=== PATIENT | female | born 1955 | race Caucasian/White ===

== ENCOUNTER 2017-11-15 09:16 | Inpatient (IN) ==
--- NOTE | 2017-11-15 10:01 | Emergency Department Note ---
Disposition Clinical Impression: Syncope Qualifiers: Syncope type: unspecified Qualified Code(s): R55 - Syncope and collapse Disposition: Still a Patient Referrals: Karolina Melo [Primary Care Provider] - General Adult HPI - General Chief complaint: ED Recheck/Abnormal Lab/Rx Stated complaint: Low potassium Time Seen by Provider: 11/15/17 09:34 Source: patient, family Limitations: no limitations - History of Present Illness Pain Scale: 6 - Related Data Home Medications Medication Instructions Recorded Confirmed Acetaminophen [Tylenol] 500 mg PO Q6HR PRN 01/20/16 11/15/17 Amitriptyline [Elavil] 150 mg PO HS 01/20/16 11/15/17 Cholecalciferol (Vitamin D3) 5,000 unit PO DAILY 01/20/16 11/15/17 [Vitamin D3] Docusate Sodium [Colace] 200 mg PO DAILY 01/20/16 11/15/17 FLUoxetine HCl [Prozac] 40 mg PO DAILY 01/20/16 11/15/17 Multivitamin [Multi-Day Vitamins] 1 tab PO DAILY 01/20/16 11/15/17 Naproxen [Naprosyn] 250 mg PO Q6H PRN 01/20/16 11/15/17 Vitamin B Complex [B Complex] 1 tab PO DAILY 01/20/16 11/15/17 valACYclovir [Valtrex] 500 mg PO DAILY 01/20/16 11/15/17 Buspirone HCl [Buspar] 15 mg PO BID 09/18/17 11/15/17 Propranolol [Inderal] 10 mg PO TID PRN 09/18/17 11/15/17 Atorvastatin Calcium [Lipitor] 20 mg PO HS 11/15/17 11/15/17 DiphenhydraMINE [Benadryl] 50 mg PO HS 11/15/17 11/15/17 Levothyroxine [Synthroid] 88 mcg PO 0630 11/15/17 11/15/17 Previous Rx's Medication Instructions Recorded Oxycodone HCl/Acetaminophen 1 each PO Q4HR 5 Days #25 tablet 11/09/17 [Percocet 5-325 mg Tablet] Allergies Allergy/AdvReac Type Severity Reaction Status Date / Time codeine Allergy Anaphylaxis Verified 11/15/17 07:30 Iodinated Contrast- Oral and Allergy Anaphylaxis Verified 11/15/17 07:30 IV Dye [Iodinated Contrast Media - IV Dye] morphine Allergy Anaphylaxis Verified 11/15/17 07:30 phenobarbital Allergy Anxiety Verified 11/15/17 07:30 promethazine [From Phenergan] Allergy Shakiness Verified 11/15/17 07:30 titanium Allergy See Verified 11/15/17 07:30 Comments Past Medical History - Past Medical History Medical history: Reports: asthma, GERD, kidney stones, thyroid disease, other Surgical history: Reports: appendectomy, cancer surgery, cataract, cholecystectomy, herniorrhaphy, hysterectomy, orthopedic, other, splenectomy, ZIGGY/BSO, thyroidectomy, other Psychiatric history: Reports: anxiety, depression, other 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 I agree with the documented findings, disposition and treatment plan as described except to the extent set forth below. ED attending: Patient's emergency medicine resident Dr. Ethel CONTRERAS. Please see copy of this note for H&P evaluation and management and ED disposition. We both had independent [id number] time in contact with this patient. Briefly: 8-year-old female sent from [facility]. His postoperative the humeral fixation by orthopedic surgery however they determined that her potassium was low. In addition to low potassium patient has had several incidents of well defined sudden onset syncope where she struck her head several times. No external signs of trauma GCS 15 patient is on blood thinner patient will get a reevaluation of her electrolytes will do this and be workup with admission anticipated. Head CT EKG screening labs are also pending. Provided 30 minutes of critical care service for this patient. Time: 09:59 Vital Signs Temperature 98.5 F 11/15/17 09:25 Pulse Rate 64 11/15/17 09:25 Respiratory Rate 18 11/15/17 09:25 Blood Pressure 112/67 11/15/17 09:25 O2 Sat by Pulse Oximetry 96 11/15/17 09:25 Temperature 98.5 F 11/15/17 09:25 Pulse Rate 64 11/15/17 09:25 Respiratory Rate 18 11/15/17 09:25 Blood Pressure 112/67 11/15/17 09:25 O2 Sat by Pulse Oximetry 96 11/15/17 09:25 Oxygen Delivery Oxygen Delivery Room Air
[2017-11-15 11:14] LABS: Basophils # 0.1 K/mcL (0.0-0.2); Basophils % 0.6 %; Eosinophils # 1.6 K/mcL (0.0-0.6); Eosinophils % 11.6 %; Hematocrit 30.3 % (35.3-44.9); Hemoglobin 9.8 g/dL (11.5-15.4); Immature Granulocytes % 0.6 % (0-4); Lymphocytes % 43.3 %; Mean Corpuscular HGB Conc 32.3 g/dL (31.6-35.5); Mean Corpuscular Hemoglobin 27.5 pg (28.0-33.3); Mean Corpuscular Volume 84.9 fL (83.0-100.0); Monocytes # 1.7 K/mcL (0.0-1.3); Monocytes % 12.5 %; Neutrophils # 4.4 K/mcL (1.6-8.9); Nucleated Red Blood Cells 0.5 /100 WBC (0); Platelet Count 417 K/mcL (140-400); Red Blood Count 3.57 M/mcL (3.82-4.97); Red Cell Distribution Width 19.2 % (11.5-14.5); Segmented Neutrophils % 31.4 %
[2017-11-15 11:27] LABS: Troponin I < 0.03 ng/mL (< 0.04)
[2017-11-15 11:49] LABS: BUN/Creatinine Ratio 18 (6-26); Blood Urea Nitrogen 12 mg/dL (8-23); Calcium 8.1 mg/dL (8.6-10.3); Carbon Dioxide 25 mEq/L (23-29); Chloride 103 mEq/L (98-107); Glucose 92 mg/dL (70-105); Osmolality,Calculated 287 (280-300); Potassium 3.2 mEq/L (3.5-5.1); Sodium 139 mEq/L (136-145); eGFR For African Americans > 60 (> 60); eGFR For Non-African Americans > 60 (> 60)
[2017-11-15] MEDS ORDERED: *HR* FentaNYL (PF) 100 MCG/2 ML VIAL IVP ONE (12:04)
[2017-11-15] MEDS ORDERED: Potassium Effervescent 25 MEQ TABLET.EFF PO ONE (12:05)
--- NOTE | 2017-11-15 12:05 | Emergency Department Note ---
Disposition Clinical Impression: Hypokalemia Syncope Qualifiers: Syncope type: unspecified Qualified Code(s): R55 - Syncope and collapse Disposition: Admitted As Inpatient Condition: Good Time of Disposition: 12:32 General Adult HPI - General Chief complaint: ED Recheck/Abnormal Lab/Rx Stated complaint: Low potassium Time Seen by Provider: 11/15/17 09:34 Source: patient, family Mode of arrival: wheelchair Limitations: no limitations Nursing Notes Reviewed: Yes Vital Signs Reviewed: Yes - History of Present Illness HPI Narrative: 62-year-old female with chronic interstitial cystitis, hypothyroidism presenting to the emergency department with chief complaint of hypokalemia and syncope. Patient states for the past 5-6 days she has been having random episodes of syncope. These have been witnessed by her . She denies any prodrome to these syncopal episodes. She denies chest pain or shortness of breath. Denies dizziness. She states she will just passed out. According to at bedside patient has fallen multiple times in the past 5-6 days. After the first fall she had multiple bruising and abrasions to the left side. Second fall left her with a right humeral fracture. Patient was sent to the emergency department at that time and referred to orthopedics. Patient went in today for a outpatient humeral fixation and it was found that she was hypokalemic. She was then sent here for further evaluation and admission for her hypokalemia. At this time patient denies any chest pain, shortness of breath or dizziness. Denies any fevers or recent illnesses. Pain Scale: 3 - Related Data Home Medications Medication Instructions Recorded Confirmed Acetaminophen [Tylenol] 500 mg PO Q6HR PRN 01/20/16 11/15/17 Amitriptyline [Elavil] 150 mg PO HS 01/20/16 11/15/17 Cholecalciferol (Vitamin D3) 5,000 unit PO DAILY 01/20/16 11/15/17 [Vitamin D3] Docusate Sodium [Colace] 200 mg PO DAILY 01/20/16 11/15/17 FLUoxetine HCl [Prozac] 40 mg PO DAILY 01/20/16 11/15/17 Multivitamin [Multi-Day Vitamins] 1 tab PO DAILY 01/20/16 11/15/17 Naproxen [Naprosyn] 250 mg PO Q6H PRN 01/20/16 11/15/17 Vitamin B Complex [B Complex] 1 tab PO DAILY 01/20/16 11/15/17 valACYclovir [Valtrex] 500 mg PO DAILY 01/20/16 11/15/17 Buspirone HCl [Buspar] 15 mg PO BID 09/18/17 11/15/17 Propranolol [Inderal] 10 mg PO TID PRN 09/18/17 11/15/17 Atorvastatin Calcium [Lipitor] 20 mg PO HS 11/15/17 11/15/17 DiphenhydraMINE [Benadryl] 50 mg PO HS 11/15/17 11/15/17 Levothyroxine [Synthroid] 88 mcg PO 0630 11/15/17 11/15/17 Previous Rx's Medication Instructions Recorded Oxycodone HCl/Acetaminophen 1 each PO Q4HR 5 Days #25 tablet 11/09/17 [Percocet 5-325 mg Tablet] Allergies Allergy/AdvReac Type Severity Reaction Status Date / Time codeine Allergy Anaphylaxis Verified 11/15/17 07:30 Iodinated Contrast- Oral and Allergy Anaphylaxis Verified 11/15/17 07:30 IV Dye [Iodinated Contrast Media - IV Dye] morphine Allergy Anaphylaxis Verified 11/15/17 07:30 phenobarbital Allergy Anxiety Verified 11/15/17 07:30 promethazine [From Phenergan] Allergy Shakiness Verified 11/15/17 07:30 titanium Allergy See Verified 11/15/17 07:30 Comments All systems ED: reviewed and negative except as stated. Neurological: Reports: other (syncope) Past Medical History - Past Medical History Attestation: Yes The following information was validated with the patient. 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 Absent: scleral icterus, conjunctival injection - ENT ENT exam: normal exam, mucous membranes moist - Neck Neck exam: Present: normal inspection, full ROM. Absent: tenderness, meningismus - Chest Chest inspection: Present: normal inspection, symmetric chest wall rise. Absent : tenderness, rash - Respiratory Respiratory exam: Present: normal lung sounds bilaterally. Absent: respiratory distress, wheezes - Cardiovascular Cardiovascular exam: Present: regular rate, normal rhythm, normal heart sounds - Abdominal Exam Abdominal exam: Present: soft, Non-Tender. Absent: distention, guarding, rebound - Extremities Exam Extremities exam: Present: other (Right arm in sling. Ecchymosis noted to the left upper extremity and right upper extremity. Distal pulses 2+. Ecchymosis noted to the left outer thigh. Abrasions that are well-healing noted over the left knee. ) - Neurological Exam Neurological exam: Present: alert, oriented X3, CN II-XII intact. Absent: motor sensory deficit - Psychiatric Psychiatric exam: Present: normal affect, normal mood - Skin Skin exam: Present: warm, intact Course Course Narrative: 62-year-old female sent to the emergency department for hypokalemia and syncope. Concern for random syncopal episodes at this time. We will perform cardiac workup along with CT of the head. This will include troponin and EKG with CT of the head along with CBC and BMP. Patient is alert and oriented 3 in the room with stable vital signs. Disposition most likely admission but pending results. Patient agrees with this plan. - Reevaluation(s) Reevaluation #1: Patient's laboratory analysis shows hypokalemia at 3.2. We will orally replete her. Due to patient's syncopal episodes we will plan to admit her for further evaluation. CT of the head within normal limits. Patient is alert and oriented 3 in the room with stable vital signs. I spoke with the hospitalist on-call Dr. Cruz who agrees to accept the patient at this time. Vital Signs Temperature 98.5 F 11/15/17 09:25 Pulse Rate 64 11/15/17 09:25 Respiratory Rate 18 11/15/17 09:25 Blood Pressure 112/67 11/15/17 09:25 O2 Sat by Pulse Oximetry 96 11/15/17 09:25 Temperature 98.5 F 11/15/17 09:25 Pulse Rate 66 03/23/18 11:03 Respiratory Rate 14 11/15/17 11:03 Blood Pressure 124/71 11/15/17 11:03 O2 Sat by Pulse Oximetry 96 11/15/17 11:03 Oxygen Delivery Oxygen Delivery Room Air Medical Decision Making - Lab Data Result diagrams: 11/15/17 10:52 11/15/17 10:52 Lab Results 11/15/17 11/15/17 Range/Units 10:52 10:52 WBC 13.9 H (4.3-11.1) K/mcL RBC 3.57 L (3.82-4.97) M/mcL Hgb 9.8 L (11.5-15.4) g/dL Hct 30.3 L (35.3-44.9) % MCV 84.9 (83.0-100.0) fL MCH 27.5 L (28.0-33.3) pg MCHC 32.3 (31.6-35.5) g/dL RDW 19.2 H (11.5-14.5) % Plt Count 417 H (140-400) K/mcL MPV 12.0 (9.4-12.4) fL Immature Gran % 0.6 (0-4) % Seg Neutrophils % 31.4 % Lymphocytes % 43.3 % Monocytes % 12.5 % Eosinophils % 11.6 % Basophils % 0.6 % Neutrophils # 4.4 (1.6-8.9) K/mcL Lymphocytes # 6.0 H (0.6-4.6) K/mcL Monocytes # 1.7 H (0.0-1.3) K/mcL Eosinophils # 1.6 H (0.0-0.6) K/mcL Basophils # 0.1 (0.0-0.2) K/mcL Nucleated RBCs/100 WBC 0.5 H (0) /100 WBC Sodium 139 (136-145) mEq/L Potassium 3.2 L (3.5-5.1) mEq/L Chloride 103 (98-107) mEq/L Carbon Dioxide 25 (23-29) mEq/L BUN 12 (8-23) mg/dL Creatinine 0.66 (0.60-1.20) mg/dL Est GFR ( Amer) > 60 (> 60) Est GFR (Non-Af Amer) > 60 (> 60) BUN/Creatinine Ratio 18 (6-26) Glucose 92 (70-105) mg/dL Calculated Osmolality 287 (280-300) Calcium 8.1 L (8.6-10.3) mg/dL Troponin I < 0.03 (< 0.04) ng/mL - EKG Data EKG #1 EKG attestation: Yes I reviewed and interpreted this EKG. EKG results narrative: Sinus bradycardia. 59 bpm. Nonspecific T wave abnormality. GA interval 182, QRS 109, QTC 448. No signs of acute ST segment elevation or ischemia noted. Compared to previous EKG completed on 11/09/2017 no significant changes noted
[2017-11-15] MEDS ORDERED: *HR* OxyCODONE/APAP 7.5/325 TABLET PO PRN (12:51)
--- NOTE | 2017-11-15 13:09 | Internal Med History&Physical ---
<Phoenix Kellogg J - Last Filed: 11/15/17 15:00> Date of Encounter: 11/15/17 Time of Encounter: 13:07 Assessment and Plan (1) Syncope Current visit: Yes Status: Acute fall precaution, assist patient getting up from bed, monitor blood pressure . Echo cardiogram carotid ultrasound, Telemetry, orthostatic blood pressure Qualifiers: Syncope type: unspecified Qualified Code(s): R55 - Syncope and collapse (2) Hypokalemia Current visit: Yes Status: Acute Replete potassium with replacement protocol, recheck every 6hrs and place patient on telemetry (3) Fracture of humerus, proximal, right, closed Current visit: Yes Status: Acute Patient scheduled for Surgery to fix fractured humerus Qualifiers: Encounter type: initial encounter Fracture alignment: nondisplaced Qualified Code(s): S42.294A - Other nondisplaced fracture of upper end of right humerus, initial encounter for closed fracture (4) Anxiety and depression Current visit: Yes Status: Chronic continue home prozac and propranalol Internal Medicine - H&P: HPI Chief complaint: Hypokalemia, syncope and Right proximal humerus fracture Admitted From: Emergency Dept Plans for Post Hospital Care: Home History of present illness: Ms. Izaguirre is a 62 year old female female with medical history that include thyroidectomy, cholecystectomy, hysterectomy, splenectomy and bariatric surgery. Patient stated she has been having syncopal episode for the past seven days which resulted in six falls . The fall was responsible for the right humeral fracture. While being prepared for orthopedic intervention she was found to have hypokalemia. She is being admited to manage the hypokalemia, pain with planned surgicak intervention for Saturday11/18/2017. Past Med Surg Social Fam HX - Past Medical History Medical history: asthma, GERD, kidney stones, thyroid disease, other Psychiatric history: anxiety, depression, other - Past Surgical History Surgical History: appendectomy, cancer surgery, cataract, cholecystectomy, herniorrhaphy, hysterectomy, orthopedic, other, splenectomy, ZIGGY/BSO, thyroidectomy, other - Social History Smoking Status: Never smoker Smokeless Tobacco Status: No Alcohol use: occasionally Drug use: none - Family History Mother Living Status: Hx Family Cardiac Disorders: No Hx Family Respiratory Disorders: Yes (COPD) Hx Family Cancer: No Hx Family GI Disorders: No Hx Family Endocrine Disorder: No Hx Family Neuromuscular Disorders: No Hx Family Neurologic Disorders: No Hx Family HEENT Disorders: No Hx Family Autoimmune Disorders: No Father Living Status: Hx Family Cardiac Disorders: Yes (CHF, 4 MIs) Hx Family Respiratory Disorders: Yes (COPD) Hx Family Cancer: No Hx Family GI Disorders: No Hx Family Endocrine Disorder: No Hx Family Neuromuscular Disorders: No Hx Family Neurologic Disorders: No Hx Family HEENT Disorders: No Hx Family Autoimmune Disorders: No Internal Medicine - H&P: Meds Amitriptyline [Elavil] 150 mg PO HS 01/20/16 [History] Cholecalciferol (Vitamin D3) [Vitamin D3] 5,000 unit PO DAILY 01/20/16 [History] Docusate Sodium [Colace] 200 mg PO DAILY 01/20/16 [History] FLUoxetine HCl [Prozac] 40 mg PO DAILY 01/20/16 [History] Multivitamin [Multi-Day Vitamins] 1 tab PO DAILY 01/20/16 [History] Vitamin B Complex [B Complex] 1 tab PO DAILY 01/20/16 [History] valACYclovir [Valtrex] 500 mg PO DAILY 01/20/16 [History] Buspirone HCl [Buspar] 15 mg PO BID 09/18/17 [History] Propranolol [Inderal] 10 mg PO TID PRN 09/18/17 [History] Atorvastatin Calcium [Lipitor] 20 mg PO HS 11/15/17 [History] DiphenhydraMINE [Benadryl] 50 mg PO HS 11/15/17 [History] Levothyroxine [Synthroid] 88 mcg PO 0630 11/15/17 [History] Metoclopramide HCl 5 mg PO BID PRN 11/15/17 [History] Oxycodone HCl/Acetaminophen [Percocet 7.5-325 mg Tablet] 1 tab PO Q8H PRN [History] 3 Allergy/AdvReac Type Severity Reaction Status Date / Time codeine Allergy Anaphylaxis Verified 11/15/17 07:30 Iodinated Contrast- Oral and Allergy Anaphylaxis Verified 11/15/17 07:30 IV Dye [Iodinated Contrast Media - IV Dye] morphine Allergy Anaphylaxis Verified 11/15/17 07:30 phenobarbital Allergy Anxiety Verified 11/15/17 07:30 promethazine [From Phenergan] Allergy Shakiness Verified 11/15/17 07:30 titanium Allergy See Verified 11/15/17 07:30 Comments All Systems PM: A 10-system review of systems was performed and is negative for pertinent findings except as documented above in the HPI. - Constitutional Constitutional: falls - Cardiovascular Cardiovascular ROS IM: syncope - Respiratory Respiratory: cough - Genitourinary Genitourinary: as per HPI - Musculoskeletal Musculoskeletal ROS IM: arthralgias, limited range of motion - Integumentary Integumentary IM: as per HPI - Neurological Neurological ROS: as per HPI - Psychiatric Psychiatric: as per HPI, anxiety - Hematologic/Lymphatic Hematologic/Lymphatic: as per HPI - Constitutional Vitals: Temp Pulse Resp BP Pulse Ox 98.5 F 66 16 124/71 96 11/15/17 09:25 11/15/17 11:03 11/15/17 12:31 11/15/17 12:31 11/15/17 11:03 General appearance: Present: A&O X 3, pleasant, answers questions appropriately - Eye Eye exam: Present: PERRL Pupils: Present: PERRL - ENT ENT exam: Present: mucous membranes dry, mucous membranes moist - Neck Neck exam general surgery: Present: supple, trachea midline - Respiratory Respiratory exam: Present: CTAB - GI/Abdominal GI/Abdominal exam: Present: normal bowel sounds - Neurological Exam Neurological exam: Present: oriented X3 - Psychiatric Psychiatric exam: Present: normal mood Internal Med - H&P Results - Labs CBC & Chem 7: 11/15/17 10:52 11/15/17 10:52 <Silas Cruz - Last Filed: 11/15/17 15:17> Date of Encounter: 11/15/17 Time of Encounter: 13:45 Internal Medicine - H&P: [facility] History of present illness: Ms. Izaguirre is a 62 year old female All Systems PM: A 10-system review of systems was performed and is negative for pertinent findings except as documented above in the HPI. - Constitutional Vitals: Temp Pulse Resp BP Pulse Ox 98.2 F 76 18 105/59 95 11/15/17 13:19 11/15/17 13:19 11/15/17 13:19 11/15/17 13:19 11/15/17 13:19 Internal Med - H&P Results - Labs CBC & Chem 7: 11/15/17 10:52 11/15/17 10:52 - Attending Attestation I examined this patient and my medical decision-making was reviewed with the Nurse Practitioner, Phoenix Kellogg. I agree with the documented findings, disposition and treatment plan as described with any changes as documented below. 62-year-old female patient with history of asthma, gastroesophageal reflux disease, hypothyroidism, bariatric surgery presented to the ER from same day surgery as she was found to be hypokalemic. She has been having recurrent episodes of syncope over the past week. She had fallen twice on one day and ended up having fracture of her right humerus and radial head. She was scheduled to undergo surgery today when as part of workup her potassium levels were drawn. She was found to have a potassium of 2.9. She denies any dizziness or lightheadedness at this time. Her syncopal episodes have been spontaneous without any prodromal symptoms. No seizure-like activity. No bowel or bladder incontinence. She has episodes of constipation and diarrhea alternatively but has not had any episodes of recurrent diarrhea recently. She has interstitial cystitis and has dysuria occasionally. She has noted decrease in her urine output. She also feels very dry and thirsty. On examination, she has decreased skin turgor, mucous membranes are dry. She has her right elbow in a sling. Abdomen is soft nontender. Heart sounds are normal. Breath sounds are normal. She has bruises on her upper extremities due to fall. EKG shows sinus bradycardia with QRS of 109 and QTC of 448. No acute ST segment changes. CT scan of the head shows no acute stroke or bleed. Chest x- ray shows bibasilar atelectasis. Patient has acute fractures of proximal right humerus and right scapula. Recurrent episodes of syncope: Will monitor with telemetry. Trend troponins. Check orthostatic blood pressure. 2-D echocardiogram and carotid Dopplers. Monitor vital signs closely. Replace electrolytes. Patient does appear to be dehydrated. We will rehydrate. Monitor vital signs closely. High risk for complications due to recurrent episodes of syncope. Hypokalemia: Appears to be chronic. Will check urine electrolytes. Replete orally. Check magnesium levels and replace if needed. Right humerus fracture: Orthopedics consultation. Plan take patient on for surgery on Saturday. DVT prophylaxis with subcutaneous heparin.
--- NOTE | 2017-11-15 14:08 | Internal Med History&Physical ---
Date of Encounter: 11/15/17 Assessment and Plan (1) Syncope Current visit: Yes Status: Acute fall precaution, assist patient getting up from bed, monitor blood pressure . Echo cardiogram carotid ultrasound, Telemetry, orthostatic blood pressure Qualifiers: Syncope type: unspecified Qualified Code(s): R55 - Syncope and collapse (2) Hypokalemia Current visit: Yes Status: Acute (3) Fracture of humerus, proximal, right, closed Current visit: Yes Status: Acute Qualifiers: Encounter type: initial encounter Fracture alignment: nondisplaced (4) Anxiety and depression Current visit: Yes Status: Chronic Internal Medicine - H&P: HPI History of present illness: Ms. Izaguirre is a 62 year old female Past Med Surg Social Fam HX - Past Medical History Medical history: asthma, GERD, kidney stones, thyroid disease, other Psychiatric history: anxiety, depression, other - Past Surgical History Surgical History: appendectomy, cancer surgery, cataract, cholecystectomy, herniorrhaphy, hysterectomy, orthopedic, other, splenectomy, ZIGGY/BSO, thyroidectomy, other - Social History Smoking Status: Never smoker Smokeless Tobacco Status: No Alcohol use: occasionally Drug use: none - Family History Mother Living Status: Hx Family Cardiac Disorders: No Hx Family Respiratory Disorders: Yes (COPD) Hx Family Cancer: No Hx Family GI Disorders: No Hx Family Endocrine Disorder: No Hx Family Neuromuscular Disorders: No Hx Family Neurologic Disorders: No Hx Family HEENT Disorders: No Hx Family Autoimmune Disorders: No Father Living Status: Hx Family Cardiac Disorders: Yes (CHF, 4 MIs) Hx Family Respiratory Disorders: Yes (COPD) Hx Family Cancer: No Hx Family GI Disorders: No Hx Family Endocrine Disorder: No Hx Family Neuromuscular Disorders: No Hx Family Neurologic Disorders: No Hx Family HEENT Disorders: No Hx Family Autoimmune Disorders: No Internal Medicine - H&P: Meds Amitriptyline [Elavil] 150 mg PO HS 01/20/16 [History] Cholecalciferol (Vitamin D3) [Vitamin D3] 5,000 unit PO DAILY 01/20/16 [History] Docusate Sodium [Colace] 200 mg PO DAILY 01/20/16 [History] FLUoxetine HCl [Prozac] 40 mg PO DAILY 01/20/16 [History] Multivitamin [Multi-Day Vitamins] 1 tab PO DAILY 01/20/16 [History] Vitamin B Complex [B Complex] 1 tab PO DAILY 01/20/16 [History] valACYclovir [Valtrex] 500 mg PO DAILY 01/20/16 [History] Buspirone HCl [Buspar] 15 mg PO BID 09/18/17 [History] Propranolol [Inderal] 10 mg PO TID PRN 09/18/17 [History] Atorvastatin Calcium [Lipitor] 20 mg PO HS 11/15/17 [History] DiphenhydraMINE [Benadryl] 50 mg PO HS 11/15/17 [History] Levothyroxine [Synthroid] 88 mcg PO 0630 11/15/17 [History] Metoclopramide HCl 5 mg PO BID PRN 11/15/17 [History] Oxycodone HCl/Acetaminophen [Percocet 7.5-325 mg Tablet] 1 tab PO Q8H PRN [History] 3 Allergy/AdvReac Type Severity Reaction Status Date / Time codeine Allergy Anaphylaxis Verified 11/15/17 07:30 Iodinated Contrast- Oral and Allergy Anaphylaxis Verified 11/15/17 07:30 IV Dye [Iodinated Contrast Media - IV Dye] morphine Allergy Anaphylaxis Verified 11/15/17 07:30 phenobarbital Allergy Anxiety Verified 11/15/17 07:30 promethazine [From Phenergan] Allergy Shakiness Verified 11/15/17 07:30 titanium Allergy See Verified 11/15/17 07:30 Comments All Systems PM: A 10-system review of systems was performed and is negative for pertinent findings except as documented above in the HPI. - Constitutional Vitals: Temp Pulse Resp BP Pulse Ox 98.2 F 76 18 105/59 95 11/15/17 13:19 11/15/17 13:19 11/15/17 13:19 11/15/17 13:19 11/15/17 13:19 General appearance: Present: A&O X 3, pleasant, answers questions appropriately Internal Med - H&P Results - Labs CBC & Chem 7: 11/15/17 10:52 11/15/17 10:52
--- NOTE | 2017-11-15 14:26 | Orthopedic Consult Note ---
Date of Encounter: 11/15/17 Time of Encounter: 12:00 Assessment and Plan (1) Fracture of humerus, proximal, right, closed Current Visit: Yes Status: Acute Right proximal humerus fracture Will plan for surgery for Saturday so long as patient is stabilized medically and cleared for surgery at that time. NO SHOULDER MOTION to RUE Continue in sling. NWB to RUE. Ice and pain medication as indicated and recommended by hospitalist team. Thank you for this consultation. Qualifiers: Encounter type: initial encounter Fracture alignment: nondisplaced Qualified Code(s): S42.294A - Other nondisplaced fracture of upper end of right humerus, initial encounter for closed fracture (2) Hypokalemia Current Visit: Yes Status: Acute History of Present Illness Chief complaint: Right humerus fracture HPI: Ms. Izaguirre is a 62 year old female presented to [facility] today for surgery for right proximal humerus orif with Dr. Carlson. Upon preop work up she admitted to numerous falls over the past week, on one occasion hitting her head. She states this was the fall that lead to her right arm fracture. She was found to be hypokalemic and was transferred to ED bed for evaluation. Patient states she is otherwise doing well with no changes to extremities since seen this morning by anesthesia. Patient resting comfortably in ED bed eating lunch. She is alert and oriented x 3. She has right arm in slingshot as directed. ROM right wrist and hand intact. Neurovascularly intact. Right proximal humerus fracture Will plan for surgery for Saturday so long as patient is stabilized medically and cleared for surgery at that time. NO SHOULDER MOTION to RUE Continue in sling. NWB to RUE. Ice and pain medication as indicated and recommended by hospitalist team. Thank you for this consultation. Past Med Surg Social Fam HX - Past Medical History Medical history: asthma, GERD, kidney stones, thyroid disease, other Psychiatric history: anxiety, depression, other - Past Surgical History Surgical History: appendectomy, cancer surgery, cataract, cholecystectomy, herniorrhaphy, hysterectomy, orthopedic, other, splenectomy, ZIGGY/BSO, thyroidectomy, other - Social History Smoking Status: Never smoker Smokeless Tobacco Status: No Alcohol use: occasionally Drug use: none - Family History Mother Living Status: Hx Family Cardiac Disorders: No Hx Family Respiratory Disorders: Yes (COPD) Hx Family Cancer: No Hx Family GI Disorders: No Hx Family Endocrine Disorder: No Hx Family Neuromuscular Disorders: No Hx Family Neurologic Disorders: No Hx Family HEENT Disorders: No Hx Family Autoimmune Disorders: No Father Living Status: Hx Family Cardiac Disorders: Yes (CHF, 4 MIs) Hx Family Respiratory Disorders: Yes (COPD) Hx Family Cancer: No Hx Family GI Disorders: No Hx Family Endocrine Disorder: No Hx Family Neuromuscular Disorders: No Hx Family Neurologic Disorders: No Hx Family HEENT Disorders: No Hx Family Autoimmune Disorders: No Medications and Allergies Amitriptyline [Elavil] 150 mg PO HS 01/20/16 [History] Cholecalciferol (Vitamin D3) [Vitamin D3] 5,000 unit PO DAILY 01/20/16 [History] Docusate Sodium [Colace] 200 mg PO DAILY 01/20/16 [History] FLUoxetine HCl [Prozac] 40 mg PO DAILY 01/20/16 [History] Multivitamin [Multi-Day Vitamins] 1 tab PO DAILY 01/20/16 [History] Vitamin B Complex [B Complex] 1 tab PO DAILY 01/20/16 [History] valACYclovir [Valtrex] 500 mg PO DAILY 01/20/16 [History] Buspirone HCl [Buspar] 15 mg PO BID 09/18/17 [History] Propranolol [Inderal] 10 mg PO TID PRN 09/18/17 [History] Atorvastatin Calcium [Lipitor] 20 mg PO HS 11/15/17 [History] DiphenhydraMINE [Benadryl] 50 mg PO HS 11/15/17 [History] Levothyroxine [Synthroid] 88 mcg PO 0630 11/15/17 [History] Metoclopramide HCl 5 mg PO BID PRN 11/15/17 [History] Oxycodone HCl/Acetaminophen [Percocet 7.5-325 mg Tablet] 1 tab PO Q8H PRN [History] 3 Allergy/AdvReac Type Severity Reaction Status Date / Time codeine Allergy Anaphylaxis Verified 11/15/17 07:30 Iodinated Contrast- Oral and Allergy Anaphylaxis Verified 11/15/17 07:30 IV Dye [Iodinated Contrast Media - IV Dye] morphine Allergy Anaphylaxis Verified 11/15/17 07:30 phenobarbital Allergy Anxiety Verified 11/15/17 07:30 promethazine [From Phenergan] Allergy Shakiness Verified 11/15/17 07:30 titanium Allergy See Verified 11/15/17 07:30 Comments All Systems Reviewed: The remainder of the systems were reviewed and are negative Physical Exam - Constitutional Vitals: Temp Pulse Resp BP Pulse Ox 98.2 F 76 18 105/59 95 11/15/17 13:19 11/15/17 13:19 11/15/17 13:19 11/15/17 13:19 11/15/17 13:19 Results - Labs Result Diagrams: 11/15/17 10:52 11/15/17 10:52 Labs: Abnormal lab results WBC 13.9 K/mcL (4.3-11.1) H 11/15/17 10:52 RBC 3.57 M/mcL (3.82-4.97) L 11/15/17 10:52 Hgb 9.8 g/dL (11.5-15.4) L 11/15/17 10:52 Hct 30.3 % (35.3-44.9) L 11/15/17 10:52 MCH 27.5 pg (28.0-33.3) L 11/15/17 10:52 RDW 19.2 % (11.5-14.5) H 11/15/17 10:52 Plt Count 417 K/mcL (140-400) H 11/15/17 10:52 Lymphocytes # 6.0 K/mcL (0.6-4.6) H 11/15/17 10:52 Monocytes # 1.7 K/mcL (0.0-1.3) H 11/15/17 10:52 Eosinophils # 1.6 K/mcL (0.0-0.6) H 11/15/17 10:52 Nucleated RBCs/100 WBC 0.5 /100 WBC (0) H 11/15/17 10:52 Potassium 3.2 mEq/L (3.5-5.1) L 11/15/17 10:52 Calcium 8.1 mg/dL (8.6-10.3) L 11/15/17 10:52 All other labs normal. Consult Discharge Plan - Plan Referrals: Karolina Melo [Primary Care Provider] -
[2017-11-15] MEDS ORDERED: Ringers Solution, Lactated 1,000 ML IVC SCH (14:30)
--- NOTE | 2017-11-15 15:37 | Electrocardiograph Report ---
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
[2017-11-15] MEDS ORDERED: Naloxone 0.4 MG/ML INJ IVP PRN (16:29)
[2017-11-15] MEDS: *HR* Heparin 5,000 UNIT/ML VIAL SQ SCH (17:03)
[2017-11-15] MEDS: Ringers Solution, Lactated 1,000 ML IVC SCH ×2 (17:04→23:16)
[2017-11-15 17:32] LABS: Bilirubin,Urine Negative (Negative); Blood,Urine Negative (Negative); Clarity,Urine Clear (Clear); Color,Urine Yellow (Yellow); Glucose,Urine (UA) Normal (Normal); Ketones,Urine Negative (Negative); Leukocyte Esterase,Urine Negative (Negative); Nitrite,Urine Negative (Negative); PH,Urine 6.5 pH Units (5.0-8.0); Protein,Urine Negative (Neg-Trace); Specific Gravity,Urine 1.015 (1.010-1.025); Urobilinogen,Urine Normal (Normal)
[2017-11-15 17:53] LABS: Potassium,Urine 6.5 mEq/L; Sodium, Urine 25.1 mEq/L
[2017-11-15 18:02] LABS: Magnesium 1.9 mg/dL (1.6-2.6)
--- NOTE | 2017-11-15 19:38 | Anesthesia Evaluation PreOp ---
Date of Encounter: 11/15/17 Time of Encounter: 21:04 - Past History Planned Operation: Right proximal humerus ORIF Cardiac History: HTN, Hyperlipidemia Pulmonary History: Asthma (Chronic bronchitis) [employer] History: Syncope (Syncopal episodes for 1 week resulting in fall on 11/09. Comminuted fx R humeral neck, fx scapula.) Other Medical History: Thyroid, GERD (Post bariatric surgery, significant gastroparesis and nausea.), Other (Hypokalemia, anxiety, depression. Post- splenectomy syndrome: anemia, thrombocytosis, leukocytosis.) Anesthesia History: No Prior Anesthetic Complications, Past Anesthesia ( Thyroidectomy, cholecystectomy, hysterectomy, splenectomy, appendectomy, bariatric surgery, multiple other.) Alcohol Use: occasionally Drug use: none Medications and Allergies Amitriptyline [Elavil] 150 mg PO HS 01/20/16 [History] Cholecalciferol (Vitamin D3) [Vitamin D3] 5,000 unit PO DAILY 01/20/16 [History] Docusate Sodium [Colace] 200 mg PO DAILY 01/20/16 [History] FLUoxetine HCl [Prozac] 40 mg PO DAILY 01/20/16 [History] Multivitamin [Multi-Day Vitamins] 1 tab PO DAILY 01/20/16 [History] Vitamin B Complex [B Complex] 1 tab PO DAILY 01/20/16 [History] valACYclovir [Valtrex] 500 mg PO DAILY 01/20/16 [History] Buspirone HCl [Buspar] 15 mg PO BID 09/18/17 [History] Propranolol [Inderal] 10 mg PO TID PRN 09/18/17 [History] Atorvastatin Calcium [Lipitor] 20 mg PO HS 11/15/17 [History] DiphenhydraMINE [Benadryl] 50 mg PO HS 11/15/17 [History] Levothyroxine [Synthroid] 88 mcg PO 0630 11/15/17 [History] Metoclopramide HCl 5 mg PO BID PRN 11/15/17 [History] Oxycodone HCl/Acetaminophen [Percocet 7.5-325 mg Tablet] 1 tab PO Q8H PRN [History] 3 Allergy/AdvReac Type Severity Reaction Status Date / Time codeine Allergy Anaphylaxis Verified 11/15/17 07:30 Iodinated Contrast- Oral and Allergy Anaphylaxis Verified 03/23/18 07:30 IV Dye [Iodinated Contrast Media - IV Dye] morphine Allergy Anaphylaxis Verified 11/15/17 07:30 phenobarbital Allergy Anxiety Verified 11/15/17 07:30 promethazine [From Phenergan] Allergy Shakiness Verified 11/15/17 07:30 titanium Allergy See Verified 11/15/17 07:30 Comments - Meds/Allergy Pre-op Review Medications Reviewed: Yes Allergies Reviewed: Yes Beta Blockers on Current Med List: Yes Anesthesia Results - Labs 11/15/17 10:52 11/15/17 10:52 - Imaging Additional studies: TTE 11/15/2017: LVEF 50-55%. No pulmonary hypertension. No significant valvular dysfunction. Carotis duplex 11/15/2017: The bilateral carotid arteries have minimal plaque throughout. EKG 11/15/2017: SINUS BRADYCARDIA NONSPECIFIC T-WAVE ABNORMALITY Anesthesia Exam Vital Signs/O2 Sat/Glucose, Most Recent Temp Pulse Resp BP Pulse Ox 98.0 F 86 16 121/66 92 11/15/17 18:26 11/15/17 18:26 11/15/17 18:26 11/15/17 18:26 11/15/17 18:26 Height: 67 in Weight: 93 kg BMI 32 - HEENT Teeth: Edentulous Denture Type: Upper: Complete Oral Opening: Greater than 3 - [employer] LOC: Oriented - Cardiac Rhythm: Regular - Pulmonary Breath Sounds: bilateral Rhonchi Anesthesia Assess/Plan ASA Score: 4 Modified Jonah Scale for Level of Consciousness: Cooperative, oriented, and tranquil Anesthetic Plan: General, Regional (For post operative pain) Autologous Blood: Yes (Possible) Monitoring Plan: Standard Monitors, A-Line (Possible) Recovery Plan: PACU Anes Supervising Prov Stmt: I have participated in the evaluation of this patient. Patient was scheduled for outpatient surgery at the [facility] today 11/15. Potassium was found to be low. Patient is admitted for correction of hypokalemia. Patient informed and consented. Risks, benefits, and alternatives discussed. Patient wishes to proceed.
[2017-11-15] MEDS: Ondansetron 4 MG/2 ML VIAL IVP PRN (20:56)
[2017-11-15] MEDS: *HR* FentaNYL (PF) 100 MCG/2 ML VIAL IVP PRN (20:56)
[2017-11-15] MEDS: Potassium Effervescent 25 MEQ TABLET.EFF PO SCH (22:05)
[2017-11-15] MEDS: *HR* OxyCODONE/APAP 7.5/325 TABLET PO PRN (23:15)
[2017-11-15] MEDS: FLUoxetine 20 MG CAPSULE PO SCH (23:15)
[2017-11-15] MEDS: valACYclovir 500 MG TABLET PO SCH (23:15)
[2017-11-16 04:38] LABS: Basophils # 0.1 K/mcL (0.0-0.2); Basophils % 0.5 %; Eosinophils # 1.5 K/mcL (0.0-0.6); Eosinophils % 13.7 %; Hematocrit 28.6 % (35.3-44.9); Immature Granulocytes % 0.5 % (0-4); Lymphocytes # 4.9 K/mcL (0.6-4.6); Lymphocytes % 43.7 %; Mean Corpuscular HGB Conc 31.5 g/dL (31.6-35.5); Mean Corpuscular Hemoglobin 27.5 pg (28.0-33.3); Mean Corpuscular Volume 87.5 fL (83.0-100.0); Mean Platelet Volume 11.3 fL (9.4-12.4); Monocytes # 1.4 K/mcL (0.0-1.3); Neutrophils # 3.3 K/mcL (1.6-8.9); Nucleated Red Blood Cells 0.4 /100 WBC (0); Platelet Count 453 K/mcL (140-400); Red Blood Count 3.27 M/mcL (3.82-4.97); Red Cell Distribution Width 19.5 % (11.5-14.5); Segmented Neutrophils % 29.6 %
[2017-11-16 05:02] LABS: BUN/Creatinine Ratio 19 (6-26); Blood Urea Nitrogen 11 mg/dL (8-23); Calcium 7.9 mg/dL (8.6-10.3); Carbon Dioxide 31 mEq/L (23-29); Chloride 103 mEq/L (98-107); Glucose 95 mg/dL (70-105); Osmolality,Calculated 291 (280-300); Potassium 3.2 mEq/L (3.5-5.1); Sodium 141 mEq/L (136-145); eGFR For African Americans > 60 (> 60); eGFR For Non-African Americans > 60 (> 60)
[2017-11-16] MEDS: *HR* Heparin 5,000 UNIT/ML VIAL SQ SCH ×2 (06:00→18:07)
[2017-11-16] MEDS: *HR* OxyCODONE/APAP 7.5/325 TABLET PO PRN ×3 (06:01→18:06)
[2017-11-16] MEDS: Ondansetron 4 MG/2 ML VIAL IVP PRN ×3 (06:01→18:07)
[2017-11-16] MEDS: *HR* FentaNYL (PF) 100 MCG/2 ML VIAL IVP PRN ×3 (08:25→23:13)
[2017-11-16] MEDS: Potassium Effervescent 25 MEQ TABLET.EFF PO SCH (08:25)
[2017-11-16] MEDS: Multivit/Ca/Min/Fe/FA 1 TAB TABLET PO SCH (08:25)
[2017-11-16] MEDS: Cholecalciferol (D-3) 1,000 UNIT TABLET PO SCH (08:25)
[2017-11-16] MEDS ORDERED: valACYclovir 500 MG TABLET PO SCH (09:00)
[2017-11-16] MEDS ORDERED: FLUoxetine 20 MG CAPSULE PO SCH (09:00)
[2017-11-16] MEDS ORDERED: Benzonatate 100 MG CAPSULE PO PRN (11:54)
--- NOTE | 2017-11-16 14:20 | Internal Med Progress Note ---
Date of Encounter: 11/16/17 Time of Encounter: 14:14 - Assessment and plan (1) Fracture of humerus, proximal, right, closed Current Visit: Yes Status: Acute Assessment and plan: Ms. Izaguirre is a 62 year old female presented to [facility] for surgery for right proximal humerus ORIF with Dr. Carlson. Upon preop work up she admitted to numerous falls over the past week, on one occasion hitting her head. She states this was the fall that lead to her right arm fracture. She was found to be hypokalemic and was transferred to ED bed for evaluation. Patient stated she was otherwise doing well with no changes to extremities. Patient resting comfortably in ED bed eating lunch. She is alert and oriented x 3. She has right arm in slingshot as directed. ROM right wrist and hand intact. Neurovascularly intact. Right proximal humerus fracture plan for surgery for Saturday so long as patient is stabilized medically and cleared for surgery at that time. NO SHOULDER MOTION to RUE Continue in sling. NWB to RUE. Ice and pain medication Qualifiers: Encounter type: initial encounter Fracture alignment: nondisplaced Qualified Code(s): S42.294A - Other nondisplaced fracture of upper end of right humerus, initial encounter for closed fracture (2) Hypokalemia Current Visit: Yes Status: Acute Assessment and plan: Monitored and replaced Patient on monitor (3) Hypocalcemia Current Visit: Yes Status: Acute Assessment and plan: Check an ionized calcium (4) Anxiety and depression Current Visit: Yes Status: Chronic Assessment and plan: Continue home Prozac and propranolol (5) Risk for falls Current Visit: Yes Status: Acute Assessment and plan: Fall precautions (6) Syncope Current Visit: Yes Status: Acute Assessment and plan: Bilateral carotid arteries have minimal plaque throughout No acute intercranial abnormality on CT of the head Check orthostatic blood pressures Qualifiers: Syncope type: unspecified Qualified Code(s): R55 - Syncope and collapse - Subjective Interval history: Patient is lying in bed. She states her pain is controlled. She states that she has a poor appetite and sleeps poorly. She states she is pretty sore but denies chest pain, shortness of breath, fever, chills, abdominal pain or changes in bowel or bladder. She states she is to have surgery on Saturday - Constitutional Vitals: Temp Pulse Resp BP Pulse Ox 98.6 F 80 17 132/72 94 11/16/17 11:06 11/16/17 11:06 11/16/17 11:06 11/16/17 11:06 11/16/17 11:06 General appearance: Present: cooperative, A&O X 3, pleasant, no acute distress, answers questions appropriately - Head Head exam: Present: atraumatic, normocephalic - Eye Eye exam: Present: PERRL, conjuntiva pink, sclera anicteric Pupils: Present: PERRL - Neck Neck exam general surgery: Present: supple, trachea midline. Absent: lymphadenopathy - Respiratory Respiratory exam: Present: CTAB. Absent: accessory muscle use, rales, rhonchi, wheezes - Cardiovascular Cardiovascular exam: Present: RRR, +S1, +S2. Absent: diastolic murmur, gallop, rubs, systolic murmur - GI/Abdominal GI/Abdominal exam: Present: normal bowel sounds, soft, no peritoneal signs. Absent: distended, tenderness - Extremities Exam Extremities exam: Present: warm, radial pulses palpable and symmetrical. Absent : calf tenderness, cyanotic, pedal edema - Expanded Upper Extremities Exam Upper Arm exam: Present: deformity, ecchymosis, swelling, tenderness. Absent: full ROM Vascular exam: Present: normal capillary refill, radial pulse right. Absent: vascular compromise - Neurological Exam Neurological exam: Present: alert, CN II-XII intact, oriented X3, no focal deficits. Absent: strengths equal and symetr throughout, pronater drift, facial droop, speech deficit - Skin Skin exam: Present: dry, normal color, warm Internal Medicine: Result - Labs CBC & Chem 7: 11/16/17 03:33 11/16/17 03:33 Labs: Short CBC 11/16/17 Range/Units 03:33 WBC 11.3 H (4.3-11.1) K/mcL Hgb 9.0 L (11.5-15.4) g/dL Hct 28.6 L (35.3-44.9) % Plt Count 453 H (140-400) K/mcL Neutrophils # 3.3 (1.6-8.9) K/mcL BMP 11/16/17 03:33 Sodium 141 Potassium 3.2 L Chloride 103 Carbon Dioxide 31 H BUN 11 Creatinine 0.57 L Glucose 95 Calcium 7.9 L Urine 11/15/17 Range/Units 17:15 Urine Color Yellow (Yellow) Urine Clarity Clear (Clear) Urine pH 6.5 (5.0-8.0) pH Units Ur Specific [place] 1.015 (1.010-1.025) Urine Protein Negative (Neg-Trace) mg/dL Urine Glucose (UA) Normal (Normal) mg/dL - Impressions Impressions Echocardiogram 11/15/17 13:40 Impressions: LVEF 50-55%. No pulmonary hypertension. No significant valvular dysfunction. Left Ventricular Wall Motion: Rest Echo Findings All wall segments showed normal motion. Findings: Study Quality * Technically adequate exam. Right Ventricle * Normal right ventricular structure and function. Left Atrium * Normal left atrial size. Right Atrium * Normal right atrial size. Mitral Valve * Normal mitral valve structure and function. Interatrial Septum * Interatrial septum not well evaluated. Aorta * Normally sized aortic root. Pericardium * There is a trivial pericardial effusion present. Tricuspid Valve * Trace tricuspid regurgitation. * No tricuspid stenosis. * Estimated RVSP is 22 mmHg. * No pulmonary hypertension. IVC * The IVC is not well evaluated. Pulmonic Valve * No pulmonic stenosis. * No pulmonic regurgitation. * Pulmonic valve is not well visualized. Aortic Valve * No aortic regurgitation. * No aortic stenosis. * Aortic valve not well visualized. Left Ventricle * Normal LV chamber size, wall thickness and function. * Normal left ventricular diastolic function. * No segmental dysfunction. * LVEF 50-55%. ECG Findings * Normal sinus rhythm. Consult Discharge Plan - Plan Referrals: Karolina Melo [Primary Care Provider] -
[2017-11-16 15:07] LABS: VBG Ionized Calcium 1.03 mmol/L (1.15-1.35)
[2017-11-16] MEDS: valACYclovir 500 MG TABLET PO SCH (21:08)
[2017-11-16] MEDS: FLUoxetine 20 MG CAPSULE PO SCH (21:08)
[2017-11-17] MEDS: *HR* OxyCODONE/APAP 7.5/325 TABLET PO PRN ×4 (00:38→20:48)
[2017-11-17 04:29] LABS: Hematocrit 28.7 % (35.3-44.9); Mean Corpuscular HGB Conc 31.4 g/dL (31.6-35.5); Mean Corpuscular Hemoglobin 27.3 pg (28.0-33.3); Platelet Count 471 K/mcL (140-400); Red Cell Distribution Width 19.9 % (11.5-14.5)
[2017-11-17] MEDS: *HR* Heparin 5,000 UNIT/ML VIAL SQ SCH ×2 (05:55→17:25)
[2017-11-17 06:02] LABS: BUN/Creatinine Ratio 11 (6-26); Blood Urea Nitrogen 7 mg/dL (8-23); Calcium 8.2 mg/dL (8.6-10.3); Carbon Dioxide 28 mEq/L (23-29); Chloride 106 mEq/L (98-107); Glucose 101 mg/dL (70-105); Osmolality,Calculated 288 (280-300); Sodium 140 mEq/L (136-145); eGFR For African Americans > 60 (> 60); eGFR For Non-African Americans > 60 (> 60)
[2017-11-17] MEDS: *HR* FentaNYL (PF) 100 MCG/2 ML VIAL IVP PRN ×4 (06:36→22:39)
[2017-11-17] MEDS: Cholecalciferol (D-3) 1,000 UNIT TABLET PO SCH (08:23)
[2017-11-17] MEDS: Multivit/Ca/Min/Fe/FA 1 TAB TABLET PO SCH (08:23)
[2017-11-17] MEDS ORDERED: Lactulose Oral Soln 20 GM/30 ML UDC PO ONE (08:54)
--- NOTE | 2017-11-17 09:10 | Internal Med Progress Note ---
Date of Encounter: 11/17/17 Time of Encounter: 09:08 - Assessment and plan (1) Hypokalemia Current Visit: Yes Status: Acute Assessment and plan: Monitored and replaced Patient on monitor (2) Hypocalcemia Current Visit: Yes Status: Acute Assessment and plan: ionized calcium reviewed, replace and recheck (3) Anxiety and depression Current Visit: Yes Status: Chronic Assessment and plan: Controlled with home Prozac and propranolol (4) Risk for falls Current Visit: Yes Status: Acute Assessment and plan: Continue Fall precautions (5) Syncope Current Visit: Yes Status: Acute Assessment and plan: Bilateral carotid arteries have minimal plaque throughout No acute intercranial abnormality on CT of the head orthostatic blood pressures reviewed and not orthostatic Qualifiers: Syncope type: unspecified Qualified Code(s): R55 - Syncope and collapse (6) Preoperative clearance Current Visit: Yes Status: Acute Assessment and plan: Potassium normalized calcium being replaced and will recheck Patient will be ready for surgery in am - Subjective Interval history: Patient is lying in bed. She states her pain is controlled. She states that she has a poor appetite and sleeps poorly. She states she is sore but denies chest pain, shortness of breath, fever, chills, abdominal pain. She states she is to have surgery on Saturday. She has no personal cardiac history. She is slight constipated and will accept treatment - Constitutional Vitals: Temp Pulse Resp BP Pulse Ox 97.7 F 90 16 155/81 93 11/17/17 07:18 11/17/17 07:18 11/17/17 07:18 11/17/17 07:18 11/17/17 07:18 General appearance: Present: cooperative, A&O X 3, pleasant, no acute distress, answers questions appropriately - Head Head exam: Present: atraumatic, normocephalic - Eye Eye exam: Present: PERRL, conjuntiva pink, sclera anicteric Pupils: Present: PERRL - Neck Neck exam general surgery: Present: supple, trachea midline. Absent: lymphadenopathy - Respiratory Respiratory exam: Present: CTAB. Absent: accessory muscle use, rales, rhonchi, wheezes - Cardiovascular Cardiovascular exam: Present: RRR, +S1, +S2. Absent: diastolic murmur, gallop, rubs, systolic murmur - GI/Abdominal GI/Abdominal exam: Present: normal bowel sounds, soft, no peritoneal signs. Absent: distended, tenderness - Extremities Exam Extremities exam: Present: warm, radial pulses palpable and symmetrical. Absent : calf tenderness, cyanotic, pedal edema Additional comments: CMS checks to right extremity intact. Immobilizer in place to right extremity. - Neurological Exam Neurological exam: Present: alert, CN II-XII intact, oriented X3, no focal deficits. Absent: pronater drift, facial droop, speech deficit - Skin Skin exam: Present: dry, intact, normal color, warm Internal Medicine: Result - Labs CBC & Chem 7: 11/17/17 03:35 11/17/17 03:35 Labs: Short CBC 11/17/17 Range/Units 03:35 WBC 12.2 H (4.3-11.1) K/mcL Hgb 9.0 L (11.5-15.4) g/dL Hct 28.7 L (35.3-44.9) % Plt Count 471 H (140-400) K/mcL [facility] 11/16/17 11/17/17 14:55 03:35 Sodium 140 Potassium 3.8 4.0 Chloride 106 Carbon Dioxide 28 BUN 7 L Creatinine 0.66 Glucose 101 Calcium 8.2 L Consult Discharge Plan - Plan Referrals: Karolina Melo [Primary Care Provider] -
[2017-11-17] MEDS: Ondansetron 4 MG/2 ML VIAL IVP PRN (12:55)
[2017-11-17] MEDS: FLUoxetine 20 MG CAPSULE PO SCH (20:20)
[2017-11-17] MEDS: valACYclovir 500 MG TABLET PO SCH (20:20)
[2017-11-18] MEDS: *HR* FentaNYL (PF) 100 MCG/2 ML VIAL IVP PRN ×3 (02:52→13:03)
[2017-11-18 05:01] LABS: Hematocrit 38.3 % (35.3-44.9); Hemoglobin 11.5 g/dL (11.5-15.4); Mean Corpuscular Hemoglobin 27.7 pg (28.0-33.3); Mean Corpuscular Volume 92.3 fL (83.0-100.0); Mean Platelet Volume 11.9 fL (9.4-12.4); Platelet Count 383 K/mcL (140-400); Red Blood Count 4.15 M/mcL (3.82-4.97); Red Cell Distribution Width 21.3 % (11.5-14.5)
[2017-11-18 05:26] LABS: BUN/Creatinine Ratio 7 (6-26); Blood Urea Nitrogen 5 mg/dL (8-23); Calcium 8.9 mg/dL (8.6-10.3); Carbon Dioxide 25 mEq/L (23-29); Chloride 104 mEq/L (98-107); Glucose 100 mg/dL (70-105); Osmolality,Calculated 285 (280-300); Potassium 4.8 mEq/L (3.5-5.1); Sodium 139 mEq/L (136-145); eGFR For African Americans > 60 (> 60); eGFR For Non-African Americans > 60 (> 60)
[2017-11-18] MEDS: *HR* Heparin 5,000 UNIT/ML VIAL SQ SCH (05:43)
[2017-11-18] MEDS ORDERED: 0.9 % Sodium Chloride w KCl 20 MEQ/1,000 ML MLS IVC SCH (08:00)
--- NOTE | 2017-11-18 08:26 | Orthopedics Progress Note ---
Date of Encounter: 11/18/17 Time of Encounter: 08:24 - Assessment and Plan (1) Humerus fracture Current Visit: No Status: Acute Patient evaluated on Saturday for Right Proximal humerus fracture. Ultimately admitted on Saturday for medical optimization due to hypokalemia. Hypokalemia improved, cleared for OR today. scheduled for surgery today - Right Proximal humerus ORIF, new xrays unchanged. Right Upper extremity: Minimal swelling, no erythema, no ecchymosis. Skin warm to touch, no obvious lesions noted. Brace intact. ROM limited, hand and wrist ROM intact. NV intact distally. Pain controlled, plan to taper to oral medications. ICE and elevate as tolerated. No Shoulder motion, elbow ROM ok. Hematology Technician strengthening. Consent discussed and reviewed with patient, risks versus benefits reviewed. Patient signed consent for surgery today. Will plan to go home tonight or tomorrow AM. Pain medication discussed in depth , printed. f/up in office next week, appt will be faxed to the floor - [id number]. Qualifiers: Encounter type: subsequent encounter Humerus Location: proximal Fracture type: closed Fracture morphology: unspecified fracture morphology Laterality : right Fracture healing: with routine healing Qualified Code(s): S42.201D - Unspecified fracture of upper end of right humerus, subsequent encounter for fracture with routine healing (2) Risk for falls Current Visit: Yes Status: Acute Subjective Principal diagnosis: Right Proximal Humerus Fracture Interval history: Patient evaluated on Saturday for Right Proximal humerus fracture, scheduled for surgery today. Ultimately admitted on Saturday for medical optimization due to hypokalemia. Hypokalemia improved, cleared for OR today. Right Upper extremity: Minimal swelling, no erythema, no ecchymosis. Skin warm to touch, no obvious lesions noted. Brace intact. ROM limited, hand and wrist ROM intact. NV intact distally. Pain controlled, plan to taper to oral medications. Objective Vital signs: Vital Signs Temp Pulse Resp BP Pulse Ox 11/18/17 07:14 99.5 F 95 20 135/84 95 11/18/17 02:56 99.3 F 100 20 135/81 93 11/17/17 23:18 99.3 F 106 16 131/80 94 11/17/17 20:41 98 11/17/17 19:32 99.7 F H 102 16 121/79 97 11/17/17 15:41 98.6 F 97 16 140/88 96 11/17/17 11:28 99.1 F 92 16 158/83 92 Intake and Output 11/17/17 11/18/17 11/18/17 23:59 07:59 15:59 Output Total 1500 / 1500 1200 / 1200 600 / 600 Balance -1500 / -1500 -1200 / -1200 -600 / -600 Output: Urine 1500 / 1500 1200 / 1200 600 / 600 Other: Stool Size Large Stool Consistency soft Stool Characteristics Normal for Patient Stool Color Brown Weight 98.293 kg Patient Weight 11/18/17 23:59 Weight 98.293 kg - Labs CBC & BMP: 11/18/17 03:35 11/18/17 03:35 Labs: Abnormal lab results WBC 13.8 K/mcL (4.3-11.1) H 11/18/17 03:35 MCH 27.7 pg (28.0-33.3) L 11/18/17 03:35 MCHC 30.0 g/dL (31.6-35.5) L 11/18/17 03:35 RDW 21.3 % (11.5-14.5) H 11/18/17 03:35 Lymphocytes # 4.9 K/mcL (0.6-4.6) H 11/16/17 03:33 Monocytes # 1.4 K/mcL (0.0-1.3) H 11/16/17 03:33 Eosinophils # 1.5 K/mcL (0.0-0.6) H 11/16/17 03:33 Nucleated RBCs/100 WBC 0.4 /100 WBC (0) H 11/16/17 03:33 BUN 5 mg/dL (8-23) L 11/18/17 03:35 Venous Ioniz Calcium 1.03 mmol/L (1.15-1.35) L 11/16/17 15:05 Consult Discharge Plan - Plan Referrals: Karolina Melo [Primary Care Provider] - Prescriptions: OxyCODONE Immed Rel [Roxicodone 5 MG] 5 mg PO Q6HR PRN 7 Days #28 tablet PRN Reason: Severe Pain
[2017-11-18] MEDS: Cholecalciferol (D-3) 1,000 UNIT TABLET PO SCH (08:29)
[2017-11-18] MEDS: Multivit/Ca/Min/Fe/FA 1 TAB TABLET PO SCH (08:29)
[2017-11-18 14:28] LABS: Hematocrit 33.4 % (35.3-44.9); Hemoglobin 10.6 g/dL (11.5-15.4)
--- NOTE | 2017-11-18 15:27 | Internal Med Progress Note ---
Date of Encounter: 11/18/17 Time of Encounter: 15:25 - Assessment and plan (1) Hypokalemia Current Visit: Yes Status: Acute Assessment and plan: Monitored and replaced (2) Hypocalcemia Current Visit: Yes Status: Acute Assessment and plan: ionized calcium reviewed, replaced and rechecked (3) Anxiety and depression Current Visit: Yes Status: Chronic Assessment and plan: Controlled with Prozac and propranolol (4) Risk for falls Current Visit: Yes Status: Acute Assessment and plan: Continue Fall precautions Patient has a history of chronic narcotic use (5) Syncope Current Visit: Yes Status: Acute Assessment and plan: Bilateral carotid arteries have minimal plaque throughout with no acute intercranial abnormality on CT of the head orthostatic blood pressures reviewed and she is not orthostatic Qualifiers: Syncope type: unspecified Qualified Code(s): R55 - Syncope and collapse (6) Preoperative clearance Current Visit: Yes Status: Acute Assessment and plan: Potassium normalized calcium being replaced and normalized Patient ready for surgery urine positive for aeroccus, would not treat as patient asymptomatic (7) Leukocytosis Current Visit: Yes Status: Acute Assessment and plan: Add incentive spirometer and patient out of bed Likely related to stress response of fracture Monitor Qualifiers: Qualified Code(s): D72.829 - Elevated white blood cell count, unspecified (8) Humerus fracture Current Visit: No Status: Acute Assessment and plan: Patient evaluated on Saturday for right proximal humeral fracture by orthopedic service. Was admitted Saturday for medical optimization due to hypo-kalemia. She has been cleared for the OR today with hypokalemia and hypercalcemia resolved. Management as per orthostatic She is to be transferred to the orthopedic floor postoperatively. PT OT and social service consults postoperatively. Pain is controlled and plan by orthopedic to taper to oral medications. Ice and elevation as tolerated No shoulder motion elbow range of motion okay. Plan is to go home either tonight or tomorrow depending on when her surgery is completed. Not to be started until 4 PM so doubt if patient will go home until tomorrow Qualifiers: Encounter type: subsequent encounter Humerus Location: proximal Fracture type: closed Fracture morphology: unspecified fracture morphology Laterality : right Fracture healing: with routine healing Qualified Code(s): S42.201D - Unspecified fracture of upper end of right humerus, subsequent encounter for fracture with routine healing - Subjective Interval history: Patient is lying in bed. She states her pain is controlled. She states that she has a poor appetite and sleeps poorly. She states she is sore but denies chest pain, shortness of breath, fever, chills, abdominal pain. - Constitutional Vitals: Temp Pulse Resp BP Pulse Ox 100.1 F H 106 20 153/89 92 11/18/17 11:34 11/18/17 11:34 11/18/17 11:34 11/18/17 11:34 11/18/17 11:34 General appearance: Present: cooperative, A&O X 3, pleasant, no acute distress, answers questions appropriately - Head Head exam: Present: atraumatic, normocephalic - Eye Eye exam: Present: PERRL, conjuntiva pink, sclera anicteric Pupils: Present: PERRL - Neck Neck exam general surgery: Present: supple, trachea midline. Absent: lymphadenopathy - Respiratory Respiratory exam: Present: CTAB. Absent: accessory muscle use, rales, rhonchi, wheezes - Cardiovascular Cardiovascular exam: Present: RRR, +S1, +S2. Absent: diastolic murmur, gallop, rubs, systolic murmur - GI/Abdominal GI/Abdominal exam: Present: normal bowel sounds, soft, no peritoneal signs. Absent: distended, tenderness - Extremities Exam Extremities exam: Present: warm, radial pulses palpable and symmetrical. Absent : calf tenderness, cyanotic, pedal edema Additional comments: [facility] checks intact to right upper extremity status post right humeral fracture. She is for the OR today. There is minimal swelling no ischemia no ecchymosis. Immobilizer brace is intact - Neurological Exam Neurological exam: Present: alert, CN II-XII intact, oriented X3, no focal deficits. Absent: pronater drift, facial droop, speech deficit - Skin Skin exam: Present: dry, normal color, warm Internal Medicine: Result - Labs CBC & Chem 7: 11/18/17 13:50 11/18/17 03:35 Labs: Short CBC 11/18/17 11/18/17 Range/Units 03:35 13:50 WBC 13.8 H (4.3-11.1) K/mcL Hgb 11.5 D 10.6 L (11.5-15.4) g/dL Hct 38.3 33.4 L (35.3-44.9) % Plt Count 383 (140-400) K/mcL BMP 11/18/17 03:35 Sodium 139 Potassium 4.8 Chloride 104 Carbon Dioxide 25 BUN 5 L Creatinine 0.70 Glucose 100 Calcium 8.9 - Impressions Impressions Shoulder X-Ray 11/18/17 06:52 IMPRESSION: Comminuted right proximal humerus fracture with posterior displacement of the humeral head. Findings are similar to the prior exam. D/ / 11/18/2017 08:10:22 [facility] Rouse MD [facility] Interpreting Provider: Jake Rouse MD Consult Discharge Plan - Plan Referrals: Karolina Melo [Primary Care Provider] - Prescriptions: OxyCODONE Immed Rel [Roxicodone 5 MG] 5 mg PO Q6HR PRN 7 Days #28 tablet PRN Reason: Severe Pain
[2017-11-18] MEDS ORDERED: *HR* FentaNYL (PF) 100 MCG/2 ML VIAL IVP ONE (15:47)
[2017-11-18] MEDS ORDERED: *HR* Midazolam HCl 2 MG/2 ML VIAL ONE (16:20)
[2017-11-18] MEDS ORDERED: *HR* Propofol 200 MG/20 ML VIAL IVP ONE (16:20)
[2017-11-18] MEDS ORDERED: *HR* FentaNYL (PF) 100 MCG/2 ML VIAL ONE ×2 (16:20→16:49)
[2017-11-18] MEDS ORDERED: ROPIVACAINE HCL/PF 0.5% 30 ML VIAL ONE (16:21)
[2017-11-18] MEDS ORDERED: Ethanol\\Acetic Acid\\Na Ace\\Ben 1,000 ML IRRIG.SOLN IR ONE (16:22)
--- NOTE | 2017-11-18 16:45 | Anesthesia Procedures ---
Date of Encounter: 11/18/17 Time of Encounter: 16:30 Procedures: Anesthesia - Nerve Block Procedure Date: 11/18/17 Time: 16:30 Pre-op Diagnosis: Fracture Rt Humerus Surgical Procedure: ORIF Rt Humerus Checklist: Correct Patient Identifier Correct side: Right Blood Thinner: No Monitor Applied: EKG, BP, Pulse Oximetry Supplemental Oxygen via Nasal Cannula (L/min): 2 Sedation: Versed (mg): 2 Sedation: Fentanyl (mcg): 100 Indication: Post Op Analgesia Pre-op Neuro Deficits: No Block Type: Supraclavicular Catheter placed: No Depth at skin (cm): 2 Sterile Technique: Yes Ultrasound used: Yes Anatomy identified: Yes Visual spread of Local: Yes Neuro Stimulation: No Blood on Needle Aspiration: No Smooth Injection of Local: Yes Pain with Injection of Local: No Prep: Chlorhexadine Needle: 22 x 50 mm Stimuplex Local: Ropivacaine (0.5%), Other (Dexamethasone 12.5 mg) Volume (cc): 30 Number of Attempts: 1 Complications: None/effective block Vitals: Vital Signs/O2 Sat/Glucose, Most Current Temp Pulse Resp BP Pulse Ox 11/18/17 16:42 100 15 125/75 97 11/18/17 16:09 107 15 133/71 95 11/18/17 15:51 99.6 F 102 16 130/81 93
[2017-11-18] MEDS ORDERED: Lidocaine -MPF 2% 2 ML VIAL ONE (16:49)
[2017-11-18] MEDS ORDERED: Ondansetron 4 MG/2 ML VIAL ONE (16:49)
[2017-11-18] MEDS ORDERED: *HR* Succinylcholine 200 MG/10 ML VIAL IVP ONE (16:49)
[2017-11-18] MEDS ORDERED: Lidocaine -MPF 4% 5 ML AMPUL ONE (16:50)
[2017-11-18] MEDS ORDERED: *HR* PHENYLEPHRINE 1,000 MCG/10 ML SYRINGE IVP ONE (17:24)
[2017-11-18] MEDS ORDERED: Acetaminophen IV 1,000 MG/100 ML INFUS..BTL IVPB ONE (17:35)
--- NOTE | 2017-11-18 17:35 | Orthopedic Operative Note ---
Date of procedure: 11/18/17 Pre-op diagnosis: right proximal humerus fracture displaced Post-op diagnosis: same Procedure: Procedure: Right open reduction internal fixation proximal humerus Estimated blood loss: 25 cc Hardware: 3 hole Synthes proximal humeral locking plate, 1 3.5 cortical screws , 6 3.5 Locking screws Procedural Notes: Displaced right proximal humerus fracture Operative procedure: The patient was brought to the operating room and placed on the operating room table. After general anesthesia was administered the operative arm was prepped and draped in the sterile surgical fashion The patient received IV antibiotics prior to skin incision. A standard extended deltopectoral approach was made to the humerus, the incision is made to the skin and subcutaneous tissue. Hemostasis was obtained with Bovie cautery. Using careful blunt dissection the deltopectoral interval was developed, exposing the fracture site. Using fluoroscopic assistance a 3- hole Synthes proximal humeral locking plate was approximated to the anterior lateral surface was fixed distally in compression with one 3.5 cortical screw. It was fixed proximally with 4 3.5 locking screws. Fixation was completed with distal fixation with 2 3.5 locking screws. Position of the hardware as well as fracture reduction found to be acceptable on fluoroscopic exam evaluation. The wound was irrigated the deltopectoral closed with a running #1 PDS suture case tissues irrigated and closed deep with 0 PDS suture superficially with 0 PDS suture was closed with Dermabond patient was sterile dressing and brace. The patient was extubated, and then transferred to the recovery room in stable condition. Anesthesia: GETA Surgeon: Curtis Carlson Was there an head start assistant teacher present: Yes Flask Fitter: Estrella Hopson Estimated blood loss (cc): 25 Condition: stable Disposition: PACU
[2017-11-18] MEDS ORDERED: Sennosides 8.6 MG TABLET PO PRN (19:21)
[2017-11-18] MEDS ORDERED: *HR* FentaNYL (PF) 100 MCG/2 ML VIAL IVP PRN (19:21)
[2017-11-18] MEDS ORDERED: Naloxone 0.4 MG/ML INJ IVP PRN ×2 (19:21)
[2017-11-18] MEDS ORDERED: Temazepam 15 MG CAPSULE PO PRN (19:21)
[2017-11-18] MEDS ORDERED: Ringers Solution, Lactated 1,000 ML IVC SCH (19:21)
[2017-11-18] MEDS ORDERED: Ondansetron 4 MG/2 ML VIAL IVP PRN ×2 (19:21)
[2017-11-18] MEDS ORDERED: MOM Conc 10 ML UD.LIQ PO PRN (19:21)
[2017-11-18] MEDS ORDERED: Benzonatate 100 MG CAPSULE PO PRN (19:21)
[2017-11-18] MEDS: valACYclovir 500 MG TABLET PO SCH (22:07)
[2017-11-18] MEDS: FLUoxetine 20 MG CAPSULE PO SCH (22:07)
[2017-11-18] MEDS: 0.9 % Sodium Chloride w KCl 20 MEQ/1,000 ML MLS IVC SCH (22:46)
[2017-11-19] MEDS: CeFAZolin Premix DUPLEX 2,000 MG/50 ML BAG IVPB SCH ×2 (00:56→08:20)
[2017-11-19] MEDS: *HR* Heparin 5,000 UNIT/ML VIAL SQ SCH ×2 (05:47→18:07)
[2017-11-19 07:36] LABS: Hematocrit 36.7 % (35.3-44.9); Hemoglobin 11.5 g/dL (11.5-15.4)
[2017-11-19] MEDS: Multivit/Ca/Min/Fe/FA 1 TAB TABLET PO SCH (08:21)
[2017-11-19] MEDS: Cholecalciferol (D-3) 1,000 UNIT TABLET PO SCH (08:21)
[2017-11-19] MEDS: *HR* OxyCODONE/APAP 7.5/325 TABLET PO PRN ×3 (10:28→22:29)
[2017-11-19] MEDS: cephALEXin 500 MG CAPSULE PO SCH ×2 (12:48→16:00)
--- NOTE | 2017-11-19 15:12 | Internal Med Progress Note ---
Date of Encounter: 11/19/17 Time of Encounter: 18:53 - Assessment and plan (1) Syncope Current Visit: Yes Status: Acute Assessment and plan: Bilateral carotid arteries have minimal plaque throughout with no acute intercranial abnormality on CT of the head orthostatic blood pressures reviewed and she is not orthostatic Patient states this has happened multiple times Last two occurrances she has no preceding or post syncopal symptoms Neurology consulted, EEG ordered. If Neurology workup negative tomorrow, likely patient can be discharged. Qualifiers: Syncope type: unspecified Qualified Code(s): R55 - Syncope and collapse (2) Humerus fracture Current Visit: No Status: Acute Assessment and plan: Patient evaluated on Saturday for right proximal humeral fracture by orthopedic service. Was admitted Saturday for medical optimization due to hypo-kalemia. Status post right open reduction internal fixation of proximal humerus 11/18. Doing well Stable Qualifiers: Encounter type: subsequent encounter Humerus Location: proximal Fracture type: closed Fracture morphology: unspecified fracture morphology Laterality : right Fracture healing: with routine healing Qualified Code(s): S42.201D - Unspecified fracture of upper end of right humerus, subsequent encounter for fracture with routine healing (3) Hypokalemia Current Visit: Yes Status: Acute Assessment and plan: Monitored and replaced (4) Hypocalcemia Current Visit: Yes Status: Acute Assessment and plan: ionized calcium reviewed, replaced and rechecked (5) Leukocytosis Current Visit: Yes Status: Acute Assessment and plan: Add incentive spirometer and patient out of bed Likely related to stress response of fracture - Since urine + culture will treat for UTI and monitor WBC tomorrow. Qualifiers: Qualified Code(s): D72.829 - Elevated white blood cell count, unspecified (6) Risk for falls Current Visit: Yes Status: Acute Assessment and plan: Continue Fall precautions Patient has a history of chronic narcotic use (7) Anxiety and depression Current Visit: Yes Status: Chronic (8) UTI (urinary tract infection) Current Visit: Yes Status: Acute Assessment and plan: UTI vs asymptomatic bacteruria - Has leukocytosis, thought to be from stress response but certainly could be from UTI - Urine culture showed Aerococcus urinae, will treat with beta lactam Keflex. Qualifiers: Urinary tract infection type: site unspecified Hematuria presence: without hematuria Qualified Code(s): N39.0 - Urinary tract infection, site not specified - Constitutional Vitals: Temp Pulse Resp BP Pulse Ox 98.7 F 92 16 107/62 96 11/19/17 11:33 11/19/17 11:33 11/19/17 11:33 11/19/17 11:33 11/19/17 11:33 General appearance: Present: cooperative, A&O X 3, pleasant, no acute distress, answers questions appropriately Exam: - Head Head exam: Present: atraumatic, normocephalic - Eye Eye exam: Present: PERRL, conjuntiva pink, sclera anicteric Pupils: Present: PERRL - Neck Neck exam general surgery: Present: supple, trachea midline. Absent: lymphadenopathy - Respiratory Respiratory exam: Present: CTAB. Absent: accessory muscle use, rales, rhonchi, wheezes - Cardiovascular Cardiovascular exam: Present: RRR, +S1, +S2. Absent: diastolic murmur, gallop, rubs, systolic murmur - GI/Abdominal GI/Abdominal exam: Present: normal bowel sounds, soft, no peritoneal signs. Absent: distended, tenderness - Extremities Exam Extremities exam: Present: warm, radial pulses palpable and symmetrical. Absent : calf tenderness, cyanotic, pedal edema Additional comments: [facility] checks intact to right upper extremity status post right humeral fracture. She is for the OR today. There is minimal swelling no ischemia no ecchymosis. Immobilizer brace is intact - Neurological Exam Neurological exam: Present: alert, CN II-XII intact, oriented X3, no focal deficits. Absent: pronater drift, facial droop, speech deficit - Skin Skin exam: Present: dry, normal color, warm Internal Medicine: Result - Labs CBC & Chem 7: 11/19/17 07:17 11/18/17 03:35 Labs: Short CBC 11/19/17 Range/Units 07:17 Hgb 11.5 (11.5-15.4) g/dL Hct 36.7 (35.3-44.9) % - Impressions Impressions Shoulder X-Ray 11/18/17 13:54 IMPRESSION: Expected postoperative changes following ORIF of the proximal right humeral fracture. Near anatomic alignment. D/ / Juan J Fletcher / Juan J Fletcher Interpreting Provider: Juan J Fletcher Fluoroscopy 11/18/17 16:32 IMPRESSION: Intraprocedural fluoroscopic spot images as above. See separate procedure report for more information. D/ / Kurt Rock MD / Kurt Rock MD Interpreting Provider: Kurt Rock MD - VTE Documentation of Mechanical Device: Venous foot pump, device Consult Discharge Plan - Plan Referrals: Karolina Melo [Primary Care Provider] - Prescriptions: OxyCODONE Immed Rel [Roxicodone 5 MG] 5 mg PO Q6HR PRN 7 Days #28 tablet PRN Reason: Severe Pain
[2017-11-19] MEDS: Ketorolac 30 MG/ML VIAL IVP SCH ×2 (16:15→22:18)
--- NOTE | 2017-11-19 17:13 | Orthopedics Progress Note ---
Date of Encounter: 11/19/17 Time of Encounter: 17:11 - Assessment and Plan (1) Humerus fracture Status: Inactive Patient evaluated on Saturday for Right Proximal humerus fracture. Ultimately admitted on Saturday for medical optimization due to hypokalemia. Hypokalemia improved, cleared for OR 11/18 POD#1 - Right Proximal humerus ORIF, new xrays unchanged. Right Upper extremity: Minimal swelling, no erythema, no ecchymosis. Skin warm to touch, no obvious lesions noted. Brace intact. ROM limited, hand and wrist ROM intact. NV intact distally. Pain controlled, plan to taper to oral medications - history of narcotic abuse - will plan to keep narcotics to minimal and utilize other means of pain control through NSAIDS, Tylenol, etc. ICE and elevate as tolerated. No Shoulder motion, elbow ROM ok. In Home Baby Sitter strengthening. D/C 11/20/17 after EEG. Pain medication discussed in depth, printed. f/up in office next week, appt will be faxed to the floor - [id number]. Qualifiers: Encounter type: subsequent encounter Humerus Location: proximal Fracture type: closed Fracture morphology: unspecified fracture morphology Laterality : right Fracture healing: with routine healing Qualified Code(s): S42.201D - Unspecified fracture of upper end of right humerus, subsequent encounter for fracture with routine healing (2) Risk for falls Status: Acute Subjective Principal diagnosis: Right Proximal Humerus Fracture Interval history: Patient evaluated on Saturday for Right Proximal humerus fracture, scheduled for surgery today. Ultimately admitted on Saturday for medical optimization due to hypokalemia. Hypokalemia improved. POD#1 Patient A& O x 3. Pain control difficult - continue Oxycodone PO. Afebrile, vitals stable Hospitalist team had ordered neurology consult and EEG recommended. Will get done on 11/20. RUE: Dressing c/d/i - walter in place. Minimal swelling, soft and non tender RUE. No erythema with minimal ecchymosis. ROM limited. Hand automation qa analyst intact. NV intact distally. Objective Vital signs: Vital Signs Temp Pulse Resp BP Pulse Ox 11/19/17 11:33 98.7 F 92 16 107/62 96 11/19/17 06:46 97.7 F 89 16 108/61 96 11/19/17 05:38 98.4 F 71 16 112/76 96 11/18/17 22:54 99.2 F 102 18 128/82 93 11/18/17 21:45 98.6 F 94 16 124/76 94 11/18/17 20:45 98.4 F 95 16 125/78 96 11/18/17 19:45 98.6 F 107 16 142/69 97 11/18/17 19:15 98.9 F 105 16 126/81 2 11/18/17 18:45 99.3 F 103 16 134/82 97 11/18/17 18:33 98.2 F 103 16 135/90 96 11/18/17 18:23 98.2 F 99 20 141/71 99 11/18/17 18:13 102 20 138/70 97 11/18/17 18:03 101 16 106/83 96 11/18/17 17:53 98.4 F 94 16 105/54 100 Intake and Output 11/19/17 11/19/17 11/19/17 07:59 15:59 23:59 Intake Total 50 / 50 240 / 240 Output Total 400 / 400 Balance -350 / -350 240 / 240 Intake: IV Fluids 50 / 50 Ancef Premix DUPLEX 2,000 mg In 50 / 50 50 ml @ 100 mls/hr IVPB Q8HR [facility] Rx#:[id number] Oral 0 / 0 240 / 240 Output: Urine 400 / 400 Other: Meal Breakfast Percent of Meal Consumed 95% # Voids 1 Incision: clean and dry - Labs CBC & BMP: 11/20/17 14:53 11/18/17 03:35 Labs: Abnormal lab results WBC 13.8 K/mcL (4.3-11.1) H 11/18/17 03:35 MCH 27.7 pg (28.0-33.3) L 11/18/17 03:35 MCHC 30.0 g/dL (31.6-35.5) L 11/18/17 03:35 RDW 21.3 % (11.5-14.5) H 11/18/17 03:35 Lymphocytes # 4.9 K/mcL (0.6-4.6) H 11/16/17 03:33 Monocytes # 1.4 K/mcL (0.0-1.3) H 11/16/17 03:33 Eosinophils # 1.5 K/mcL (0.0-0.6) H 11/16/17 03:33 Nucleated RBCs/100 WBC 0.4 /100 WBC (0) H 11/16/17 03:33 BUN 5 mg/dL (8-23) L 11/18/17 03:35 Venous Ioniz Calcium 1.03 mmol/L (1.15-1.35) L 11/16/17 15:05 - VTE Documentation of Mechanical Device: Venous foot pump, device Consult Discharge Plan - Plan Instructions: Oxycodone, Rapid Release (By mouth) Additional Instructions: Discharge Instructions: Total Shoulder Please call [facility] ([phone]), your Primary Care Physician, or report to the Emergency Room if you have any of the following symptoms: Nausea, vomiting, fever greater that 101.5, swelling, chest pain, shortness of breath, increased pain/redness/drainage/odor for your incision site, numbness/ tingling, or any other concerning symptoms. ACTIVITY: Always keep your arm in the sling. Do not raise your arm away from your body. Do not use your arm to help with getting in or out of bed. No weight bearing permitted. Only perform those exercises given to you by your therapist. MEDICATIONS: Upon discharge resume your home medications. Take all the medications as prescribed. Take a stool softener if taking narcotic pain medications. Stool softeners are only effective if you drink enough fluids. Drink 6-8 glass of water or fluids a day, unless this is not allowed for another health problem. Despite using stool softeners, if you haven't had a bowel movement in 3 days, please switch to a gentle laxative. Gentle laxatives are sold over the counter. You should have a bowel movement within 24 hours, if not call the office. You will be discharged from the hospital with a prescription for pain medication. You are encouraged to decrease the use of narcotic pain medication as tolerated. Should you require a refill, please call the office. [facility] prescribes narcotic pain medication for only 4-6 weeks after surgery. If you require pain medication beyond this time period, you may be referred to your Primary Care Physician or to the Pain Clinic for further evaluation. Plan ahead for refills on pain medication as many narcotics either need to be picked up at the office or mailed. It is best to call 48-72 hours in advance of needing a prescription refill so you don't run out of medication. To help control the post-operative pain, you may take NSAIDs (Aleve,Advil, Motrin, Ibuprofen, Naprosyn) or Tylenol as prescribed on the bottle in addition to the pain medication. WOUND CARE: Leave the dressing on for 7-10 days. You may change the dressing if it becomes saturated greater than 50%. Do not get the dressing wet at anytime. Wash your hands with antibacterial soap, rinse and dry prior to any wound care. If you have walter the visiting nurse or rehab facility can remove the stapes 10-14 days after surgery and place steri-strips across the wound. Leave the steri-strips in place until they fall off on their own. You may let water from the shower run on top of the steri-strips. If you do not have a visiting nurse or rehab facility, you will need to return to the office at 10-14 days for the walter to be removed. If you have itching or redness around the dressing call the office. FOLLOW-UP: Please follow up with your surgeon in the orthopedic clinic, as scheduled Referrals: Arben Romero CNP [Advanced Practice Nurse] - Karolina Melo [Primary Care Provider] - Estrella Hopson, PAC [Physician News Analyst] - 11/28/17 10:00 am Salvatore Orr MD [Partnered Physician] - Prescriptions: Diclofenac Sodium [Voltaren] 50 mg PO Q8HR PRN #9 tablet.dr DUGGAN Reason: [facility] Pain cephALEXin [Keflex] 500 mg PO BID #8 capsule Fluconazole [Diflucan] 150 mg PO Q72H #2 tab
[2017-11-19] MEDS ORDERED: Ketorolac 30 MG/ML VIAL IVP SCH (18:00)
[2017-11-19] MEDS: FLUoxetine 20 MG CAPSULE PO SCH (22:13)
[2017-11-19] MEDS: valACYclovir 500 MG TABLET PO SCH (22:14)
[2017-11-19] MEDS: 0.9 % Sodium Chloride w KCl 20 MEQ/1,000 ML MLS IVC SCH (22:16)
[2017-11-20 05:36] LABS: Basophils # 0.1 K/mcL (0.0-0.2); Basophils % 0.5 %; Eosinophils # 0.3 K/mcL (0.0-0.6); Eosinophils % 1.8 %; Hematocrit 30.7 % (35.3-44.9); Hemoglobin 9.9 g/dL (11.5-15.4); Immature Granulocytes % 1.7 % (0-4); Lymphocytes # 7.9 K/mcL (0.6-4.6); Lymphocytes % 44.8 %; Mean Corpuscular HGB Conc 32.2 g/dL (31.6-35.5); Mean Corpuscular Hemoglobin 28.3 pg (28.0-33.3); Mean Corpuscular Volume 87.7 fL (83.0-100.0); Mean Platelet Volume 12.2 fL (9.4-12.4); Monocytes # 1.9 K/mcL (0.0-1.3); Monocytes % 10.9 %; Neutrophils # 7.1 K/mcL (1.6-8.9); Nucleated Red Blood Cells 0.6 /100 WBC (0); Platelet Count 445 K/mcL (140-400); Red Cell Distribution Width 20.8 % (11.5-14.5); Segmented Neutrophils % 40.3 %
--- NOTE | 2017-11-20 05:55 | Orthopedics Progress Note ---
Date of Encounter: 11/20/17 Time of Encounter: 05:54 Subjective Principal diagnosis: Right Proximal Humerus Fracture Interval history: Patient was seen this morning doing well without complaints. Afebrile vital signs stable. Operative extremity: Neurovascularly intact Dressing clean dry and intact Calves nontender Assessment and plan: Continue with postoperative care Orthopedic stable for discharge Objective Vital signs: Vital Signs Temp Pulse Resp BP Pulse Ox 11/20/17 05:04 98 F 91 14 121/74 95 11/20/17 00:55 98.3 F 106 18 107/61 95 Intake and Output 11/19/17 11/19/17 11/20/17 15:59 23:59 07:59 Intake Total 1000 / 1000 120 / 120 Output Total 0 / 0 Balance 1000 / 1000 120 / 120 Intake: IV Fluids 1000 / 1000 KCl 20 mEq in 0.9% Sodium 1000 / 1000 Chloride 20 meq In 1,000 ml @ 50 mls/hr IVC .Q20H ZOE Rx#: [id number] Oral 120 / 120 Output: Urine 0 / 0 Other: # Voids 2 - Labs CBC & BMP: 11/20/17 04:28 11/18/17 03:35 Labs: Abnormal lab results WBC 17.7 K/mcL (4.3-11.1) H 11/20/17 04:28 RBC 3.50 M/mcL (3.82-4.97) L 11/20/17 04:28 Hgb 9.9 g/dL (11.5-15.4) L D 11/20/17 04:28 Hct 30.7 % (35.3-44.9) L 11/20/17 04:28 RDW 20.8 % (11.5-14.5) H 11/20/17 04:28 Plt Count 445 K/mcL (140-400) H 11/20/17 04:28 Lymphocytes # 7.9 K/mcL (0.6-4.6) H 11/20/17 04:28 Monocytes # 1.9 K/mcL (0.0-1.3) H 11/20/17 04:28 Nucleated RBCs/100 WBC 0.6 /100 WBC (0) H 11/20/17 04:28 BUN 5 mg/dL (8-23) L 11/18/17 03:35 Venous Ioniz Calcium 1.03 mmol/L (1.15-1.35) L 11/16/17 15:05 - VTE Reasons for not Prescribing Prophylaxis: Medical contraindication Documentation of Mechanical Device: Venous foot pump, device Consult Discharge Plan - Plan Referrals: Karolina Melo [Primary Care Provider] -
[2017-11-20] MEDS: *HR* Heparin 5,000 UNIT/ML VIAL SQ SCH (06:03)
[2017-11-20] MEDS: Ketorolac 30 MG/ML VIAL IVP SCH (06:04)
[2017-11-20] MEDS: cephALEXin 500 MG CAPSULE PO SCH (09:43)
[2017-11-20] MEDS: Multivit/Ca/Min/Fe/FA 1 TAB TABLET PO SCH (09:44)
[2017-11-20] MEDS: Cholecalciferol (D-3) 1,000 UNIT TABLET PO SCH (09:44)
[2017-11-20] MEDS: *HR* OxyCODONE/APAP 7.5/325 TABLET PO PRN (09:45)
--- NOTE | 2017-11-20 12:30 | Neurology - Consult Note ---
Date of Encounter: 11/20/17 Time of Encounter: 07:25 Assessment and Plan (1) Syncope Current Visit: Yes Status: Acute This patient was been having multiple syncopal episodes though she did not lose consciousness with most of them but with the recent one she did not lose consciousness. She did have difficulty with a gait and balance and her multiple falls seems to be more mechanical than anything else but with the most recent one was without any warning signs and then she did have a brief period of loss of consciousness but no seizure type of activity reported at the same time no evidence of any postictal state. So far the workup has been negative especially for any vascular or any structural abnormalities. . Bilateral carotid arteries have minimal plaque throughout with no acute intercranial abnormality on CT of the head orthostatic blood pressures reviewed and she is not orthostatic Patient states this has happened multiple times Last two occurrances she has no preceding or post syncopal symptoms will review EEG though I really doubt it was a seizure most likely is a cardiogenic syncope or have some multifactorial Suggest to increase the fluid intake and keep her well hydrated she may get a cardiac workup especially for any cardiac dysrhythmias that could be done as an outpatient. We will follow the EEG and could evaluated the patient later on as an outpatient when she is more stable especially after the recovery from her recent surgery Qualifiers: Qualified Code(s): R55 - Syncope and collapse History of Present Illness HPI: Ms. Izaguirre is a 62 year old female with medical history that include thyroidectomy , cholecystectomy, hysterectomy, splenectomy and bariatric surgery. Patient stated she has been having syncopal episode for the past seven days which resulted in six falls . The fall was responsible for the right humeral fracture. While being prepared for orthopedic intervention she was found to have hypokalemia. She is being admitted to manage the hypokalemia, pain with planned surgical intervention Because of her history of multiple falls neurology service is been consulted. Past Med Surg Social Fam HX - Past Medical History Medical history: asthma, GERD, kidney stones, thyroid disease, other Psychiatric history: anxiety, depression, other - Past Surgical History Surgical History: appendectomy, cancer surgery, cataract, cholecystectomy, herniorrhaphy, hysterectomy, orthopedic, other, splenectomy, ZIGGY/BSO, thyroidectomy, other - Social History Smoking Status: Never smoker Smokeless Tobacco Status: No Alcohol use: occasionally Drug use: none - Family History Mother Living Status: Hx Family Cardiac Disorders: No Hx Family Respiratory Disorders: Yes (COPD) Hx Family Cancer: No Hx Family GI Disorders: No Hx Family Endocrine Disorder: No Hx Family Neuromuscular Disorders: No Hx Family Neurologic Disorders: No Hx Family HEENT Disorders: No Hx Family Autoimmune Disorders: No Father Living Status: Hx Family Cardiac Disorders: Yes (CHF, 4 MIs) Hx Family Respiratory Disorders: Yes (COPD) Hx Family Cancer: No Hx Family GI Disorders: No Hx Family Endocrine Disorder: No Hx Family Neuromuscular Disorders: No Hx Family Neurologic Disorders: No Hx Family HEENT Disorders: No Hx Family Autoimmune Disorders: No Medications and Allergies Amitriptyline [Elavil] 150 mg PO HS 01/20/16 [History] Cholecalciferol (Vitamin D3) [Vitamin D3] 5,000 unit PO DAILY 01/20/16 [History] Docusate Sodium [Colace] 200 mg PO DAILY 01/20/16 [History] FLUoxetine HCl [Prozac] 40 mg PO DAILY 01/20/16 [History] Multivitamin [Multi-Day Vitamins] 1 tab PO DAILY 01/20/16 [History] Vitamin B Complex [B Complex] 1 tab PO DAILY 01/20/16 [History] valACYclovir [Valtrex] 500 mg PO DAILY 01/20/16 [History] Buspirone HCl [Buspar] 15 mg PO BID 09/18/17 [History] Propranolol [Inderal] 10 mg PO TID PRN 09/18/17 [History] Atorvastatin Calcium [Lipitor] 20 mg PO HS 11/15/17 [History] DiphenhydraMINE [Benadryl] 50 mg PO HS 11/15/17 [History] Levothyroxine [Synthroid] 88 mcg PO 0630 11/15/17 [History] Metoclopramide HCl 5 mg PO BID PRN 11/15/17 [History] Oxycodone HCl/Acetaminophen [Percocet 7.5-325 mg Tablet] 1 tab PO Q8H PRN [History] OxyCODONE Immed Rel [Roxicodone 5 MG] 5 mg PO Q6HR PRN 7 Days #28 tablet [Rx] Diclofenac Sodium [Voltaren] 50 mg PO Q8HR PRN #9 tablet. 11/20/17 [Rx] cephALEXin [Keflex] 500 mg PO BID #8 capsule 11/20/17 [Rx] 3 Allergy/AdvReac Type Severity Reaction Status Date / Time codeine Allergy Anaphylaxis Verified 11/15/17 07:30 Iodinated Contrast- Oral and Allergy Anaphylaxis Verified 11/15/17 07:30 IV Dye [Iodinated Contrast Media - IV Dye] morphine Allergy Anaphylaxis Verified 11/15/17 07:30 phenobarbital Allergy Anxiety Verified 11/15/17 07:30 promethazine [From Phenergan] Allergy Shakiness Verified 11/15/17 07:30 titanium Allergy See Verified 11/15/17 07:30 Comments All Systems: The remainder of the systems were reviewed and are negative Physical Examination - Vital Signs Vital Signs: Initial Vital Signs Temp Pulse Resp BP Pulse Ox 98.5 F 64 18 112/67 96 11/15/17 09:25 11/15/17 09:25 11/15/17 09:25 11/15/17 09:25 11/15/17 09:25 - Exam Exam: GENERAL: Comfortable in no acute distress HEENT: Normal LUNGS: CTA HEART: RRR, S1 S2 Audible, no murmur EXTREMITIES: No Pedal edema. DETAILED NEUROLOGICAL EXAMINATION: MENTAL STATUS: Oriented to person, place, date and situation. Memory: knows the President, Aware of recent events Recent Memory Intact Cranial Nerve Examination: CN - II: Visual Acuity, Field of Vision Normal, Fundus examination: No disk edema, Pupils- size shape reaction to light and accommodation: All normal. CN III, IV, : External ocular movements were intact, Pupils were reactive, Nodrooping of the eyelids CN V: Sensation over the face to light touch and pinprick all normal. Corneal reflexes not tested, jaw jerk normal. CN VII: No facial asymmetry, no flattening of nasolabial folds, no difficulty in closing the eyes, no loss of forehead wrinkles, no difficulty in eye-closure, frowning raising eyebrows. CNVIII: No significant hearing loss CN IX, X: Uvula centralized not deviated, Gag reflex: Not tested CN X1: Sternocleidomastoid, trapezius, normal or evidence of any weakness. CN X11: No Dysarthria, no wasting or fibrilation f tongue muscles, no deviation, tongue muscle strength normal. Motor examination: No hypertrophy, tone was normal, power grade 0-5 Upper limbs right upper limb in brace due to surgery Lower limbs Proximal- No difficulty in getting up from the sitting position Distal- No difficulty in walking On formal testing 5/5 all over Coordination: [id number] normal. Target pursuit normal finger tapping normal, Rapid alternating moment of wrist normal Sensory system: Superficial sensations- Touch normal. Pain- Pinprick, Temperature all normal, Deep sensation normal, Joint position sense normal. Cortical sensation, Tactile discrimination, localization and extinction all normal. Deep tendon reflexes. Symmetrical bilateral, No evidence of Babinski. No sign of meningeal irritation Gait Examination: Deferred - Constitutional General appearance: comfortable, other Results - Laboratory Findings CBC and BMP: 11/20/17 14:53 11/18/17 03:35 Abnormal lab findings: Abnormal lab results WBC 17.7 K/mcL (4.3-11.1) H 11/20/17 04:28 RBC 3.50 M/mcL (3.82-4.97) L 11/20/17 04:28 Hgb 9.9 g/dL (11.5-15.4) L D 11/20/17 04:28 Hct 30.7 % (35.3-44.9) L 11/20/17 04:28 RDW 20.8 % (11.5-14.5) H 11/20/17 04:28 Plt Count 445 K/mcL (140-400) H 11/20/17 04:28 Lymphocytes # 7.9 K/mcL (0.6-4.6) H 11/20/17 04:28 Monocytes # 1.9 K/mcL (0.0-1.3) H 11/20/17 04:28 Nucleated RBCs/100 WBC 0.6 /100 WBC (0) H 11/20/17 04:28 BUN 5 mg/dL (8-23) L 11/18/17 03:35 Venous Ioniz Calcium 1.03 mmol/L (1.15-1.35) L 11/16/17 15:05 - Diagnostic Findings Additional findings: The skin of the head has been negative. Carotid duplex and echocardiogram are also negative Consult Discharge Plan - Plan Instructions: Oxycodone, Rapid Release (By mouth) Additional Instructions: Discharge Instructions: Total Shoulder Please call [facility] ([phone]), your Primary Care Physician, or report to the Emergency Room if you have any of the following symptoms: Nausea, vomiting, fever greater that 101.5, swelling, chest pain, shortness of breath, increased pain/redness/drainage/odor for your incision site, numbness/ tingling, or any other concerning symptoms. ACTIVITY: Always keep your arm in the sling. Do not raise your arm away from your body. Do not use your arm to help with getting in or out of bed. No weight bearing permitted. Only perform those exercises given to you by your therapist. MEDICATIONS: Upon discharge resume your home medications. Take all the medications as prescribed. Take a stool softener if taking narcotic pain medications. Stool softeners are only effective if you drink enough fluids. Drink 6-8 glass of water or fluids a day, unless this is not allowed for another health problem. Despite using stool softeners, if you haven't had a bowel movement in 3 days, please switch to a gentle laxative. Gentle laxatives are sold over the counter. You should have a bowel movement within 24 hours, if not call the office. You will be discharged from the hospital with a prescription for pain medication. You are encouraged to decrease the use of narcotic pain medication as tolerated. Should you require a refill, please call the office. [facility] prescribes narcotic pain medication for only 4-6 weeks after surgery. If you require pain medication beyond this time period, you may be referred to your Primary Care Physician or to the Pain Clinic for further evaluation. Plan ahead for refills on pain medication as many narcotics either need to be picked up at the office or mailed. It is best to call 48-72 hours in advance of needing a prescription refill so you don't run out of medication. To help control the post-operative pain, you may take NSAIDs (Aleve,Advil, Motrin, Ibuprofen, Naprosyn) or Tylenol as prescribed on the bottle in addition to the pain medication. WOUND CARE: Leave the dressing on for 7-10 days. You may change the dressing if it becomes saturated greater than 50%. Do not get the dressing wet at anytime. Wash your hands with antibacterial soap, rinse and dry prior to any wound care. If you have walter the visiting nurse or rehab facility can remove the stapes 10-14 days after surgery and place steri-strips across the wound. Leave the steri-strips in place until they fall off on their own. You may let water from the shower run on top of the steri-strips. If you do not have a visiting nurse or rehab facility, you will need to return to the office at 10-14 days for the walter to be removed. If you have itching or redness around the dressing call the office. FOLLOW-UP: Please follow up with your surgeon in the orthopedic clinic, as scheduled Referrals: Karolina Melo [Primary Care Provider] - Estrella Hopson PAC [Physician Inflated Pad Buffer] - 11/28/17 10:00 am Prescriptions: Diclofenac Sodium [Voltaren] 50 mg PO Q8HR PRN #9 tablet.dr DUGGAN Reason: Breakthrough Pain cephALEXin [Keflex] 500 mg PO BID #8 capsule
--- NOTE | 2017-11-20 13:06 | EEG/EMG/Oth Biometrics Report ---
EEG Procedure Report Date of procedure: 11/20/17 EEG Procedure: Routine EEG Procedure Note: Routine 21-channel digital EEG performed and recorded utilizing the standard international 10-20 electrode placement system. FINDINGS: This patient has predominant waking background rhythm which is well- organized, well-developed, average voltage 8 to 10 hertz alpha activity in the posterior regions, symmetrical over the both hemispheres reactive to eye opening and closing, and it is bilaterally synchronous. No [id number] discharges or any lateralizing abnormalities are seen. Photic stimulation and hyperventilation did not produce any convulsive response. No abnormalities were found during the procedure. Intermittent EMG artifacts were seen. Stage II sleep was not achieved. IMPRESSION: Normal awake/ drowsy electroencephalogram. No epileptiform discharges or any other paroxysmal activities or focal abnormalities seen. (Please note that normal EEG does not exclude the diagnosis of seizure or epilepsy, Clinical correlation is recommended.
[2017-11-20 15:12] LABS: Basophils # 0.1 K/mcL (0.0-0.2); Basophils % 0.7 %; Eosinophils # 0.8 K/mcL (0.0-0.6); Eosinophils % 4.8 %; Hematocrit 30.4 % (35.3-44.9); Hemoglobin 9.7 g/dL (11.5-15.4); Immature Granulocytes % 1.1 % (0-4); Lymphocytes # 6.4 K/mcL (0.6-4.6); Lymphocytes % 39.3 %; Mean Corpuscular HGB Conc 31.9 g/dL (31.6-35.5); Mean Corpuscular Volume 87.6 fL (83.0-100.0); Mean Platelet Volume 10.9 fL (9.4-12.4); Monocytes # 1.8 K/mcL (0.0-1.3); Monocytes % 10.9 %; Nucleated Red Blood Cells 0.2 /100 WBC (0); Platelet Count 529 K/mcL (140-400); Red Blood Count 3.47 M/mcL (3.82-4.97); Red Cell Distribution Width 20.5 % (11.5-14.5); Segmented Neutrophils % 43.2 %
[2017-11-20 16:20] VITALS: BP 115/72
--- NOTE | 2017-11-20 17:17 | Discharge Summary ---
- NOTES TO OUTPATIENT PROVIDER Notes to Outpatient Provider: - Cardiology follow-up as outpatient for recurrent syncopal episodes. - Neurology follow-up in 3-4 weeks. - Follow-up for UTI as needed. Date of Encounter: 11/20/17 Time of Encounter: 17:13 - Discharge Diagnosis (1) Syncope Priority: Primary Status: Acute Qualifiers: Syncope type: unspecified Qualified Code(s): R55 - Syncope and collapse (2) Humerus fracture Priority: Secondary Status: Inactive Qualifiers: Encounter type: subsequent encounter Humerus Location: proximal Fracture type: closed Fracture morphology: unspecified fracture morphology Laterality : right Fracture healing: with routine healing Qualified Code(s): S42.201D - Unspecified fracture of upper end of right humerus, subsequent encounter for fracture with routine healing (3) Hypokalemia Priority: Secondary Status: Acute (4) Hypocalcemia Priority: Secondary Status: Acute (5) Leukocytosis Priority: Secondary Status: Acute Qualifiers: Leukocytosis type: eosinophilia Qualified Code(s): D72.1 - Eosinophilia (6) Risk for falls Priority: Secondary Status: Acute (7) Anxiety and depression Priority: Secondary Status: Chronic (8) UTI (urinary tract infection) Priority: Secondary Status: Acute Qualifiers: Urinary tract infection type: site unspecified Hematuria presence: without hematuria Qualified Code(s): N39.0 - Urinary tract infection, site not specified Hospital course: Ms. Izaguirre is a 62 year old female with medical history that include thyroidectomy , cholecystectomy, hysterectomy, splenectomy and bariatric surgery. Patient stated she has been having syncopal episode for the past seven days which resulted in six falls . The fall was responsible for the right humeral fracture. While being prepared for orthopedic intervention she was found to have hypokalemia. She was being admited to manage the hypokalemia, pain with planned surgical intervention. Patient had leukocytosis and urinalysis showed UTI that grew Aerococcus urinae, and she was started on Keflex. She had open reduction and internal fixation of proximal humerus on 11/18 and tolerated procedure well. Syncopal workup included bilateral carotid arteries with minimal plaque and negative CT of head. Orthostatic blood pressure was negative. An echocardiogram showed no significant dysfunction. Neurology was consulted and EEG done which was negative. Patient is to follow-up with Neurology in 3-4 weeks and we are arranging for outpatient Cardiology appointment for syncope workup as well. She was discharged home in stable condition. Neurology and Cardiology outpatient referrals are being coordinated. - Time Spent with Patient Total time spent providing and/or coordinating discharge services: - Discharge Medications Prescriptions: Diclofenac Sodium [Voltaren] 50 mg PO Q8HR PRN #9 tablet.dr DUGGAN Reason: Breakthrough Pain cephALEXin [Keflex] 500 mg PO BID #8 capsule Fluconazole [Diflucan] 150 mg PO Q72H #2 tab Home Medications: Amitriptyline [Elavil] 150 mg PO HS 01/20/16 [History] Cholecalciferol (Vitamin D3) [Vitamin D3] 5,000 unit PO DAILY 01/20/16 [History] Docusate Sodium [Colace] 200 mg PO DAILY 01/20/16 [History] FLUoxetine HCl [Prozac] 40 mg PO DAILY 01/20/16 [History] Multivitamin [Multi-Day Vitamins] 1 tab PO DAILY 01/20/16 [History] Vitamin B Complex [B Complex] 1 tab PO DAILY 01/20/16 [History] valACYclovir [Valtrex] 500 mg PO DAILY 01/20/16 [History] Buspirone HCl [Buspar] 15 mg PO BID 09/18/17 [History] Propranolol [Inderal] 10 mg PO TID PRN 09/18/17 [History] Atorvastatin Calcium [Lipitor] 20 mg PO HS 11/15/17 [History] DiphenhydraMINE [Benadryl] 50 mg PO HS 11/15/17 [History] Levothyroxine [Synthroid] 88 mcg PO 0630 11/15/17 [History] Metoclopramide HCl 5 mg PO BID PRN 11/15/17 [History] Oxycodone HCl/Acetaminophen [Percocet 7.5-325 mg Tablet] 1 tab PO Q8H PRN [History] OxyCODONE Immed Rel [Roxicodone 5 MG] 5 mg PO Q6HR PRN 7 Days #28 tablet [Rx] Diclofenac Sodium [Voltaren] 50 mg PO Q8HR PRN #9 tablet. 11/20/17 [Rx] Fluconazole [Diflucan] 150 mg PO Q72H #2 tab 11/20/17 [Rx] cephALEXin [Keflex] 500 mg PO BID #8 capsule 11/20/17 [Rx] Allergies/Adverse Reactions: 3 Allergy/AdvReac Type Severity Reaction Status Date / Time codeine Allergy Anaphylaxis Verified 11/15/17 07:30 Iodinated Contrast- Oral and Allergy Anaphylaxis Verified 11/15/17 07:30 IV Dye [Iodinated Contrast Media - IV Dye] morphine Allergy Anaphylaxis Verified 11/15/17 07:30 phenobarbital Allergy Anxiety Verified 11/15/17 07:30 promethazine [From Phenergan] Allergy Shakiness Verified 11/15/17 07:30 titanium Allergy See Verified 11/15/17 07:30 Comments Date of admission: 11/19/17 20:15 Primary care physician: Karolina Melo Consults: 11/20/17 11:37 Consult to Interpret Exam [CONS] Routine Consulting Provider: Salvatore Orr I Consult to Interpret Exam: Interpret EEG Discharging clinician: Augusta Kelly - Constitutional Vitals: Temp Pulse Resp BP Pulse Ox 98.8 F 110 14 115/72 98 11/20/17 16:19 11/20/17 16:19 11/20/17 16:19 11/20/17 16:19 11/20/17 10:00 General appearance: Present: cooperative, A&O X 3, pleasant, no acute distress, answers questions appropriately - Head Head exam: Present: atraumatic, normocephalic - Eye Eye exam: Present: PERRL, conjuntiva pink, sclera anicteric Pupils: Present: PERRL - Neck Neck exam general surgery: Present: supple, trachea midline. Absent: lymphadenopathy - Respiratory Respiratory exam: Present: CTAB. Absent: accessory muscle use, rales, rhonchi, wheezes - Cardiovascular Cardiovascular exam: Present: RRR, +S1, +S2. Absent: diastolic murmur, gallop, rubs, systolic murmur - GI/Abdominal GI/Abdominal exam: Present: normal bowel sounds, soft, no peritoneal signs. Absent: distended, tenderness - Extremities Exam Extremities exam: Present: warm, radial pulses palpable and symmetrical. Absent : calf tenderness, cyanotic, pedal edema Additional comments: Right arm in cast. Sensation and pulses equal in both arms bilaterallly. - Neurological Exam Neurological exam: Present: CN II-XII intact, oriented X3, no focal deficits. Absent: pronater drift, facial droop, speech deficit - Skin Skin exam: Present: dry, intact - Patient Status Disposition: Home Health Service Condition: Good Functional capacity at discharge: independent ambulation Overall status at discharge: patient is progressing back to baseline - Discharge Instructions Instructions: Oxycodone, Rapid Release (By mouth) Follow Up With: Karolina Melo [Primary Care Provider] - Estrella Hopson PAC [Physician Senior Group Manager] - 11/28/17 10:00 am Additional Instructions: Discharge Instructions: Total Shoulder Please call [facility] ([phone]), your Primary Care Physician, or report to the Emergency Room if you have any of the following symptoms: Nausea, vomiting, fever greater that 101.5, swelling, chest pain, shortness of breath, increased pain/redness/drainage/odor for your incision site, numbness/ tingling, or any other concerning symptoms. ACTIVITY: Always keep your arm in the sling. Do not raise your arm away from your body. Do not use your arm to help with getting in or out of bed. No weight bearing permitted. Only perform those exercises given to you by your therapist. MEDICATIONS: Upon discharge resume your home medications. Take all the medications as prescribed. Take a stool softener if taking narcotic pain medications. Stool softeners are only effective if you drink enough fluids. Drink 6-8 glass of water or fluids a day, unless this is not allowed for another health problem. Despite using stool softeners, if you haven't had a bowel movement in 3 days, please switch to a gentle laxative. Gentle laxatives are sold over the counter. You should have a bowel movement within 24 hours, if not call the office. You will be discharged from the hospital with a prescription for pain medication. You are encouraged to decrease the use of narcotic pain medication as tolerated. Should you require a refill, please call the office. [facility] prescribes narcotic pain medication for only 4-6 weeks after surgery. If you require pain medication beyond this time period, you may be referred to your Primary Care Physician or to the Pain Clinic for further evaluation. Plan ahead for refills on pain medication as many narcotics either need to be picked up at the office or mailed. It is best to call 48-72 hours in advance of needing a prescription refill so you don't run out of medication. To help control the post-operative pain, you may take NSAIDs (Aleve,Advil, Motrin, Ibuprofen, Naprosyn) or Tylenol as prescribed on the bottle in addition to the pain medication. WOUND CARE: Leave the dressing on for 7-10 days. You may change the dressing if it becomes saturated greater than 50%. Do not get the dressing wet at anytime. Wash your hands with antibacterial soap, rinse and dry prior to any wound care. If you have walter the visiting nurse or rehab facility can remove the stapes 10-14 days after surgery and place steri-strips across the wound. Leave the steri-strips in place until they fall off on their own. You may let water from the shower run on top of the steri-strips. If you do not have a visiting nurse or rehab facility, you will need to return to the office at 10-14 days for the walter to be removed. If you have itching or redness around the dressing call the office. FOLLOW-UP: Please follow up with your surgeon in the orthopedic clinic, as scheduled - Diet and Activity Activity: as per physical therapy Diet: advance to your usual diet - VTE Reasons for not Prescribing Prophylaxis: Medical contraindication Documentation of Mechanical Device: Venous foot pump, device
--- NOTE | 2017-11-20 17:28 | Physician Discharge Referral ---
Home Health/Hosp Referral Info Transfer to: Home Health Provider in Charge Post Discharge: PCP - Diagnosis (1) Syncope Priority: Primary Status: Acute (2) Humerus fracture Priority: Secondary Status: Inactive (3) Hypokalemia Priority: Secondary Status: Acute (4) Hypocalcemia Priority: Secondary Status: Acute (5) Leukocytosis Priority: Secondary Status: Acute (6) Risk for falls Priority: Secondary Status: Acute (7) Anxiety and depression Priority: Secondary Status: Chronic (8) UTI (urinary tract infection) Priority: Secondary Status: Acute - Respiratory Orders Smoking Cessation: Smoking cessation has been advised. For more information, call the [place] Tobacco Quit Line at 1-956-GZXA-NOW. - Diet/Nutrition Diet/Nutrition Orders: Regular - Activity Activity: List: as per physical therapy - Services Needed Following services are medically necessary services: Nursing, Home Health Aide, Physical Therapy, Occupational Therapy - Transfer Medications Prescriptions: Diclofenac Sodium [Voltaren] 50 mg PO Q8HR PRN #9 tablet. PRN Reason: Breakthrough Pain cephALEXin [Keflex] 500 mg PO BID #8 capsule Fluconazole [Diflucan] 150 mg PO Q72H #2 tab Home Medications: Amitriptyline [Elavil] 150 mg PO HS 01/20/16 [History] Cholecalciferol (Vitamin D3) [Vitamin D3] 5,000 unit PO DAILY 01/20/16 [History] Docusate Sodium [Colace] 200 mg PO DAILY 01/20/16 [History] FLUoxetine HCl [Prozac] 40 mg PO DAILY 01/20/16 [History] Multivitamin [Multi-Day Vitamins] 1 tab PO DAILY 01/20/16 [History] Vitamin B Complex [B Complex] 1 tab PO DAILY 01/20/16 [History] valACYclovir [Valtrex] 500 mg PO DAILY 01/20/16 [History] Buspirone HCl [Buspar] 15 mg PO BID 09/18/17 [History] Propranolol [Inderal] 10 mg PO TID PRN 09/18/17 [History] Atorvastatin Calcium [Lipitor] 20 mg PO HS 11/15/17 [History] DiphenhydraMINE [Benadryl] 50 mg PO HS 11/15/17 [History] Levothyroxine [Synthroid] 88 mcg PO 0630 11/15/17 [History] Metoclopramide HCl 5 mg PO BID PRN 11/15/17 [History] Oxycodone HCl/Acetaminophen [Percocet 7.5-325 mg Tablet] 1 tab PO Q8H PRN [History] OxyCODONE Immed Rel [Roxicodone 5 MG] 5 mg PO Q6HR PRN 7 Days #28 tablet [Rx] Diclofenac Sodium [Voltaren] 50 mg PO Q8HR PRN #9 tablet. 11/20/17 [Rx] Fluconazole [Diflucan] 150 mg PO Q72H #2 tab 11/20/17 [Rx] cephALEXin [Keflex] 500 mg PO BID #8 capsule 11/20/17 [Rx] Allergies/Adverse Reactions: 3 Allergy/AdvReac Type Severity Reaction Status Date / Time codeine Allergy Anaphylaxis Verified 11/15/17 07:30 Iodinated Contrast- Oral and Allergy Anaphylaxis Verified 11/15/17 07:30 IV Dye [Iodinated Contrast Media - IV Dye] morphine Allergy Anaphylaxis Verified 11/15/17 07:30 phenobarbital Allergy Anxiety Verified 11/15/17 07:30 promethazine [From Phenergan] Allergy Shakiness Verified 11/15/17 07:30 titanium Allergy See Verified 11/15/17 07:30 Comments Certification: Further, I certify that my clinical findings support that this patient is homebound (i.e. absences from home require considerable and taxing effort and are for medical reasons or sikhism services or infrequently or short duration when for other reasons) because: Homebound Reason: Post-surgery restriction and or conditions limit ability to leave home Attestation: My signature below is to certify that this patient is under my care and that I, or nurse practitioner, or a physician's dental hygiene administrative assistant working with me, has a face-to -face encounter with this patient.
== END 2017-11-20 18:03 | disposition home health service (06) | DRG 494 ==
LOC: EMEROO 09:16 → 3BNU 09:16 → SUATTDRO 12:12 → 3BNU 12:45 → 3NENU 11-18 16:21
PROVIDERS: ADMIT Internal Medicine; ATTEND Internal Medicine

== ENCOUNTER 2018-02-07 11:36 | Inpatient (IN) ==
--- NOTE | 2018-02-07 11:47 | History & Physical Report ---
Date of Encounter: 02/07/18 Time of Encounter: 11:46 24 Hour HP Update - Instructions Instructions: If the History and Physical is less than 30 days old and was completed prior to A.M. admission and or procedure and has NOT been updated on calendar day of procedure please complete this update prior to performing procedure. - Update Patient reports changes in Medical Condition: No Changes in examination, assessment, or condition: No Changes in Medication: No Preop tests/diagnostics Reviewed: Yes Surgery Remains Indicated: Yes Consent for Planned Operative Procedure(s) Verified: Yes - Pre-Operative Checklist Preoperative Checklist Indicated: No Prophylactic Antibiotic Ordered: Yes Is VTE Prophylaxis Indicated?: Yes
[2018-02-07] MEDS ORDERED: Dexamethasone 4 MG/ML VIAL ONE (11:52)
[2018-02-07] MEDS ORDERED: Lidocaine -MPF 4% 5 ML AMPUL ONE (11:52)
[2018-02-07] MEDS ORDERED: *HR* Propofol 200 MG/20 ML VIAL IVP ONE (11:52)
[2018-02-07] MEDS ORDERED: *HR* FentaNYL (PF) 100 MCG/2 ML VIAL ONE (11:52)
[2018-02-07] MEDS ORDERED: *HR* Succinylcholine 200 MG/10 ML VIAL IVP ONE (11:52)
[2018-02-07] MEDS ORDERED: *HR* Midazolam HCl 2 MG/2 ML VIAL ONE (11:52)
[2018-02-07] MEDS ORDERED: Lidocaine -MPF 2% 2 ML VIAL ONE ×2 (11:52)
[2018-02-07] MEDS ORDERED: *HR* Phenylephrine 10 MG/ML VIAL ONE (11:52)
[2018-02-07] MEDS ORDERED: Ondansetron 4 MG/2 ML VIAL ONE (11:52)
--- NOTE | 2018-02-07 11:53 | Anesthesia Evaluation PreOp ---
Date of Encounter: 02/07/18 Time of Encounter: 11:51 - Past History Planned Operation: ORIF Right Proximal Humerus Cardiac History: HTN, Hyperlipidemia Pulmonary History: Asthma ((Chronic Bronchitis)) TIPPLE TENDER History: Syncope (Syncopal episodes for 1 week resulting in fall on 11/09), Other (Hypokalemia, anxiety, depression. Post-splenectomy syndrome: anemia, thrombocytosis, leukocytosis. Severe Osteoporosis) Other Medical History: Renal (CKD), Thyroid (Thyroidectomy, cholecystectomy, hysterectomy, splenectomy, appendectomy, bariatric surgery, multiple other), Other (Glaucoma) Anesthesia History: No Prior Anesthetic Complications, Past Anesthesia (Gastric bypass, tonsils, CTR, ZIGGY-BSO, r.wrist, Rr.ankle x 4, lithotripsy, thyroidectomy , GB) : No Alcohol Use: occasionally Drug use: none Medications and Allergies 3 Allergy/AdvReac Type Severity Reaction Status Date / Time codeine Allergy Anaphylaxis Verified 11/15/17 07:30 Iodinated Contrast- Oral and Allergy Anaphylaxis Verified 11/15/17 07:30 IV Dye [Iodinated Contrast Media - IV Dye] morphine Allergy Anaphylaxis Verified 11/15/17 07:30 phenobarbital Allergy Anxiety Verified 11/15/17 07:30 promethazine [From Phenergan] Allergy Shakiness Verified 11/15/17 07:30 titanium Allergy See Verified 11/15/17 07:30 Comments - Meds/Allergy Pre-op Review Medications Reviewed: Yes Allergies Reviewed: Yes Beta Blockers on Current Med List: Yes If Beta Blockers taken, Date/Time (Last Dose taken): 10:30 Today Anesthesia Results - Labs Laboratory Tests 11/20/17 01/07/18 14:53 13:21 WBC 16.2 H Hgb 9.7 L Hct 30.4 L Plt Count 529 H Sodium 141 Potassium 3.2 L Chloride 104 Carbon Dioxide 28 BUN 13 Echocardiogram Name: Jaida Izaguirre Date of Study: 11/15/2017 EV/EV echocardiogram Impressions: LVEF 50-55%. No pulmonary hypertension. No significant valvular dysfunction. - Imaging EKG: report reviewed (SB) Anesthesia Exam O2 Sat Height 1.7 m Height 1.7 m Weight 88.451 kg Weight 88.451 kg O2 Sat by Pulse Oximetry 95 Vital Signs Temp Pulse Resp BP Pulse Ox 99.3 F 68 18 109/63 95 02/07/18 11:54 06/15/18 11:54 02/07/18 11:54 02/07/18 11:54 02/07/18 11:54 - HEENT Pupil (Motor): Pupils equal, EOMI Mallampati: II Teeth: Edentulous Oral Opening: Greater than 3 - TIPPLE TENDER LOC: Oriented TIPPLE TENDER Motor: Normal RUE, Normal LUE, Normal RLE, Normal LLE, Normal Face TIPPLE TENDER Sensory: Normal: RUE, LUE, RLE, LLE, Face - Cardiac Rhythm: Regular Murmur: None JVD: No Carotid Bruit: No - Pulmonary Breath Sounds: bilateral Clear Respiratory Effort: Symmetrical Anesthesia Assess/Plan ASA Score: 4 Modified [place] Scale for Level of Consciousness: Cooperative, oriented, and tranquil Anesthetic Plan: General Autologous Blood: Yes Monitoring Plan: Standard Monitors Recovery Plan: PACU
[2018-02-07] MEDS ORDERED: Ethanol\\Acetic Acid\\Na Ace\\Ben 1,000 ML IRRIG.SOLN IR ONE (12:03)
--- NOTE | 2018-02-07 12:07 | Discharge Summary ---
Orders not resulted at time of discharge: Pending orders 02/07/18 10:38 XR shoulder complete RT [XR] Routine Hemoglobin and Hematocrit [HEME] Routine 02/07/18 11:50 US anesthesia pain block [US] Routine Date of Encounter: 02/08/18 Time of Encounter: 06:54 - Discharge Diagnosis (1) Hypertension Priority: Secondary Status: Chronic Qualifiers: Hypertension type: unspecified Qualified Code(s): I10 - Essential (primary ) hypertension (2) Hyperlipidemia Priority: Secondary Status: Chronic Qualifiers: Hyperlipidemia type: unspecified Qualified Code(s): E78.5 - Hyperlipidemia , unspecified (3) Asthma Priority: Secondary Status: Chronic Qualifiers: Asthma severity: unspecified severity Asthma persistence: unspecified Asthma complication type: unspecified Qualified Code(s): J45.909 - Unspecified asthma, uncomplicated (4) History of hypokalemia Priority: Secondary Status: Acute (5) History of syncope Priority: Secondary Status: Acute (6) Closed fracture of right proximal humerus Priority: Primary Status: Acute Qualifiers: Encounter type: subsequent encounter Fracture morphology: unspecified fracture morphology Fracture healing: with malunion Qualified Code(s): S42.201P - Unspecified fracture of upper end of right humerus, subsequent encounter for fracture with malunion (7) Loosening of bone fixation device Priority: Primary Status: Acute Qualifiers: Encounter type: subsequent encounter Qualified Code(s): T84.498D - Other mechanical complication of other internal orthopedic devices, implants and grafts, subsequent encounter (8) Status post reverse total replacement of right shoulder Priority: Primary Status: Acute (9) Osteoporosis Priority: Secondary Status: Chronic Qualifiers: Osteoporosis type: unspecified Presence of current pathological fracture: unspecified Qualified Code(s): M81.0 - Age-related osteoporosis without current pathological fracture (10) Hypothyroidism Priority: Secondary Status: Chronic Qualifiers: Hypothyroidism type: unspecified Qualified Code(s): E03.9 - Hypothyroidism , unspecified (11) Acute blood loss anemia Priority: Primary Status: Acute - Hospital Course Hospital course: Ms. Izaguirre is a 62 year old female Status post right total shoulder replacement reverse The patient had an uneventful postoperative course. They received antibiotics and physical therapy and were discharged in stable condition. There will follow -up in the office in 2 weeks. - Time Spent with Patient Total time spent providing and/or coordinating discharge services: - Discharge Medications Prescriptions: Cyclobenzaprine [Flexeril] 10 mg PO TID #30 tablet Home Medications: Atorvastatin Calcium [Lipitor] 1 tab PO DAILY 02/07/18 [History] Buspirone HCl [Buspar] 1 tab PO BID 02/07/18 [History] Calcium Carbonate [Calcium] 1 tab PO TID 02/07/18 [History] Cholecalciferol (D-3) [Vitamin D] 5,000 unit PO DAILY 02/07/18 [History] DiphenhydraMINE [Benadryl] 2 cap PO DAILY 02/07/18 [History] Docusate Sodium [Dok] 100 mg PO DAILY #0 02/07/18 [History] FLUoxetine HCl [Prozac] 1 cap PO DAILY 02/07/18 [History] Levothyroxine Sodium [Levoxyl] 1 tab .ROUTE DAILY 02/07/18 [History] Multivit-Min/FA/Lycopen/Lutein [A Thru Z Select Multivit Tab] 1 tab PO DAILY #0 02/07/18 [History] Ondansetron ODT [Zofran ODT] 1 tab PO Q8HR 02/07/18 [History] Pantoprazole Sodium [Protonix] 1 tab PO DAILY 02/07/18 [History] Potassium Chloride [Klor-Con Sprinkle] 2 cap PO BID 02/07/18 [History] Propranolol [Inderal] 1 tab PO TID 02/07/18 [History] Vitamin B Complex [B Complex] 1 each PO DAILY #0 02/07/18 [History] valACYclovir [Valtrex] 500 mg PO DAILY #0 02/07/18 [History] Cyclobenzaprine [Flexeril] 10 mg PO TID #30 tablet 02/08/18 [Rx] Allergies/Adverse Reactions: 3 Allergy/AdvReac Type Severity Reaction Status Date / Time codeine Allergy Anaphylaxis Verified 11/15/17 07:30 Iodinated Contrast- Oral and Allergy Anaphylaxis Verified 11/15/17 07:30 IV Dye [Iodinated Contrast Media - IV Dye] morphine Allergy Anaphylaxis Verified 11/15/17 07:30 phenobarbital Allergy Anxiety Verified 11/15/17 07:30 promethazine [From Phenergan] Allergy Shakiness Verified 11/15/17 07:30 titanium Allergy See Verified 11/15/17 07:30 Comments Primary care physician: Cristina Woodruff MD - Patient Status Disposition: Home, Self-Care Condition: Good Functional capacity at discharge: independent ambulation Overall status at discharge: patient is progressing back to baseline - Discharge Instructions Follow Up With: Cristina Woodruff MD [Primary Care Provider] -
[2018-02-07] MEDS ORDERED: Bupivacaine/Clonidine Syringe 1 EACH SYRINGE ONE (12:27)
[2018-02-07] MEDS ORDERED: ROPIVACAINE HCL/PF 0.5% 30 ML VIAL ONE (12:27)
--- NOTE | 2018-02-07 12:34 | Physician Discharge Referral ---
Home Health/Hosp Referral Info Transfer to: Home Health Attending Provider: Provider in Charge Post Discharge: PCP - Diagnosis (1) Status post reverse total replacement of right shoulder Priority: Primary Status: Acute (2) Closed fracture of right proximal humerus Priority: Primary Status: Acute (3) Loosening of bone fixation device Priority: Primary Status: Acute (4) Hypertension Status: Chronic (5) Hyperlipidemia Status: Chronic (6) Asthma Status: Chronic (7) History of hypokalemia Status: Acute (8) History of syncope Status: Acute - Respiratory Orders None Smoking Cessation: Smoking cessation has been advised. For more information, call the [place] Tobacco Quit Line at 2-177-PJVT-NOW. - Diet/Nutrition Diet/Nutrition Orders: Regular - Activity Activity Orders: Up ad manuel, Ambulate, Chair - Services Needed Following services are medically necessary services: Nursing, Home Health Aide, Physical Therapy, Occupational Therapy Home Care Orders: Opsite dressing, leave intact until first post-operative visit. Zipline/Yuni in place, plan to remove at post-operative day #14-16. If dressing becomes >50% saturated, contact office, remove dressing and place appropriate dressing in its place. Do not allow for dressing to get wet. Shoulder Precautions x 6 weeks. Apply cold therapy wrap 3-6x/day for 20 minutes at a time. Encourage ambulation throughout the day. Use Incentive spirometer 10x/hour. Elevate affected extremity above heart as tolerated. NWB to affected upper extremity x 6 weeks. Will remove brace at first post-operative appointment. OK to remove during PT/ OT and Home exercises. - Transfer Medications Allergies/Adverse Reactions: 3 Allergy/AdvReac Type Severity Reaction Status Date / Time codeine Allergy Anaphylaxis Verified 11/15/17 07:30 Iodinated Contrast- Oral and Allergy Anaphylaxis Verified 11/15/17 07:30 IV Dye [Iodinated Contrast Media - IV Dye] morphine Allergy Anaphylaxis Verified 11/15/17 07:30 phenobarbital Allergy Anxiety Verified 11/15/17 07:30 promethazine [From Phenergan] Allergy Shakiness Verified 11/15/17 07:30 titanium Allergy See Verified 11/15/17 07:30 Comments Certification: Further, I certify that my clinical findings support that this patient is homebound (i.e. absences from home require considerable and taxing effort and are for medical reasons or voodoo services or infrequently or short duration when for other reasons) because: Homebound Reason: Post-surgery restriction and or conditions limit ability to leave home Attestation: My signature below is to certify that this patient is under my care and that I, or nurse practitioner, or a physician's clerical administrative assistant working with me, has a face-to -face encounter with this patient.
--- NOTE | 2018-02-07 12:35 | Physician Discharge Referral ---
ExtendedCare Referral Info Transfer To: [facility] Provider in Charge: Provider in Charge after Transfer: PCP Institutional Level of Care: Skilled - Diagnosis (1) Status post reverse total replacement of right shoulder Priority: Primary Status: Acute (2) Closed fracture of right proximal humerus Priority: Primary Status: Acute (3) Loosening of bone fixation device Priority: Primary Status: Acute (4) Hypertension Status: Chronic (5) Hyperlipidemia Status: Chronic (6) Asthma Status: Chronic (7) History of hypokalemia Status: Acute (8) History of syncope Status: Acute - Transfer Medications Allergies/Adverse Reactions: 3 Allergy/AdvReac Type Severity Reaction Status Date / Time codeine Allergy Anaphylaxis Verified 11/15/17 07:30 Iodinated Contrast- Oral and Allergy Anaphylaxis Verified 11/15/17 07:30 IV Dye [Iodinated Contrast Media - IV Dye] morphine Allergy Anaphylaxis Verified 11/15/17 07:30 phenobarbital Allergy Anxiety Verified 11/15/17 07:30 promethazine [From Phenergan] Allergy Shakiness Verified 11/15/17 07:30 titanium Allergy See Verified 11/15/17 07:30 Comments - Respiratory Orders None Smoking Cessation: Smoking cessation has been advised. For more information, call the [place] Tobacco Quit Line at 9-725-EPLZ-NOW. - Ancillary Orders May use pressure relief devices daily prn, May go on [place] w/family/respon alliance party w /meds at nurse discretion PRN - Mobility Orders Chair, Ambulate - Rehabiliation Orders Rehab Potential: Good Rehab Orders: Evaluation for Physical Therapy, Evaluation for Occupational Therapy - Treatments List/Other: Opsite dressing, leave intact until first post-operative visit. Zipline/Pickerel in place, plan to remove at post-operative day #14-16. If dressing becomes >50% saturated, contact office, remove dressing and place appropriate dressing in its place. Do not allow for dressing to get wet. Shoulder Precautions x 6 weeks. Apply cold therapy wrap 3-6x/day for 20 minutes at a time. Encourage ambulation throughout the day. Use Incentive spirometer 10x/hour. Elevate affected extremity above heart as tolerated. NWB to affected upper extremity x 6 weeks. Will remove brace at first post-operative appointment. OK to remove during PT/ OT and Home exercises. - Diet Orders Regular CERTIFICATION: I certify that the transfer of the above named patient to an Extended Care Facility is necessary for the continuing treatment of the diagnosis listed. The above information is true and accurate reflection of patient's current condition. Confidential - Redisclosure prohibited without a patient's written consent.
[2018-02-07] MEDS ORDERED: CeFAZolin Syr 2,000MG/20 ML 2,000 MG/20 ML SYRINGE IVPB ONE (12:46)
[2018-02-07] MEDS ORDERED: Ringers Solution, Lactated 1,000 ML IVC SCH ×2 (13:00→16:13)
[2018-02-07] MEDS ORDERED: Ondansetron 4 MG/2 ML VIAL IVP ONE (13:32)
[2018-02-07] MEDS ORDERED: *HR* Labetalol 20 MG/4 ML SYRINGE IVP PRN (13:32)
[2018-02-07] MEDS ORDERED: Albuterol 2.5 MG/3 ML NEBULIZER IH ONE (13:32)
[2018-02-07] MEDS ORDERED: *HR* HYDROmorphone (PF) 1 MG/ML SYRINGE IVP PRN (13:32)
--- NOTE | 2018-02-07 13:32 | Anesthesia Procedures ---
Date of Encounter: 02/07/18 Time of Encounter: 13:20 Procedures: Anesthesia - Nerve Block Procedure Date: 02/07/18 Time: 13:20 Allergies/Adv Reactions: mutiple see chart Pre-op Diagnosis: right soulder replacement /arthritis Surgical Procedure: right shoulder replacement Checklist: Correct Patient Identifier, Correct procedure, History checked Correct side: Right Blood Thinner: No Monitor Applied: EKG, BP, Pulse Oximetry Supplemental Oxygen via Nasal Cannula (L/min): 2 Sedation: Versed (mg): 2 Sedation: Fentanyl (mcg): 100 Indication: Post Op Analgesia Pre-op Neuro Deficits: No Block Type: Supraclavicular (icb/scp) Catheter placed: No Sterile Technique: Yes Ultrasound used: Yes Anatomy identified: Yes Visual spread of Local: Yes Neuro Stimulation: Yes Nerve Stimulator Range: 0.2 - 0.4 mA Blood on Needle Aspiration: No Smooth Injection of Local: Yes Pain with Injection of Local: No Prep: Chlorhexadine Needle: 22 x 50 mm Stimuplex Local: 0.25% Bupivicaine w/Clonidine 20 mcg/cc (icb/scp), Ropivacaine (0.5% + decadron 8mg ) Volume (cc): 30 Number of Attempts: 1 Complications: None/effective block Vitals: Vital Signs - Last 8 Hours Temp Pulse Resp BP Pulse Ox 02/07/18 13:24 72 112/61 98 02/07/18 13:12 68 129/67 96 02/07/18 11:54 99.3 F 68 18 109/63 95 Intake and Output 02/06/18 02/07/18 02/07/18 23:59 07:59 15:59 Other: Weight 88.451 kg Patient Weight 02/07/18 23:59 Weight 88.451 kg Comments: per dr. mcguire request
[2018-02-07] MEDS ORDERED: EPHEDrine 50 MG/ML VIAL ONE (14:40)
--- NOTE | 2018-02-07 15:51 | Orthopedic Operative Note ---
Date of procedure: 02/07/18 Pre-op diagnosis: Right shoulder proximal humerus fracture loss of fixation Post-op diagnosis: same Procedure: Procedure: Total Shoulder Replacment Reverse, right, removal of hardware Estimated blood loss: 200 cc Hardware: Metal and polyethylene replacement: Arthrex medium glenoid baseplate , 2 4.5 screws. 1 6.5 screw, 39+4 glenosphere, 6 humeral stem, poly insert 3 constrained Exam Under anesthesia: Well-healed incision no erythema Procedural Notes: Loss of fixation proximal fragment displacement Operative procedure: The patient was brought to the operating room and placed on the operating room table. After general anesthesia was administered the operative shoulder was examined. Findings were noted. The patient was placed in the modified beachchair position. All pressure points were padded appropriately. And the head was stabilized in the neutral position. The operative extremity was prepped and draped in the sterile surgical fashion. The patient received IV antibiotics prior to skin incision. A standard deltopectoral approach was made to the operative shoulder. Incision was made through the old incision, through the skin and subcutaneous tissue, hemo stasis was obtained with Bovie cautery. Using careful blunt dissection the cephalic vein was identified and mobilized medially. The deltopectoral interval was developed and the clavipectoral fascia was incised. The plate was exposed all screws were removed with the plate. The subscap was released and the humeral head fragment was removed. Anterior and posterior Bankart retractors were placed to expose the glenoid. The glenoid guide was seated and the centering hole was made. It was reamed with the appropriate reamer. The medium baseplate was seated and secured with (2) 4.5 screws and one 6.5 screw. The baseplate was irrigated and dried and the 39+4 Glenosphere was seated and secured with the Mckeon taper. The Mckeon taper was tested and found to be secure the humerus was redislocated and prepared with the diaphyseal reamers, followed by a broaching process up to the appropriate size 6 in the patient's anatomic version. The metaphyseal reamer was then utilized. Trial reduction found the shoulder to be relocatable. Trial components were removed and the 6 stem was impacted in place in the patient's anatomic version. Trial reduction found the shoulder to be relocatable and stable with the appropriate 3 constrained Trial component was removed and the real implant was seated and secured the shoulder was reduced. The shoulder had excellent motion and excellent stability and no evidence of dislocation. The deep tissue was irrigated with pulse irrigation. The deltopectoral interval was closed with a running #1 PDS suture, subcutaneous tissue was irrigated and closed with 0 PDS suture, the skin was closed with skin walter. The patient was placed in a sterile dressing, abduction brace and extubated. The patient was then transferred to the recovery room in stable condition. Anesthesia: GETA Surgeon: Curtis Carslon Was there an library assistant present: No Estimated blood loss (cc): 200 Condition: stable Disposition: PACU
[2018-02-07 16:01] LABS: Hematocrit 32.3 % (35.3-44.9); Hemoglobin 10.6 g/dL (11.5-15.4)
[2018-02-07] MEDS ORDERED: traMADol 50 MG TABLET PO PRN (16:13)
[2018-02-07] MEDS ORDERED: MOM Conc 10 ML UD.LIQ PO PRN (16:13)
[2018-02-07] MEDS ORDERED: Temazepam 15 MG CAPSULE PO PRN (16:13)
[2018-02-07] MEDS ORDERED: Sennosides 8.6 MG TABLET PO PRN (16:13)
[2018-02-07] MEDS ORDERED: *HR* OxyCODONE/APAP 5/325 TABLET PO PRN (16:13)
[2018-02-07] MEDS ORDERED: Naloxone 0.4 MG/ML INJ IVP PRN (16:13)
--- NOTE | 2018-02-07 16:16 | Anesthesia Evaluation Post Op ---
Date of Encounter: 02/07/18 Time of Encounter: 16:15 - Vital Signs Vital Signs: Last Vital Signs Temp 97.8 F 02/07/18 16:04 Pulse 82 02/07/18 16:04 Resp 16 02/07/18 16:04 BP 140/85 02/07/18 16:04 Pulse Ox 95 02/07/18 16:04 - Lungs Lungs: Clear Ascult./Percussion - Airway Airway: Non-obstructed - Cardiovascular Regular Rate - Mental Status Mental Status: Alert & Oriented, Answers Appropriately - Pain Pain Scale: 1 - Nausea Vomiting Nausea Vomiting: Not Present - Hydration Hydration: NPO - Discharge PostOp Status: Transfer Patient to floor
[2018-02-07] MEDS ORDERED: *HR* Enoxaparin 30 MG/0.3 ML SYRINGE SQ SCH (18:00)
[2018-02-07] MEDS: *HR* Enoxaparin 30 MG/0.3 ML SYRINGE SQ SCH (18:57)
[2018-02-08] MEDS: *HR* OxyCODONE Immed Rel 5 MG TABLET PO PRN ×3 (02:37→12:19)
[2018-02-08 05:25] VITALS: BP 122/72
[2018-02-08] MEDS: *HR* Enoxaparin 30 MG/0.3 ML SYRINGE SQ SCH (05:49)
--- NOTE | 2018-02-08 06:57 | Orthopedics Progress Note ---
Date of Encounter: 02/08/18 Time of Encounter: 06:57 - Assessment and Plan (1) Hypertension Current Visit: Yes Status: Chronic Qualifiers: Hypertension type: unspecified Qualified Code(s): I10 - Essential (primary ) hypertension (2) Hyperlipidemia Current Visit: Yes Status: Chronic Qualifiers: Hyperlipidemia type: unspecified Qualified Code(s): E78.5 - Hyperlipidemia , unspecified (3) Asthma Current Visit: Yes Status: Chronic Qualifiers: Asthma severity: unspecified severity Asthma persistence: unspecified Asthma complication type: unspecified Qualified Code(s): J45.909 - Unspecified asthma, uncomplicated (4) History of hypokalemia Current Visit: Yes Status: Acute (5) History of syncope Current Visit: Yes Status: Acute (6) Closed fracture of right proximal humerus Current Visit: Yes Status: Acute Qualifiers: Encounter type: subsequent encounter Fracture morphology: unspecified fracture morphology Fracture healing: with malunion Qualified Code(s): S42.201P - Unspecified fracture of upper end of right humerus, subsequent encounter for fracture with malunion (7) Loosening of bone fixation device Current Visit: Yes Status: Acute Qualifiers: Encounter type: subsequent encounter Qualified Code(s): T84.498D - Other mechanical complication of other internal orthopedic devices, implants and grafts, subsequent encounter (8) Status post reverse total replacement of right shoulder Current Visit: Yes Status: Acute (9) Osteoporosis Current Visit: No Status: Chronic Qualifiers: Osteoporosis type: unspecified Presence of current pathological fracture: unspecified Qualified Code(s): M81.0 - Age-related osteoporosis without current pathological fracture (10) Hypothyroidism Current Visit: No Status: Chronic Qualifiers: Hypothyroidism type: unspecified Qualified Code(s): E03.9 - Hypothyroidism , unspecified (11) Acute blood loss anemia Current Visit: Yes Status: Acute Subjective Interval history: Patient was seen this morning doing well without complaints. Afebrile vital signs stable. Operative extremity: Neurovascularly intact Dressing clean dry and intact Calves nontender Assessment and plan: Continue with postoperative care Hematocrit 28 discharged today Objective Vital signs: Vital Signs Temp Pulse Resp BP Pulse Ox 02/08/18 05:10 98.5 F 91 16 122/72 94 02/08/18 00:02 98.6 F 87 20 131/82 94 02/07/18 18:41 97.9 F 89 15 99/66 95 02/07/18 17:35 98.2 F 82 15 109/64 93 02/07/18 17:00 98.2 F 79 16 125/73 93 02/07/18 16:47 97.8 F 82 16 126/84 93 02/07/18 16:39 97.8 F 82 16 126/84 93 02/07/18 16:04 97.8 F 82 16 140/85 95 02/07/18 15:54 97.8 F 89 16 131/80 95 02/07/18 15:44 97.6 F 84 16 154/70 97 02/07/18 15:34 97.6 F 77 16 115/82 100 02/07/18 13:51 67 110/59 99 02/07/18 13:24 72 112/61 98 02/07/18 13:12 68 129/67 96 02/07/18 11:54 99.3 F 68 18 109/63 95 Intake and Output 02/07/18 02/07/18 02/08/18 15:59 23:59 07:59 Intake Total 580 / 580 240 / 240 Output Total 200 / 200 1200 / 1200 900 / 900 Balance -200 / -200 -620 / -620 -660 / -660 Intake: IV Fluids 100 / 100 Ancef 2,000 MG In 0.9 % Sodium 100 / 100 Chloride 100 ML @ 200 mls/hr IVPB Q8HR [facility] Rx#:[id number] Oral 480 / 480 240 / 240 Output: Urine 1200 / 1200 900 / 900 Estimated Blood Loss 200 / 200 Other: # Voids 1 1 Weight 88.451 kg - Labs CBC & BMP: 02/08/18 03:57 Labs: Abnormal lab results Hgb 9.0 g/dL (11.5-15.4) L D 02/08/18 03:57 Hct 28.0 % (35.3-44.9) L 02/08/18 03:57 - VTE Documentation of Mechanical Device: Intermittent pneumatic compression device Consult Discharge Plan - Plan Referrals: Cristina Woodruff MD [Primary Care Provider] - Prescriptions: Cyclobenzaprine [Flexeril] 10 mg PO TID #30 tablet
[2018-02-08] MEDS ORDERED: VALACYCLOVIR 500 MG PO SCH (09:00)
[2018-02-08] MEDS ORDERED: Cholecalciferol (D-3) 1,000 UNIT TABLET PO SCH (09:00)
[2018-02-08] MEDS ORDERED: Vitamin B Complex/Vit C/Vit E 1 EACH TABLET PO SCH (09:00)
[2018-02-08] MEDS ORDERED: FLUoxetine 20 MG CAPSULE PO SCH (09:00)
[2018-02-08] MEDS ORDERED: Multivit/Ca/Min/Fe/FA 1 TAB TABLET PO SCH (09:00)
[2018-02-08] MEDS ORDERED: Acetaminophen IV 1,000 MG/100 ML INFUS..BTL IVPB PRN (10:00)
[2018-02-08] MEDS ORDERED: Ketorolac 30 MG/ML VIAL IVP PRN (10:00)
== END 2018-02-08 12:52 | disposition home or self-care (01) | DRG 483 ==
LOC: SAMDAY 11:36 → 3NENU 16:16
PROVIDERS: ADMIT Orthopaedic Surgery; ATTEND Orthopaedic Surgery

== ENCOUNTER 2019-11-03 06:41 | Inpatient (IN) ==
[~2019-11-03 06:41] MED LIST: ceFAZolin 1,000 MG, Sodium Chloride IRRigation 1,000 ML IR ONE
[2019-11-03] MEDS ORDERED: CeFAZolin Syr 2,000MG/20 ML 2,000 MG/20 ML SYRINGE IVPB ONE (07:06)
[2019-11-03] MEDS ORDERED: Ringers Solution, Lactated 1,000 ML IVC SCH (07:15)
[2019-11-03] MEDS ORDERED: *HR* FentaNYL (PF) 100 MCG/2 ML VIAL ONE ×3 (07:52→09:45)
[2019-11-03] MEDS ORDERED: *HR* Propofol 200 MG/20 ML VIAL IVP ONE ×2 (07:52→10:19)
[2019-11-03] MEDS ORDERED: *HR* Midazolam HCl 2 MG/2 ML VIAL ONE (07:52)
[2019-11-03] MEDS ORDERED: *HR* HYDROmorphone 2 MG TABLET PO PRN (07:53)
[2019-11-03] MEDS ORDERED: *HR* HYDROmorphone (PF) 1 MG/ML SYRINGE IVP PRN ×2 (07:53→11:41)
[2019-11-03] MEDS ORDERED: *HR* Promethazine 25 MG/ML VIAL IVP PRN (07:53)
[2019-11-03] MEDS ORDERED: Acetaminophen IV 1,000 MG/100 ML INFUS..BTL IVPB ONE (07:53)
[2019-11-03] MEDS ORDERED: Famotidine 20 MG/2 ML VIAL IVP ONE (07:53)
[2019-11-03] MEDS ORDERED: *HR* Labetalol 20 MG/4 ML SYRINGE IVP PRN (07:53)
[2019-11-03] MEDS ORDERED: *HR* OxyCODONE Immed Rel 5 MG TABLET PO PRN (07:53)
[2019-11-03] MEDS ORDERED: Pregabalin 75 MG CAPSULE PO ONE (07:53)
[2019-11-03] MEDS ORDERED: Lidocaine HCL 4 ML Topical Solution (Laryng-O-Jet Kit Sterile Pak) TP ONE (07:54)
[2019-11-03] MEDS ORDERED: Dexamethasone 4 MG/ML VIAL ONE (07:54)
[2019-11-03] MEDS ORDERED: *HR* Succinylcholine 200 MG/10 ML VIAL IVP ONE (07:54)
[2019-11-03] MEDS ORDERED: Ondansetron 4 MG/2 ML VIAL ONE (07:54)
[2019-11-03] MEDS ORDERED: EPHEDrine 50 MG/ML VIAL ONE (08:39)
[2019-11-03] MEDS ORDERED: Neostigmine Methylsulfate 3 MG/3 ML SYRINGE ONE (09:30)
[2019-11-03] MEDS ORDERED: Ondansetron ODT 4 MG TAB.RAPDIS SL PRN (11:41)
[2019-11-03] MEDS ORDERED: Acetaminophen/Aspirin/Caffeine TABLET PO PRN (11:41)
[2019-11-03] MEDS: *HR* OxyCODONE Immed Rel 5 MG TABLET PO PRN (13:22)
[2019-11-03] MEDS: ceFAZolin 2,000 MG in 0.9 % Sodium Chloride 100 ML IVPB SCH (17:35)
[2019-11-03] MEDS: hydrOXYzine pamoate 25 MG CAPSULE PO PRN (21:27)
[2019-11-03] MEDS: Multivit/Ca/Min/Fe/FA 1 TAB TABLET PO SCH (21:27)
[2019-11-03] MEDS: Aspirin Enteric Coated 81 MG Tablet PO SCH (21:27)
[2019-11-03] MEDS: FLUoxetine 20 MG CAPSULE PO SCH (21:28)
[2019-11-03] MEDS: Cholecalciferol (D-3) 1,000 UNIT (25MCG) TABLET PO SCH (21:28)
[2019-11-03] MEDS: Ketorolac 30 MG/ML VIAL IVP PRN (21:28)
[2019-11-04] MEDS: ceFAZolin 2,000 MG in 0.9 % Sodium Chloride 100 ML IVPB SCH ×2 (00:06→08:47)
[2019-11-04] MEDS: *HR* OxyCODONE Immed Rel 5 MG TABLET PO PRN ×2 (00:07→16:02)
[2019-11-04 02:44] LABS: Basophils % 0.1 %; Eosinophils % 0.1 %; Hematocrit 33.1 % (35.3-44.9); Hemoglobin 10.8 g/dL (11.5-15.4); Immature Granulocytes % 0.4 % (0-4); Lymphocytes # 3.7 K/mcL (0.6-4.6); Mean Corpuscular HGB Conc 32.6 g/dL (31.6-35.5); Mean Corpuscular Hemoglobin 32.8 pg (28.0-33.3); Mean Corpuscular Volume 100.6 fL (83.0-100.0); Mean Platelet Volume 11.8 fL (9.4-12.4); Monocytes # 1.5 K/mcL (0.0-1.3); Monocytes % 13.1 %; Neutrophils # 6.2 K/mcL (1.6-8.9); Platelet Count 238 K/mcL (140-400); Red Blood Count 3.29 M/mcL (3.82-4.97); Red Cell Distribution Width 12.8 % (11.5-14.5); Segmented Neutrophils % 54.3 %; White Blood Count 11.4 K/mcL (4.3-11.1)
[2019-11-04 02:55] LABS: BUN/Creatinine Ratio 16 (6-26); Blood Urea Nitrogen 17 mg/dL (8-23); Calcium 8.3 mg/dL (8.6-10.3); Carbon Dioxide 24 mEq/L (23-29); Chloride 105 mEq/L (98-107); Glucose 128 mg/dL (70-105); Osmolality,Calculated 281 (280-300); Sodium 134 mEq/L (136-145); eGFR For African Americans > 60 (> 60); eGFR For Non-African Americans 52 (> 60)
[2019-11-04] MEDS: Ketorolac 30 MG/ML VIAL IVP PRN ×2 (06:43→21:43)
[2019-11-04] MEDS: Cholecalciferol (D-3) 1,000 UNIT (25MCG) TABLET PO SCH ×2 (08:48→21:44)
[2019-11-04] MEDS: Vitamin B Complex/Vit C/Vit E 1 EACH TABLET PO SCH (08:48)
[2019-11-04] MEDS: Multivit/Ca/Min/Fe/FA 1 TAB TABLET PO SCH (21:43)
[2019-11-04] MEDS: FLUoxetine 20 MG CAPSULE PO SCH (21:43)
[2019-11-04] MEDS: Aspirin Enteric Coated 81 MG Tablet PO SCH (21:43)
[2019-11-04] MEDS: hydrOXYzine pamoate 25 MG CAPSULE PO PRN (21:43)
[2019-11-05] MEDS: *HR* OxyCODONE Immed Rel 5 MG TABLET PO PRN ×3 (00:19→22:01)
[2019-11-05] MEDS: Cholecalciferol (D-3) 1,000 UNIT (25MCG) TABLET PO SCH ×2 (08:19→22:00)
[2019-11-05] MEDS: Vitamin B Complex/Vit C/Vit E 1 EACH TABLET PO SCH (08:19)
[2019-11-05] MEDS: Ketorolac 30 MG/ML VIAL IVP PRN (15:58)
[2019-11-05] MEDS: hydrOXYzine pamoate 25 MG CAPSULE PO PRN (22:00)
[2019-11-05] MEDS: Multivit/Ca/Min/Fe/FA 1 TAB TABLET PO SCH (22:00)
[2019-11-05] MEDS: Aspirin Enteric Coated 81 MG Tablet PO SCH (22:01)
[2019-11-05] MEDS: FLUoxetine 20 MG CAPSULE PO SCH (22:01)
[2019-11-06] MEDS: Ketorolac 30 MG/ML VIAL IVP PRN (02:52)
[2019-11-06] MEDS: Cholecalciferol (D-3) 1,000 UNIT (25MCG) TABLET PO SCH (07:40)
[2019-11-06] MEDS: Vitamin B Complex/Vit C/Vit E 1 EACH TABLET PO SCH (07:40)
[2019-11-06 09:36] VITALS: BP 118/63
== END 2019-11-06 10:36 | DRG 42 ==
LOC: SAMDAY 06:41 → 2NNU 10:00
PROVIDERS: ADMIT Surgery Vascular Surgery; ATTEND Surgery Vascular Surgery

== ENCOUNTER 2019-11-25 03:26 | Inpatient (IN) ==
[2019-11-25 04:05] LABS: Basophils # 0.1 K/mcL (0.0-0.2); Basophils % 0.7 %; Eosinophils # 0.6 K/mcL (0.0-0.6); Eosinophils % 3.5 %; Hematocrit 35.7 % (35.3-44.9); Hemoglobin 11.5 g/dL (11.5-15.4); Lymphocytes # 4.2 K/mcL (0.6-4.6); Lymphocytes % 23.5 %; Mean Corpuscular HGB Conc 32.2 g/dL (31.6-35.5); Mean Corpuscular Hemoglobin 32.1 pg (28.0-33.3); Mean Corpuscular Volume 99.7 fL (83.0-100.0); Mean Platelet Volume 11.9 fL (9.4-12.4); Monocytes # 1.6 K/mcL (0.0-1.3); Monocytes % 9.1 %; Neutrophils # 11.2 K/mcL (1.6-8.9); Nucleated Red Blood Cells 0.1 /100 WBC (0); Platelet Count 368 K/mcL (140-400); Red Blood Count 3.58 M/mcL (3.82-4.97); Red Cell Distribution Width 12.6 % (11.5-14.5); Segmented Neutrophils % 62.2 %
[2019-11-25 04:10] LABS: Bilirubin,Urine Moderate (Negative); Blood,Urine Negative (Negative); Clarity,Urine Turbid (Clear); Color,Urine Orange (Yellow); Glucose,Urine (UA) Normal (Normal); Ketones,Urine Trace mg/dL (Negative); Leukocyte Esterase,Urine Moderate (Negative); Nitrite,Urine Negative (Negative); Protein,Urine 30 mg/dL (Neg-Trace); Specific Gravity,Urine > 1.030 (1.010-1.025)
[2019-11-25 04:11] LABS: INR 1.3; Prothrombin Time 15.1 Seconds (9.4-12.1)
[2019-11-25 04:13] LABS: Activated Partial Thrombo Time 35.6 Seconds (26.0-36.0)
[2019-11-25] MEDS ORDERED: 0.9 % Sodium Chloride 1,000 ML IVC ONE ×2 (04:14→07:34)
[2019-11-25 04:29] LABS: Alanine Aminotransferase 13 Units/L (7-52); Albumin 3.7 g/dL (3.5-5.7); Albumin/Globulin Ratio 0.9 (1.1-2.2); Alkaline Phosphatase 126 Units/L (34-104); Aspartate Amino Transferase 33 Units/L (13-39); BUN/Creatinine Ratio 12 (6-26); Bilirubin,Direct 0.1 mg/dL (0.0-0.2); Bilirubin,Indirect 0.2 mg/dL (0.0-1.0); Bilirubin,Total 0.3 mg/dL (0.3-1.0); Blood Urea Nitrogen 28 mg/dL (8-23); Calcium 9.1 mg/dL (8.6-10.3); Carbon Dioxide 18 mEq/L (23-29); Chloride 102 mEq/L (98-107); Ethanol < 10 mg/dL (Less than 10); Globulin 3.9 g/dL (2.4-3.5); Glucose 80 mg/dL (70-105); Osmolality,Calculated 284 (280-300); Potassium 4.3 mEq/L (3.5-5.1); Sodium 135 mEq/L (136-145); Total Protein 7.6 g/dL (6.4-8.9); Troponin I < 0.03 ng/mL (< 0.04); eGFR For African Americans 26 (> 60); eGFR For Non-African Americans 22 (> 60)
[2019-11-25 04:29] LABS: Amphetamine Screen,Urine Negative ng/mL (Cutoff=1000); Barbiturate Screen,Urine Negative ng/mL (Cutoff=200); Benzodiazepines Screen,Urine Negative ng/mL (Cutoff=200); Cannabinoid Screen,Urine Negative ng/mL (Cutoff = 50); Cocaine Screen,Urine Negative ng/mL (Cutoff= 300); Opiate Screen,Urine Positive ng/mL (Cutoff=300); Phencyclidine Screen,Urine Negative ng/mL (Cutoff=25)
[2019-11-25 04:30] LABS: Bacteria,Urine None Seen per hpf (None-Few); Squamous Epithelial Cell,Urine Many per lpf (None-Few); WBC,Urine 50-100 per hpf (0-3)
[2019-11-25] MEDS ORDERED: cefTRIAXone 1,000 MG in Water for inj. (sterile) 10 ML IVP ONE (04:52)
[2019-11-25] MEDS ORDERED: Azithromycin 500 MG in 0.9 % Sodium Chloride 250 ML IVPB ONE (05:22)
[2019-11-25 06:37] LABS: Adenovirus Not Detected (Not Detect); Bordetella Pertussis Not Detected (Not Detect); Chlamydophila pneumoniae Not Detected (Not Detect); Coronavirus 229E Not Detected (Not Detect); Coronavirus HKU1 Not Detected (Not Detect); Coronavirus NL63 Not Detected (Not Detect); Coronavirus OC43 Not Detected (Not Detect); Human Metapneumovirus Not Detected (Not Detect); Human Rhinovirus/Enterovirus Not Detected (Not Detect); Influenza A Subtype 2009 H1 Not Detected (Not Detect); Influenza B Not Detected (Not Detect); Mycoplasma pneumoniae Not Detected (Not Detect); Parainfluenza Virus 1 Not Detected (Not Detect); Parainfluenza Virus 2 Not Detected (Not Detect); Parainfluenza Virus 3 Not Detected (Not Detect); Parainfluenza Virus 4 Not Detected (Not Detect); Respiratory Syncytial Virus Not Detected (Not Detect)
[2019-11-25] MEDS ORDERED: Ondansetron 4 MG/2 ML VIAL IVP PRN (07:22)
[2019-11-25] MEDS ORDERED: cefTRIAXone 1,000 MG in 0.9 % Sodium Chloride Mini Bag 100 ML IVPB ONE (07:28)
[2019-11-25] MEDS ORDERED: 0.9 % Sodium Chloride 500 ML IVC ONE (07:34)
[2019-11-25] MEDS: Pregabalin 50 MG CAPSULE PO SCH ×2 (09:24→21:09)
[2019-11-25] MEDS: Sennosides/Docusate Sodium TABLET PO SCH ×2 (09:24→21:10)
[2019-11-25] MEDS: polyethylene glycoL 3350 17 GM POWD.PACK PO SCH (09:24)
[2019-11-25] MEDS ORDERED: *HR* OxyCODONE Immed Rel 5 MG TABLET PO PRN (17:42)
[2019-11-25] MEDS: hydrOXYzine pamoate 25 MG CAPSULE PO SCH (21:10)
[2019-11-25] MEDS: FLUoxetine 20 MG CAPSULE PO SCH (21:11)
[2019-11-25] MEDS: Aspirin Enteric Coated 81 MG Tablet PO SCH (21:11)
[2019-11-25] MEDS ORDERED: Menthol 9.1 MG LOZENGE PO PRN (22:46)
[2019-11-25 23:35] LABS: Sodium, Urine 16.8 mEq/L
[2019-11-26] MEDS ORDERED: cefTRIAXone 2,000 MG in 0.9 % Sodium Chloride Mini Bag 100 ML IVPB SCH (04:00)
[2019-11-26] MEDS ORDERED: cefTRIAXone 2,000 MG in Water for inj. (sterile) 20 ML IVP SCH (04:00)
[2019-11-26 04:08] LABS: Hematocrit 28.9 % (35.3-44.9); Mean Corpuscular HGB Conc 32.9 g/dL (31.6-35.5); Mean Corpuscular Hemoglobin 31.8 pg (28.0-33.3); Mean Corpuscular Volume 96.7 fL (83.0-100.0); Mean Platelet Volume 11.6 fL (9.4-12.4); Platelet Count 334 K/mcL (140-400); Red Blood Count 2.99 M/mcL (3.82-4.97); Red Cell Distribution Width 13.1 % (11.5-14.5); White Blood Count 13.3 K/mcL (4.3-11.1)
[2019-11-26 04:09] LABS: Hemoglobin 9.5 g/dL (11.5-15.4)
[2019-11-26 04:27] LABS: BUN/Creatinine Ratio 22 (6-26); Blood Urea Nitrogen 24 mg/dL (8-23); Calcium 8.2 mg/dL (8.6-10.3); Carbon Dioxide 17 mEq/L (23-29); Chloride 107 mEq/L (98-107); Glucose 162 mg/dL (70-105); Magnesium 1.9 mg/dL (1.6-2.6); Osmolality,Calculated 286 (280-300); Potassium 3.9 mEq/L (3.5-5.1); Sodium 134 mEq/L (136-145); eGFR For African Americans > 60 (> 60); eGFR For Non-African Americans 52 (> 60)
[2019-11-26] MEDS: polyethylene glycoL 3350 17 GM POWD.PACK PO SCH (10:07)
[2019-11-26] MEDS: Azithromycin 250 MG TABLET PO SCH (10:08)
[2019-11-26] MEDS: Pregabalin 50 MG CAPSULE PO SCH ×2 (10:08→20:21)
[2019-11-26] MEDS: Sennosides/Docusate Sodium TABLET PO SCH ×2 (10:08→20:19)
[2019-11-26] MEDS ORDERED: Furosemide 40 MG/4 ML VIAL IVP ONE (11:07)
[2019-11-26 11:08] LABS: ABG Base Excess -4 mEq/L (-2 to 3); ABG HCO3 20 mEq/L (21-27); ABG Oxygen Saturation 83 % (95-98); ABG PCO2 32 mmHg (35-45); ABG PO2 47 mmHg (85-104); ABG TCO2 21 mEq/L (20-26)
[2019-11-26] MEDS: Piperacillin/Tazobactam 3.375 GM in 0.9 % Sodium Chloride Mini Bag 100 ML IVPB SCH ×3 (11:12→22:55)
[2019-11-26] MEDS ORDERED: *HR* FentaNYL (PF) 100 MCG/2 ML VIAL ONE (12:40)
[2019-11-26] MEDS ORDERED: *HR* FentaNYL (PF) 100 MCG/2 ML VIAL IVP ONE (13:05)
[2019-11-26 13:24] LABS: ABG Base Excess -1 mEq/L (-2 to 3); ABG HCO3 25 mEq/L (21-27); ABG Oxygen Saturation 100 % (95-98); ABG PCO2 45 mmHg (35-45); ABG PH 7.36 pH Units (7.32-7.45); ABG PO2 257 mmHg (85-104); ABG TCO2 26 mEq/L (20-26); Blood Gas Modality ASSIST CONTROL; Blood Gas VT 400 cc
[2019-11-26] MEDS: FentaNYL (PF) 1,000 MCG in 0.9 % Sodium Chloride 80 ML IVC SCH ×2 (13:30→20:34)
[2019-11-26] MEDS ORDERED: Artificial Tears SOLN 15 ML BOTTLE BOTH EYES PRN (16:06)
[2019-11-26] MEDS ORDERED: *HR* Propofol 200 MG/20 ML VIAL IVP ONE (16:42)
[2019-11-26] MEDS ORDERED: *HR* Succinylcholine 200 MG/10 ML VIAL IVP ONE (16:42)
[2019-11-26] MEDS ORDERED: Dextrose Gel 15 GM/37.5 ML TUBE PO PRN ×2 (17:31)
[2019-11-26] MEDS ORDERED: D5% in Water 1,000 ML IVC PRN (17:31)
[2019-11-26] MEDS ORDERED: *HR* Dextrose 50 % in Water (Syg) 50 ML SYRINGE IVP PRN (17:31)
[2019-11-26 18:42] LABS: BUN/Creatinine Ratio 16 (6-26); Blood Urea Nitrogen 12 mg/dL (8-23); Calcium 8.3 mg/dL (8.6-10.3); Carbon Dioxide 22 mEq/L (23-29); Chloride 106 mEq/L (98-107); Glucose 135 mg/dL (70-105); Osmolality,Calculated 290 (280-300); Potassium 3.3 mEq/L (3.5-5.1); Sodium 139 mEq/L (136-145); eGFR For African Americans > 60 (> 60); eGFR For Non-African Americans > 60 (> 60)
[2019-11-26] MEDS: FLUoxetine 20 MG CAPSULE PO SCH (20:18)
[2019-11-26] MEDS: Artificial Tears SOLN 15 ML BOTTLE BOTH EYES SCH ×2 (20:18→22:56)
[2019-11-26] MEDS: Chlorhexidine Rinse 15 ML MOUTHWASH MM SCH (20:19)
[2019-11-26] MEDS: hydrOXYzine pamoate 25 MG CAPSULE PO SCH (20:19)
[2019-11-26] MEDS: Aspirin Enteric Coated 81 MG Tablet PO SCH (20:56)
[2019-11-26] MEDS: Insulin LISPRO 300 UNITS/3 ML VIAL SQ SCH ×2 (20:59→23:00)
[2019-11-27 04:07] LABS: ABG Base Excess 2 mEq/L (-2 to 3); ABG HCO3 26 mEq/L (21-27); ABG Oxygen Saturation 96 % (95-98); ABG PCO2 38 mmHg (35-45); ABG PH 7.44 pH Units (7.32-7.45); ABG PO2 75 mmHg (85-104); ABG TCO2 27 mEq/L (20-26); Blood Gas VT 400 cc
[2019-11-27] MEDS: Insulin LISPRO 300 UNITS/3 ML VIAL SQ SCH ×5 (04:11→21:38)
[2019-11-27] MEDS: FentaNYL (PF) 1,000 MCG in 0.9 % Sodium Chloride 80 ML IVC SCH ×3 (04:12→23:19)
[2019-11-27] MEDS: Artificial Tears SOLN 15 ML BOTTLE BOTH EYES SCH ×5 (04:12→21:50)
[2019-11-27 04:20] LABS: Hematocrit 28.2 % (35.3-44.9); Hemoglobin 9.5 g/dL (11.5-15.4); Mean Corpuscular HGB Conc 33.7 g/dL (31.6-35.5); Mean Corpuscular Hemoglobin 32.3 pg (28.0-33.3); Mean Corpuscular Volume 95.9 fL (83.0-100.0); Mean Platelet Volume 11.4 fL (9.4-12.4); Platelet Count 333 K/mcL (140-400); Red Blood Count 2.94 M/mcL (3.82-4.97); White Blood Count 12.8 K/mcL (4.3-11.1)
[2019-11-27 04:38] LABS: BUN/Creatinine Ratio 21 (6-26); Blood Urea Nitrogen 13 mg/dL (8-23); Calcium 8.1 mg/dL (8.6-10.3); Carbon Dioxide 24 mEq/L (23-29); Chloride 107 mEq/L (98-107); Glucose 115 mg/dL (70-105); Magnesium 1.6 mg/dL (1.6-2.6); Osmolality,Calculated 291 (280-300); Potassium 3.2 mEq/L (3.5-5.1); Sodium 140 mEq/L (136-145); eGFR For African Americans > 60 (> 60); eGFR For Non-African Americans > 60 (> 60)
[2019-11-27] MEDS: Chlorhexidine Rinse 15 ML MOUTHWASH MM SCH ×2 (07:56→21:49)
[2019-11-27] MEDS: Piperacillin/Tazobactam 3.375 GM in 0.9 % Sodium Chloride Mini Bag 100 ML IVPB SCH ×2 (07:56→15:49)
[2019-11-27] MEDS: Levothyroxine Sodium 100 MCG VIAL IVP SCH (07:59)
[2019-11-27] MEDS: Pantoprazole 40 MG VIAL IVP SCH (08:01)
[2019-11-27] MEDS: Sennosides/Docusate Sodium TABLET PO SCH ×2 (08:02→21:50)
[2019-11-27] MEDS: Azithromycin 250 MG TABLET PO SCH (08:02)
[2019-11-27] MEDS: Pregabalin 50 MG CAPSULE PO SCH ×2 (08:03→21:50)
[2019-11-27] MEDS: polyethylene glycoL 3350 17 GM POWD.PACK PO SCH (09:00)
[2019-11-27 14:37] LABS: INR 1.3; Prothrombin Time 14.4 Seconds (9.4-12.1)
[2019-11-27 21:08] LABS: Basophils # 0.1 K/mcL (0.0-0.2); Basophils % 0.7 %; Eosinophils # 1.6 K/mcL (0.0-0.6); Eosinophils % 9.8 %; Hematocrit 32.2 % (35.3-44.9); Hemoglobin 10.6 g/dL (11.5-15.4); Immature Granulocytes % 1.6 % (0-4); Lymphocytes # 3.8 K/mcL (0.6-4.6); Lymphocytes % 23.8 %; Mean Corpuscular HGB Conc 32.9 g/dL (31.6-35.5); Mean Corpuscular Hemoglobin 32.5 pg (28.0-33.3); Mean Corpuscular Volume 98.8 fL (83.0-100.0); Mean Platelet Volume 11.2 fL (9.4-12.4); Monocytes # 1.1 K/mcL (0.0-1.3); Monocytes % 6.8 %; Neutrophils # 9.2 K/mcL (1.6-8.9); Nucleated Red Blood Cells 1.3 /100 WBC (0); Platelet Count 303 K/mcL (140-400); Red Blood Count 3.26 M/mcL (3.82-4.97); Red Cell Distribution Width 13.3 % (11.5-14.5); Segmented Neutrophils % 57.3 %; White Blood Count 16.1 K/mcL (4.3-11.1)
[2019-11-27] MEDS: FLUoxetine 20 MG CAPSULE PO SCH (21:49)
[2019-11-27] MEDS: Aspirin Enteric Coated 81 MG Tablet PO SCH (21:50)
[2019-11-27] MEDS: hydrOXYzine pamoate 25 MG CAPSULE PO SCH (21:50)
[2019-11-28] MEDS: Piperacillin/Tazobactam 3.375 GM in 0.9 % Sodium Chloride Mini Bag 100 ML IVPB SCH ×3 (03:24→17:05)
[2019-11-28] MEDS: Insulin LISPRO 300 UNITS/3 ML VIAL SQ SCH ×6 (03:25→19:49)
[2019-11-28] MEDS: Artificial Tears SOLN 15 ML BOTTLE BOTH EYES SCH ×6 (03:27→20:00)
[2019-11-28 04:36] LABS: ABG Base Excess 2 mEq/L (-2 to 3); ABG HCO3 28 mEq/L (21-27); ABG Oxygen Saturation 98 % (95-98); ABG PCO2 50 mmHg (35-45); ABG PH 7.36 pH Units (7.32-7.45); ABG PO2 104 mmHg (85-104); ABG TCO2 30 mEq/L (20-26); Blood Gas Modality AF; Blood Gas VT 400 cc
[2019-11-28 05:14] LABS: VBG Ionized Calcium 1.17 mmol/L (1.15-1.35)
[2019-11-28 05:16] LABS: Basophils # 0.1 K/mcL (0.0-0.2); Basophils % 0.6 %; Eosinophils # 1.1 K/mcL (0.0-0.6); Eosinophils % 8.5 %; Hematocrit 28.5 % (35.3-44.9); Hemoglobin 9.2 g/dL (11.5-15.4); Immature Granulocytes % 1.7 % (0-4); Lymphocytes # 2.6 K/mcL (0.6-4.6); Lymphocytes % 19.6 %; Mean Corpuscular HGB Conc 32.3 g/dL (31.6-35.5); Mean Corpuscular Hemoglobin 31.7 pg (28.0-33.3); Mean Corpuscular Volume 98.3 fL (83.0-100.0); Monocytes # 0.9 K/mcL (0.0-1.3); Monocytes % 6.5 %; Neutrophils # 8.3 K/mcL (1.6-8.9); Nucleated Red Blood Cells 1.6 /100 WBC (0); Platelet Count 292 K/mcL (140-400); Red Cell Distribution Width 13.2 % (11.5-14.5); Segmented Neutrophils % 63.1 %; White Blood Count 13.1 K/mcL (4.3-11.1)
[2019-11-28 05:30] LABS: BUN/Creatinine Ratio 29 (6-26); Blood Urea Nitrogen 17 mg/dL (8-23); Calcium 8.2 mg/dL (8.6-10.3); Carbon Dioxide 26 mEq/L (23-29); Chloride 106 mEq/L (98-107); Glucose 106 mg/dL (70-105); Magnesium 1.8 mg/dL (1.6-2.6); Osmolality,Calculated 288 (280-300); Phosphorous 3.8 mg/dL (2.7-4.5); Potassium 3.7 mEq/L (3.5-5.1); Sodium 138 mEq/L (136-145); eGFR For African Americans > 60 (> 60); eGFR For Non-African Americans > 60 (> 60)
[2019-11-28] MEDS: polyethylene glycoL 3350 17 GM POWD.PACK PO SCH (07:49)
[2019-11-28] MEDS: Pregabalin 50 MG CAPSULE PO SCH ×2 (07:50→20:01)
[2019-11-28] MEDS: Levothyroxine Sodium 100 MCG VIAL IVP SCH (07:50)
[2019-11-28] MEDS: Chlorhexidine Rinse 15 ML MOUTHWASH MM SCH ×2 (07:50→20:01)
[2019-11-28] MEDS: Azithromycin 250 MG TABLET PO SCH (07:50)
[2019-11-28] MEDS: *HR* Enoxaparin 40 MG/0.4 ML SYRINGE SQ SCH (07:50)
[2019-11-28] MEDS: Pantoprazole 40 MG VIAL IVP SCH (07:50)
[2019-11-28] MEDS: Sennosides/Docusate Sodium TABLET PO SCH ×2 (07:50→20:00)
[2019-11-28] MEDS ORDERED: Furosemide 40 MG/4 ML VIAL IVP ONE (08:17)
[2019-11-28] MEDS: FentaNYL (PF) 1,000 MCG in 0.9 % Sodium Chloride 80 ML IVC SCH ×2 (10:12→18:49)
[2019-11-28] MEDS: hydrOXYzine pamoate 25 MG CAPSULE PO SCH (20:01)
[2019-11-28] MEDS: Aspirin Enteric Coated 81 MG Tablet PO SCH (20:01)
[2019-11-28] MEDS: FLUoxetine 20 MG CAPSULE PO SCH (20:01)
[2019-11-28 20:38] LABS: Magnesium 2.1 mg/dL (1.6-2.6); Potassium 3.7 mEq/L (3.5-5.1)
[2019-11-28] MEDS ORDERED: Potassium Chloride Elixir 20 MEQ/15 ML UDC GTUBE PRN (21:10)
[2019-11-29] MEDS: Insulin LISPRO 300 UNITS/3 ML VIAL SQ SCH ×7 (00:07→23:21)
[2019-11-29] MEDS: Piperacillin/Tazobactam 3.375 GM in 0.9 % Sodium Chloride Mini Bag 100 ML IVPB SCH ×4 (00:17→23:15)
[2019-11-29] MEDS: Artificial Tears SOLN 15 ML BOTTLE BOTH EYES SCH ×7 (00:17→23:15)
[2019-11-29] MEDS: FentaNYL (PF) 1,000 MCG in 0.9 % Sodium Chloride 80 ML IVC SCH ×3 (03:42→19:43)
[2019-11-29 04:07] LABS: Basophils # 0.1 K/mcL (0.0-0.2); Basophils % 0.8 %; Eosinophils # 1.5 K/mcL (0.0-0.6); Eosinophils % 10.4 %; Hematocrit 30.4 % (35.3-44.9); Hemoglobin 9.6 g/dL (11.5-15.4); Immature Granulocytes % 2.7 % (0-4); Lymphocytes # 3.5 K/mcL (0.6-4.6); Lymphocytes % 23.9 %; Mean Corpuscular HGB Conc 31.6 g/dL (31.6-35.5); Mean Corpuscular Hemoglobin 31.3 pg (28.0-33.3); Mean Platelet Volume 10.8 fL (9.4-12.4); Monocytes # 0.9 K/mcL (0.0-1.3); Monocytes % 6.2 %; Neutrophils # 8.2 K/mcL (1.6-8.9); Nucleated Red Blood Cells 1.8 /100 WBC (0); Platelet Count 295 K/mcL (140-400); Red Blood Count 3.07 M/mcL (3.82-4.97); Red Cell Distribution Width 13.7 % (11.5-14.5); White Blood Count 14.6 K/mcL (4.3-11.1)
[2019-11-29 04:08] LABS: VBG Ionized Calcium 1.17 mmol/L (1.15-1.35)
[2019-11-29 04:09] LABS: ABG Base Excess 4 mEq/L (-2 to 3); ABG HCO3 31 mEq/L (21-27); ABG Oxygen Saturation 96 % (95-98); ABG PCO2 60 mmHg (35-45); ABG PH 7.32 pH Units (7.32-7.45); ABG PO2 92 mmHg (85-104); ABG TCO2 33 mEq/L (20-26); Blood Gas Modality AF; Blood Gas VT 400 cc
[2019-11-29 04:26] LABS: BUN/Creatinine Ratio 31 (6-26); Blood Urea Nitrogen 18 mg/dL (8-23); Calcium 8.4 mg/dL (8.6-10.3); Carbon Dioxide 29 mEq/L (23-29); Chloride 104 mEq/L (98-107); Glucose 129 mg/dL (70-105); Magnesium 2.1 mg/dL (1.6-2.6); Osmolality,Calculated 292 (280-300); Potassium 4.2 mEq/L (3.5-5.1); Sodium 139 mEq/L (136-145); eGFR For African Americans > 60 (> 60); eGFR For Non-African Americans > 60 (> 60)
[2019-11-29] MEDS: *HR* Enoxaparin 40 MG/0.4 ML SYRINGE SQ SCH (06:27)
[2019-11-29] MEDS: Pregabalin 50 MG CAPSULE PO SCH ×2 (07:57→19:40)
[2019-11-29] MEDS: Levothyroxine Sodium 100 MCG VIAL IVP SCH (07:57)
[2019-11-29] MEDS: Sennosides/Docusate Sodium TABLET PO SCH ×2 (07:57→19:41)
[2019-11-29] MEDS: Pantoprazole 40 MG VIAL IVP SCH (07:57)
[2019-11-29] MEDS: polyethylene glycoL 3350 17 GM POWD.PACK PO SCH (08:00)
[2019-11-29] MEDS: Chlorhexidine Rinse 15 ML MOUTHWASH MM SCH ×2 (08:00→19:40)
[2019-11-29 16:02] LABS: Appearance of Body Fluid Cloudy (Clear); Volume of Body Fluid 13 mL
[2019-11-29] MEDS: hydrOXYzine pamoate 25 MG CAPSULE PO SCH (19:40)
[2019-11-29] MEDS: FLUoxetine 20 MG CAPSULE PO SCH (19:40)
[2019-11-29] MEDS: Aspirin Enteric Coated 81 MG Tablet PO SCH (19:41)
[2019-11-30] MEDS: Insulin LISPRO 300 UNITS/3 ML VIAL SQ SCH ×5 (03:39→20:01)
[2019-11-30] MEDS: Artificial Tears SOLN 15 ML BOTTLE BOTH EYES SCH ×5 (03:39→19:59)
[2019-11-30 04:41] LABS: ABG Base Excess 5 mEq/L (-2 to 3); ABG HCO3 33 mEq/L (21-27); ABG Oxygen Saturation 90 % (95-98); ABG PCO2 69 mmHg (35-45); ABG PH 7.29 pH Units (7.32-7.45); ABG PO2 68 mmHg (85-104); ABG TCO2 35 mEq/L (20-26); Blood Gas Modality AF; Blood Gas VT 400 cc
[2019-11-30] MEDS: FentaNYL (PF) 1,000 MCG in 0.9 % Sodium Chloride 80 ML IVC SCH ×2 (05:08→16:39)
[2019-11-30] MEDS: *HR* Enoxaparin 40 MG/0.4 ML SYRINGE SQ SCH (05:45)
[2019-11-30 05:53] LABS: Basophils # 0.2 K/mcL (0.0-0.2); Basophils % 0.9 %; Eosinophils # 1.2 K/mcL (0.0-0.6); Hemoglobin 9.6 g/dL (11.5-15.4); Immature Granulocytes % 3.3 % (0-4); Lymphocytes # 2.9 K/mcL (0.6-4.6); Lymphocytes % 16.9 %; Mean Corpuscular Hemoglobin 31.5 pg (28.0-33.3); Mean Corpuscular Volume 101.6 fL (83.0-100.0); Mean Platelet Volume 11.3 fL (9.4-12.4); Monocytes # 1.2 K/mcL (0.0-1.3); Neutrophils # 11.3 K/mcL (1.6-8.9); Nucleated Red Blood Cells 2.2 /100 WBC (0); Platelet Count 254 K/mcL (140-400); Red Blood Count 3.05 M/mcL (3.82-4.97); Red Cell Distribution Width 13.9 % (11.5-14.5); Segmented Neutrophils % 64.9 %; White Blood Count 17.4 K/mcL (4.3-11.1)
[2019-11-30 06:46] LABS: Alanine Aminotransferase 7 Units/L (7-52); Albumin 2.7 g/dL (3.5-5.7); Albumin/Globulin Ratio 0.8 (1.1-2.2); Alkaline Phosphatase 106 Units/L (34-104); Aspartate Amino Transferase 21 Units/L (13-39); BUN/Creatinine Ratio 39 (6-26); Bilirubin,Total 0.3 mg/dL (0.3-1.0); Blood Urea Nitrogen 18 mg/dL (8-23); Calcium 8.7 mg/dL (8.6-10.3); Carbon Dioxide 23 mEq/L (23-29); Chloride 106 mEq/L (98-107); Globulin 3.2 g/dL (2.4-3.5); Glucose 117 mg/dL (70-105); Magnesium 2.1 mg/dL (1.6-2.6); Osmolality,Calculated 295 (280-300); Phosphorous 3.3 mg/dL (2.7-4.5); Potassium 4.3 mEq/L (3.5-5.1); Sodium 141 mEq/L (136-145); Total Protein 5.9 g/dL (6.4-8.9); eGFR For African Americans > 60 (> 60); eGFR For Non-African Americans > 60 (> 60)
[2019-11-30] MEDS: Sennosides/Docusate Sodium TABLET PO SCH ×2 (07:39→19:58)
[2019-11-30] MEDS: Levothyroxine Sodium 100 MCG VIAL IVP SCH (07:40)
[2019-11-30] MEDS: Chlorhexidine Rinse 15 ML MOUTHWASH MM SCH ×2 (07:40→19:58)
[2019-11-30] MEDS: Pregabalin 50 MG CAPSULE PO SCH ×2 (07:40→19:59)
[2019-11-30] MEDS: Pantoprazole 40 MG VIAL IVP SCH (07:43)
[2019-11-30] MEDS: Piperacillin/Tazobactam 3.375 GM in 0.9 % Sodium Chloride Mini Bag 100 ML IVPB SCH ×2 (07:46→16:37)
[2019-11-30] MEDS: polyethylene glycoL 3350 17 GM POWD.PACK PO SCH (08:04)
[2019-11-30] MEDS: Doxycycline 100 MG in 0.9 % Sodium Chloride Mini Bag 100 ML IVPB SCH ×2 (10:22→18:04)
[2019-11-30] MEDS: Potassium Phosphate 44 MEQ in 0.9 % Sodium Chloride 250 ML IVPB PRN (11:53)
[2019-11-30] MEDS: Aspirin Enteric Coated 81 MG Tablet PO SCH (19:59)
[2019-11-30] MEDS: FLUoxetine 20 MG CAPSULE PO SCH (19:59)
[2019-11-30] MEDS: hydrOXYzine pamoate 25 MG CAPSULE PO SCH (19:59)
[2019-12-01] MEDS: Insulin LISPRO 300 UNITS/3 ML VIAL SQ SCH ×6 (00:12→20:49)
[2019-12-01] MEDS: Piperacillin/Tazobactam 3.375 GM in 0.9 % Sodium Chloride Mini Bag 100 ML IVPB SCH ×3 (00:12→15:45)
[2019-12-01] MEDS: Chlorhexidine Rinse 15 ML MOUTHWASH MM SCH ×3 (00:13→20:49)
[2019-12-01] MEDS: Artificial Tears SOLN 15 ML BOTTLE BOTH EYES SCH ×6 (00:13→20:49)
[2019-12-01] MEDS: FentaNYL (PF) 1,000 MCG in 0.9 % Sodium Chloride 80 ML IVC SCH ×2 (00:14→13:37)
[2019-12-01 04:18] LABS: Basophils % 0.6 %; Eosinophils % 6.3 %; Red Cell Distribution Width 13.9 % (11.5-14.5)
[2019-12-01 04:18] LABS: ABG Base Excess 12 mEq/L (-2 to 3); ABG HCO3 39 mEq/L (21-27); ABG Oxygen Saturation 92 % (95-98); ABG PCO2 65 mmHg (35-45); ABG PH 7.39 pH Units (7.32-7.45); ABG PO2 68 mmHg (85-104); ABG TCO2 41 mEq/L (20-26); Blood Gas Modality VC; Blood Gas VT 400 cc
[2019-12-01 04:21] LABS: Basophils # 0.1 K/mcL (0.0-0.2); Eosinophils # 0.9 K/mcL (0.0-0.6); Hematocrit 30.2 % (35.3-44.9); Hemoglobin 9.4 g/dL (11.5-15.4); Immature Granulocytes % 2.9 % (0-4); Immature Platelets 5.6 % (1.1-6.1); Lymphocytes # 1.8 K/mcL (0.6-4.6); Lymphocytes % 13.1 %; Mean Corpuscular HGB Conc 31.1 g/dL (31.6-35.5); Mean Corpuscular Hemoglobin 31.4 pg (28.0-33.3); Mean Platelet Volume 11.2 fL (9.4-12.4); Monocytes # 1.1 K/mcL (0.0-1.3); Neutrophils # 9.7 K/mcL (1.6-8.9); Platelet Count 249 K/mcL (140-400); Red Blood Count 2.99 M/mcL (3.82-4.97); Segmented Neutrophils % 69.1 %
[2019-12-01] MEDS: *HR* Heparin 5,000 UNIT/ML VIAL SQ SCH ×2 (05:09→17:43)
[2019-12-01] MEDS: Doxycycline 100 MG in 0.9 % Sodium Chloride Mini Bag 100 ML IVPB SCH ×2 (05:09→17:44)
[2019-12-01 06:02] LABS: BUN/Creatinine Ratio 80 (6-26); Blood Urea Nitrogen 32 mg/dL (8-23); Calcium 8.8 mg/dL (8.6-10.3); Carbon Dioxide 36 mEq/L (23-29); Chloride 107 mEq/L (98-107); Glucose 139 mg/dL (70-105); Osmolality,Calculated 309 (280-300); Phosphorous 2.7 mg/dL (2.7-4.5); Potassium 4.2 mEq/L (3.5-5.1); Sodium 145 mEq/L (136-145); eGFR For African Americans > 60 (> 60); eGFR For Non-African Americans > 60 (> 60)
[2019-12-01] MEDS ORDERED: Potassium Chloride Elixir 20 MEQ/15 ML UDC GTUBE ONE (08:03)
[2019-12-01] MEDS: Sennosides/Docusate Sodium TABLET PO SCH ×2 (08:35→20:48)
[2019-12-01] MEDS: Pregabalin 50 MG CAPSULE PO SCH ×2 (08:35→20:47)
[2019-12-01] MEDS: Pantoprazole 40 MG VIAL IVP SCH (08:36)
[2019-12-01] MEDS: Furosemide 40 MG/4 ML VIAL IVP SCH ×2 (08:43→20:48)
[2019-12-01] MEDS: Acetaminophen 325 MG TABLET PO PRN (09:19)
[2019-12-01] MEDS: Potassium Phosphate 44 MEQ in 0.9 % Sodium Chloride 250 ML IVPB PRN (09:36)
[2019-12-01 12:25] LABS: Bilirubin,Urine Negative (Negative); Blood,Urine Negative (Negative); Clarity,Urine Clear (Clear); Color,Urine Yellow (Yellow); Glucose,Urine (UA) Normal (Normal); Ketones,Urine Negative (Negative); Leukocyte Esterase,Urine Negative (Negative); Nitrite,Urine Negative (Negative); Protein,Urine Negative (Neg-Trace); Specific Gravity,Urine 1.019 (1.010-1.025); Urobilinogen,Urine Normal (Normal)
[2019-12-01] MEDS: Albuterol 2.5 MG/3 ML NEBULIZER IH SCH ×2 (19:36→23:28)
[2019-12-01] MEDS: Acetylcysteine 10% 2 ML INHSOL IH SCH ×2 (19:37→23:28)
[2019-12-01] MEDS: FLUoxetine 20 MG CAPSULE PO SCH (20:47)
[2019-12-01] MEDS: Aspirin Enteric Coated 81 MG Tablet PO SCH (20:48)
[2019-12-02] MEDS: Piperacillin/Tazobactam 3.375 GM in 0.9 % Sodium Chloride Mini Bag 100 ML IVPB SCH ×4 (00:20→23:40)
[2019-12-02] MEDS: Artificial Tears SOLN 15 ML BOTTLE BOTH EYES SCH ×7 (00:21→23:30)
[2019-12-02] MEDS: Insulin LISPRO 300 UNITS/3 ML VIAL SQ SCH ×7 (00:21→23:38)
[2019-12-02] MEDS: FentaNYL (PF) 1,000 MCG in 0.9 % Sodium Chloride 80 ML IVC SCH ×2 (01:11→17:37)
[2019-12-02] MEDS: Albuterol 2.5 MG/3 ML NEBULIZER IH SCH ×6 (03:08→23:26)
[2019-12-02] MEDS: Acetylcysteine 10% 2 ML INHSOL IH SCH ×6 (03:18→23:26)
[2019-12-02 04:57] LABS: ABG Base Excess 19 mEq/L (-2 to 3); ABG HCO3 46 mEq/L (21-27); ABG Oxygen Saturation 95 % (95-98); ABG PCO2 69 mmHg (35-45); ABG PH 7.44 pH Units (7.32-7.45); ABG PO2 75 mmHg (85-104); ABG TCO2 49 mEq/L (20-26); Blood Gas Modality AF; Blood Gas VT 400 cc
[2019-12-02] MEDS: Doxycycline 100 MG in 0.9 % Sodium Chloride Mini Bag 100 ML IVPB SCH ×2 (05:56→17:30)
[2019-12-02] MEDS: *HR* Heparin 5,000 UNIT/ML VIAL SQ SCH ×2 (05:57→17:31)
[2019-12-02 05:59] LABS: Basophils # 0.1 K/mcL (0.0-0.2); Basophils % 0.7 %; Eosinophils # 0.2 K/mcL (0.0-0.6); Hematocrit 31.8 % (35.3-44.9); Hemoglobin 10.1 g/dL (11.5-15.4); Immature Granulocytes % 2.9 % (0-4); Lymphocytes # 3.3 K/mcL (0.6-4.6); Lymphocytes % 18.4 %; Mean Corpuscular HGB Conc 31.8 g/dL (31.6-35.5); Mean Corpuscular Hemoglobin 31.8 pg (28.0-33.3); Mean Platelet Volume 11.4 fL (9.4-12.4); Monocytes # 2.1 K/mcL (0.0-1.3); Monocytes % 11.8 %; Neutrophils # 11.6 K/mcL (1.6-8.9); Nucleated Red Blood Cells 1.4 /100 WBC (0); Platelet Count 349 K/mcL (140-400); Red Blood Count 3.18 M/mcL (3.82-4.97); Red Cell Distribution Width 13.7 % (11.5-14.5); Segmented Neutrophils % 65.2 %; White Blood Count 17.8 K/mcL (4.3-11.1)
[2019-12-02 06:20] LABS: Alanine Aminotransferase 9 Units/L (7-52); Albumin 2.7 g/dL (3.5-5.7); Albumin/Globulin Ratio 0.8 (1.1-2.2); Alkaline Phosphatase 89 Units/L (34-104); Aspartate Amino Transferase 22 Units/L (13-39); BUN/Creatinine Ratio 78 (6-26); Bilirubin,Total 0.2 mg/dL (0.3-1.0); Blood Urea Nitrogen 36 mg/dL (8-23); Calcium 8.9 mg/dL (8.6-10.3); Carbon Dioxide 39 mEq/L (23-29); Chloride 100 mEq/L (98-107); Globulin 3.4 g/dL (2.4-3.5); Glucose 154 mg/dL (70-105); Magnesium 1.8 mg/dL (1.6-2.6); Osmolality,Calculated 313 (280-300); Phosphorous 3.7 mg/dL (2.7-4.5); Potassium 3.7 mEq/L (3.5-5.1); Sodium 146 mEq/L (136-145); Total Protein 6.1 g/dL (6.4-8.9); eGFR For African Americans > 60 (> 60); eGFR For Non-African Americans > 60 (> 60)
[2019-12-02] MEDS: Chlorhexidine Rinse 15 ML MOUTHWASH MM SCH ×2 (07:32→19:47)
[2019-12-02] MEDS: Pantoprazole 40 MG VIAL IVP SCH (07:32)
[2019-12-02] MEDS: Furosemide 40 MG/4 ML VIAL IVP SCH ×2 (07:32→19:43)
[2019-12-02] MEDS: Pregabalin 50 MG CAPSULE PO SCH ×2 (07:33→19:44)
[2019-12-02] MEDS: Sennosides/Docusate Sodium TABLET PO SCH ×2 (07:33→19:44)
[2019-12-02 11:42] LABS: Adenovirus Not Detected (Not Detect); Bordetella Pertussis Not Detected (Not Detect); Chlamydophila pneumoniae Not Detected (Not Detect); Coronavirus 229E Not Detected (Not Detect); Coronavirus HKU1 Not Detected (Not Detect); Coronavirus NL63 Not Detected (Not Detect); Coronavirus OC43 Not Detected (Not Detect); Human Metapneumovirus Not Detected (Not Detect); Human Rhinovirus/Enterovirus Not Detected (Not Detect); Influenza A Subtype 2009 H1 Not Detected (Not Detect); Influenza B Not Detected (Not Detect); Mycoplasma pneumoniae Not Detected (Not Detect); Parainfluenza Virus 1 Not Detected (Not Detect); Parainfluenza Virus 2 Not Detected (Not Detect); Parainfluenza Virus 3 Not Detected (Not Detect); Parainfluenza Virus 4 Not Detected (Not Detect); Respiratory Syncytial Virus Not Detected (Not Detect)
[2019-12-02 15:37] LABS: Magnesium 2.1 mg/dL (1.6-2.6); Potassium 3.8 mEq/L (3.5-5.1)
[2019-12-02 15:39] LABS: Lactate Dehydrogenase 251 Units/L (140-271)
[2019-12-02 15:57] LABS: Ferritin 51 ng/mL (10-120)
[2019-12-02] MEDS: Potassium Chloride Elixir 20 MEQ/15 ML UDC GTUBE PRN (17:32)
[2019-12-02] MEDS: FLUoxetine 20 MG CAPSULE PO SCH (19:43)
[2019-12-02] MEDS: Aspirin Enteric Coated 81 MG Tablet PO SCH (19:44)
[2019-12-03] MEDS: Acetylcysteine 10% 2 ML INHSOL IH SCH ×6 (03:23→23:30)
[2019-12-03] MEDS: Albuterol 2.5 MG/3 ML NEBULIZER IH SCH ×6 (03:23→23:30)
[2019-12-03] MEDS: Insulin LISPRO 300 UNITS/3 ML VIAL SQ SCH ×6 (03:24→23:11)
[2019-12-03] MEDS: Artificial Tears SOLN 15 ML BOTTLE BOTH EYES SCH ×6 (03:25→23:08)
[2019-12-03 04:55] LABS: Basophils # 0.1 K/mcL (0.0-0.2); Basophils % 0.8 %; Eosinophils # 0.5 K/mcL (0.0-0.6); Eosinophils % 3.4 %; Hematocrit 33.2 % (35.3-44.9); Hemoglobin 10.2 g/dL (11.5-15.4); Immature Granulocytes % 2.3 % (0-4); Lymphocytes # 3.2 K/mcL (0.6-4.6); Lymphocytes % 22.7 %; Mean Corpuscular HGB Conc 30.7 g/dL (31.6-35.5); Mean Corpuscular Hemoglobin 30.8 pg (28.0-33.3); Mean Corpuscular Volume 100.3 fL (83.0-100.0); Mean Platelet Volume 11.3 fL (9.4-12.4); Monocytes % 14.1 %; Neutrophils # 7.9 K/mcL (1.6-8.9); Nucleated Red Blood Cells 1.4 /100 WBC (0); Platelet Count 388 K/mcL (140-400); Red Blood Count 3.31 M/mcL (3.82-4.97); Red Cell Distribution Width 13.9 % (11.5-14.5); Segmented Neutrophils % 56.7 %; White Blood Count 13.9 K/mcL (4.3-11.1)
[2019-12-03 05:01] LABS: ABG Base Excess 16 mEq/L (-2 to 3); ABG HCO3 45 mEq/L (21-27); ABG Oxygen Saturation 90 % (95-98); ABG PCO2 85 mmHg (35-45); ABG PH 7.33 pH Units (7.32-7.45); ABG PO2 67 mmHg (85-104); ABG TCO2 48 mEq/L (20-26); Blood Gas Modality VC; Blood Gas VT 400 cc
[2019-12-03 05:14] LABS: Phosphorous 3.3 mg/dL (2.7-4.5)
[2019-12-03 05:18] LABS: BUN/Creatinine Ratio 80 (6-26); Blood Urea Nitrogen 33 mg/dL (8-23); Carbon Dioxide 38 mEq/L (23-29); Chloride 99 mEq/L (98-107); Glucose 150 mg/dL (70-105); Osmolality,Calculated 308 (280-300); Potassium 3.6 mEq/L (3.5-5.1); Sodium 144 mEq/L (136-145); eGFR For African Americans > 60 (> 60); eGFR For Non-African Americans > 60 (> 60)
[2019-12-03] MEDS: Doxycycline 100 MG in 0.9 % Sodium Chloride Mini Bag 100 ML IVPB SCH (05:25)
[2019-12-03] MEDS: Calcium Gluconate 1gm/50mL 1 GM/50 ML BAG IVPB PRN ×2 (05:26→11:33)
[2019-12-03] MEDS: *HR* Heparin 5,000 UNIT/ML VIAL SQ SCH ×2 (05:26→17:22)
[2019-12-03] MEDS: Potassium Chloride Elixir 20 MEQ/15 ML UDC GTUBE PRN (05:42)
[2019-12-03] MEDS: FentaNYL (PF) 1,000 MCG in 0.9 % Sodium Chloride 80 ML IVC SCH ×2 (06:08→13:52)
[2019-12-03] MEDS: Furosemide 40 MG/4 ML VIAL IVP SCH ×2 (08:07→21:24)
[2019-12-03] MEDS: Pantoprazole 40 MG VIAL IVP SCH (08:07)
[2019-12-03] MEDS: Piperacillin/Tazobactam 3.375 GM in 0.9 % Sodium Chloride Mini Bag 100 ML IVPB SCH ×3 (08:07→23:08)
[2019-12-03] MEDS: Sennosides/Docusate Sodium TABLET PO SCH ×2 (08:08→21:25)
[2019-12-03] MEDS: Pregabalin 50 MG CAPSULE PO SCH ×2 (08:08→21:24)
[2019-12-03] MEDS: Chlorhexidine Rinse 15 ML MOUTHWASH MM SCH ×2 (08:32→21:24)
[2019-12-03 10:27] LABS: VBG Ionized Calcium 1.05 mmol/L (1.15-1.35)
[2019-12-03] MEDS: Dexmedetomidine HCl 400 MCG/100 ML MLS IVC SCH (15:36)
[2019-12-03] MEDS: Aspirin Enteric Coated 81 MG Tablet PO SCH (21:23)
[2019-12-03] MEDS: FLUoxetine 20 MG CAPSULE PO SCH (21:24)
[2019-12-03] MEDS: Doxycycline 100 MG CAPSULE PO SCH (21:24)
[2019-12-04] MEDS: FentaNYL (PF) 1,000 MCG in 0.9 % Sodium Chloride 80 ML IVC SCH (01:20)
[2019-12-04] MEDS: Dexmedetomidine HCl 400 MCG/100 ML MLS IVC SCH ×2 (01:21→18:44)
[2019-12-04] MEDS: Albuterol 2.5 MG/3 ML NEBULIZER IH SCH ×6 (03:17→23:23)
[2019-12-04] MEDS: Acetylcysteine 10% 2 ML INHSOL IH SCH ×6 (03:18→23:23)
[2019-12-04] MEDS: Artificial Tears SOLN 15 ML BOTTLE BOTH EYES SCH ×6 (04:05→23:21)
[2019-12-04] MEDS: Insulin LISPRO 300 UNITS/3 ML VIAL SQ SCH ×6 (04:06→23:26)
[2019-12-04 04:57] LABS: Mean Corpuscular HGB Conc 30.4 g/dL (31.6-35.5); Mean Corpuscular Hemoglobin 30.6 pg (28.0-33.3); Mean Corpuscular Volume 100.6 fL (83.0-100.0); Mean Platelet Volume 12.1 fL (9.4-12.4); Monocytes % 13.6 %
[2019-12-04 04:59] LABS: Basophils # 0.1 K/mcL (0.0-0.2); Eosinophils # 0.6 K/mcL (0.0-0.6); Hematocrit 33.9 % (35.3-44.9); Hemoglobin 10.3 g/dL (11.5-15.4); Immature Granulocytes % 1.9 % (0-4); Immature Platelets 12.5 % (1.1-6.1); Lymphocytes # 3.1 K/mcL (0.6-4.6); Lymphocytes % 26.2 %; Monocytes # 1.6 K/mcL (0.0-1.3); Neutrophils # 6.1 K/mcL (1.6-8.9); Nucleated Red Blood Cells 1.4 /100 WBC (0); Platelet Count 282 K/mcL (140-400); Red Blood Count 3.37 M/mcL (3.82-4.97); Segmented Neutrophils % 52.3 %; White Blood Count 11.7 K/mcL (4.3-11.1)
[2019-12-04 04:59] LABS: ABG Base Excess 17 mEq/L (-2 to 3); ABG HCO3 43 mEq/L (21-27); ABG Oxygen Saturation 97 % (95-98); ABG PCO2 62 mmHg (35-45); ABG PH 7.45 pH Units (7.32-7.45); ABG PO2 88 mmHg (85-104); ABG TCO2 45 mEq/L (20-26); Blood Gas Modality VC; Blood Gas VT 450 cc
[2019-12-04 05:18] LABS: Magnesium 1.8 mg/dL (1.6-2.6); Phosphorous 3.6 mg/dL (2.7-4.5)
[2019-12-04 05:24] LABS: Alanine Aminotransferase 15 Units/L (7-52); Albumin 2.6 g/dL (3.5-5.7); Albumin/Globulin Ratio 0.7 (1.1-2.2); Alkaline Phosphatase 71 Units/L (34-104); Aspartate Amino Transferase 30 Units/L (13-39); BUN/Creatinine Ratio 84 (6-26); Bilirubin,Total 0.3 mg/dL (0.3-1.0); Blood Urea Nitrogen 38 mg/dL (8-23); Carbon Dioxide 41 mEq/L (23-29); Chloride 99 mEq/L (98-107); Globulin 3.5 g/dL (2.4-3.5); Glucose 146 mg/dL (70-105); Osmolality,Calculated 312 (280-300); Potassium 3.2 mEq/L (3.5-5.1); Sodium 145 mEq/L (136-145); Total Protein 6.1 g/dL (6.4-8.9); eGFR For African Americans > 60 (> 60); eGFR For Non-African Americans > 60 (> 60)
[2019-12-04] MEDS: *HR* Heparin 5,000 UNIT/ML VIAL SQ SCH ×2 (05:30→18:41)
[2019-12-04] MEDS: Famotidine 20 MG/2 ML VIAL IVP SCH ×2 (05:30→18:42)
[2019-12-04] MEDS: Chlorhexidine Rinse 15 ML MOUTHWASH MM SCH ×2 (08:21→20:08)
[2019-12-04] MEDS: Piperacillin/Tazobactam 3.375 GM in 0.9 % Sodium Chloride Mini Bag 100 ML IVPB SCH ×3 (08:22→23:19)
[2019-12-04] MEDS: Furosemide 40 MG/4 ML VIAL IVP SCH ×2 (08:22→20:09)
[2019-12-04] MEDS: Pregabalin 50 MG CAPSULE PO SCH ×2 (08:23→20:09)
[2019-12-04] MEDS: Sennosides/Docusate Sodium TABLET PO SCH ×2 (08:23→20:10)
[2019-12-04] MEDS: Doxycycline 100 MG CAPSULE PO SCH ×2 (08:23→20:09)
[2019-12-04] MEDS ORDERED: *HR* FentaNYL PATCH 50 MCG PATCH TD SCH (11:00)
[2019-12-04] MEDS: FLUoxetine 20 MG CAPSULE PO SCH (20:08)
[2019-12-04] MEDS: Aspirin Enteric Coated 81 MG Tablet PO SCH (20:10)
[2019-12-05] MEDS: Albuterol 2.5 MG/3 ML NEBULIZER IH SCH ×5 (03:34→19:39)
[2019-12-05] MEDS: Artificial Tears SOLN 15 ML BOTTLE BOTH EYES SCH ×5 (03:34→19:46)
[2019-12-05] MEDS: Acetylcysteine 10% 2 ML INHSOL IH SCH ×5 (03:35→19:39)
[2019-12-05] MEDS: Insulin LISPRO 300 UNITS/3 ML VIAL SQ SCH ×5 (03:35→20:08)
[2019-12-05 04:46] LABS: ABG Base Excess 9 mEq/L (-2 to 3); ABG HCO3 35 mEq/L (21-27); ABG Oxygen Saturation 96 % (95-98); ABG PCO2 52 mmHg (35-45); ABG PH 7.43 pH Units (7.32-7.45); ABG PO2 85 mmHg (85-104); ABG TCO2 37 mEq/L (20-26); Blood Gas Modality AF; Blood Gas VT 450 cc
[2019-12-05] MEDS: Famotidine 20 MG/2 ML VIAL IVP SCH ×2 (05:31→17:10)
[2019-12-05] MEDS: *HR* Heparin 5,000 UNIT/ML VIAL SQ SCH ×2 (05:31→17:09)
[2019-12-05 06:09] LABS: Basophils # 0.2 K/mcL (0.0-0.2); Basophils % 0.9 %; Eosinophils % 5.6 %; Hematocrit 35.2 % (35.3-44.9); Hemoglobin 11.2 g/dL (11.5-15.4); Immature Granulocytes % 1.4 % (0-4); Lymphocytes # 5.1 K/mcL (0.6-4.6); Lymphocytes % 29.5 %; Mean Corpuscular HGB Conc 31.8 g/dL (31.6-35.5); Mean Corpuscular Hemoglobin 30.9 pg (28.0-33.3); Mean Corpuscular Volume 97.2 fL (83.0-100.0); Mean Platelet Volume 12.2 fL (9.4-12.4); Monocytes # 2.9 K/mcL (0.0-1.3); Monocytes % 16.5 %; Nucleated Red Blood Cells 0.7 /100 WBC (0); Platelet Count 494 K/mcL (140-400); Red Blood Count 3.62 M/mcL (3.82-4.97); Red Cell Distribution Width 13.9 % (11.5-14.5); Segmented Neutrophils % 46.1 %; White Blood Count 17.4 K/mcL (4.3-11.1)
[2019-12-05 06:13] LABS: VBG Ionized Calcium 0.92 mmol/L (1.15-1.35)
[2019-12-05] MEDS: Calcium Gluconate 1gm/50mL 1 GM/50 ML BAG IVPB PRN (06:21)
[2019-12-05 06:34] LABS: BUN/Creatinine Ratio 60 (6-26); Blood Urea Nitrogen 34 mg/dL (8-23); Calcium 8.9 mg/dL (8.6-10.3); Carbon Dioxide 31 mEq/L (23-29); Chloride 103 mEq/L (98-107); Glucose 134 mg/dL (70-105); Osmolality,Calculated 306 (280-300); Potassium 4.3 mEq/L (3.5-5.1); Sodium 143 mEq/L (136-145); eGFR For African Americans > 60 (> 60); eGFR For Non-African Americans > 60 (> 60)
[2019-12-05 06:35] LABS: Magnesium 2.1 mg/dL (1.6-2.6); Phosphorous 3.8 mg/dL (2.7-4.5)
[2019-12-05] MEDS: Dexmedetomidine HCl 400 MCG/100 ML MLS IVC SCH ×2 (08:00→22:21)
[2019-12-05] MEDS: Chlorhexidine Rinse 15 ML MOUTHWASH MM SCH ×2 (08:01→19:45)
[2019-12-05] MEDS: Piperacillin/Tazobactam 3.375 GM in 0.9 % Sodium Chloride Mini Bag 100 ML IVPB SCH (08:01)
[2019-12-05] MEDS: Doxycycline 100 MG CAPSULE PO SCH (08:02)
[2019-12-05] MEDS: Pregabalin 50 MG CAPSULE PO SCH ×2 (08:02→19:44)
[2019-12-05] MEDS: Sennosides/Docusate Sodium TABLET PO SCH ×2 (08:03→19:44)
[2019-12-05] MEDS: Furosemide 40 MG/4 ML VIAL IVP SCH ×2 (08:04→19:44)
[2019-12-05 12:53] LABS: VBG Ionized Calcium 1.12 mmol/L (1.15-1.35)
[2019-12-05] MEDS: Aspirin Enteric Coated 81 MG Tablet PO SCH (19:44)
[2019-12-05] MEDS: FLUoxetine 20 MG CAPSULE PO SCH (19:44)
[2019-12-05] MEDS: Acetaminophen 325 MG TABLET PO PRN (19:45)
[2019-12-05] MEDS ORDERED: Vancomycin 1 EACH in 0.9 % Sodium Chloride 250 ML IVPB PRN (21:15)
[2019-12-06] MEDS: Albuterol 2.5 MG/3 ML NEBULIZER IH SCH ×7 (00:31→23:51)
[2019-12-06] MEDS: Acetylcysteine 10% 2 ML INHSOL IH SCH ×7 (00:32→23:51)
[2019-12-06] MEDS: Artificial Tears SOLN 15 ML BOTTLE BOTH EYES SCH ×7 (00:53→23:16)
[2019-12-06] MEDS: Insulin LISPRO 300 UNITS/3 ML VIAL SQ SCH ×7 (00:54→23:18)
[2019-12-06] MEDS: Famotidine 20 MG/2 ML VIAL IVP SCH ×2 (04:20→18:10)
[2019-12-06] MEDS: *HR* Heparin 5,000 UNIT/ML VIAL SQ SCH ×2 (04:20→18:10)
[2019-12-06] MEDS: Acetaminophen 325 MG TABLET PO PRN (04:38)
[2019-12-06 05:12] LABS: ABG Base Excess 8 mEq/L (-2 to 3); ABG HCO3 32 mEq/L (21-27); ABG Oxygen Saturation 96 % (95-98); ABG PCO2 43 mmHg (35-45); ABG PH 7.49 pH Units (7.32-7.45); ABG PO2 79 mmHg (85-104); ABG TCO2 34 mEq/L (20-26); Blood Gas Modality AF; Blood Gas VT 450 cc
[2019-12-06 05:29] LABS: Nucleated Red Blood Cells 0.5 /100 WBC (0); Red Cell Distribution Width 14.1 % (11.5-14.5); Segmented Neutrophils % 52.5 %
[2019-12-06 05:31] LABS: Basophils # 0.1 K/mcL (0.0-0.2); Basophils % 0.9 %; Eosinophils # 0.4 K/mcL (0.0-0.6); Eosinophils % 2.3 %; Hematocrit 33.1 % (35.3-44.9); Hemoglobin 10.2 g/dL (11.5-15.4); Immature Granulocytes % 1.6 % (0-4); Immature Platelets 10.6 % (1.1-6.1); Lymphocytes # 4.4 K/mcL (0.6-4.6); Lymphocytes % 29.1 %; Mean Corpuscular HGB Conc 30.8 g/dL (31.6-35.5); Mean Corpuscular Hemoglobin 30.3 pg (28.0-33.3); Mean Corpuscular Volume 98.2 fL (83.0-100.0); Mean Platelet Volume 12.5 fL (9.4-12.4); Monocytes % 13.6 %; Neutrophils # 7.9 K/mcL (1.6-8.9); Platelet Count 475 K/mcL (140-400); Red Blood Count 3.37 M/mcL (3.82-4.97)
[2019-12-06 05:48] LABS: Alanine Aminotransferase 23 Units/L (7-52); Albumin 2.9 g/dL (3.5-5.7); Albumin/Globulin Ratio 0.8 (1.1-2.2); Alkaline Phosphatase 81 Units/L (34-104); Aspartate Amino Transferase 38 Units/L (13-39); BUN/Creatinine Ratio 65 (6-26); Bilirubin,Total 0.3 mg/dL (0.3-1.0); Blood Urea Nitrogen 35 mg/dL (8-23); Calcium 8.6 mg/dL (8.6-10.3); Carbon Dioxide 30 mEq/L (23-29); Chloride 103 mEq/L (98-107); Globulin 3.6 g/dL (2.4-3.5); Glucose 143 mg/dL (70-105); Osmolality,Calculated 302 (280-300); Phosphorous 3.2 mg/dL (2.7-4.5); Potassium 3.3 mEq/L (3.5-5.1); Sodium 141 mEq/L (136-145); Total Protein 6.5 g/dL (6.4-8.9); Vancomycin,Random 14 mcg/mL; eGFR For African Americans > 60 (> 60); eGFR For Non-African Americans > 60 (> 60)
[2019-12-06] MEDS: Potassium Chloride Elixir 20 MEQ/15 ML UDC GTUBE PRN (06:16)
[2019-12-06] MEDS: Pregabalin 50 MG CAPSULE PO SCH ×2 (08:07→19:37)
[2019-12-06] MEDS: Furosemide 40 MG/4 ML VIAL IVP SCH ×2 (08:07→20:08)
[2019-12-06] MEDS: Sennosides/Docusate Sodium TABLET PO SCH ×2 (08:07→19:37)
[2019-12-06] MEDS: Chlorhexidine Rinse 15 ML MOUTHWASH MM SCH ×2 (08:07→20:08)
[2019-12-06] MEDS ORDERED: Aminoglycoside Consult 1 EACH MC ONE (09:45)
[2019-12-06 11:53] LABS: BUN/Creatinine Ratio 57 (6-26); Blood Urea Nitrogen 29 mg/dL (8-23); Calcium 8.7 mg/dL (8.6-10.3); Carbon Dioxide 30 mEq/L (23-29); Chloride 104 mEq/L (98-107); Glucose 139 mg/dL (70-105); Osmolality,Calculated 304 (280-300); Sodium 143 mEq/L (136-145); eGFR For African Americans > 60 (> 60); eGFR For Non-African Americans > 60 (> 60)
[2019-12-06] MEDS ORDERED: Acetaminophen IV 500 MG/50 ML INFUS..BTL IVPB ONE (11:56)
[2019-12-06] MEDS ORDERED: Piperacillin/Tazobactam 3.375 GM in 0.9 % Sodium Chloride Mini Bag 100 ML IVPB SCH (19:00)
[2019-12-06] MEDS: Aspirin Enteric Coated 81 MG Tablet PO SCH (19:36)
[2019-12-06] MEDS: FLUoxetine 20 MG CAPSULE PO SCH (19:37)
[2019-12-06 23:00] LABS: BUN/Creatinine Ratio 55 (6-26); Blood Urea Nitrogen 26 mg/dL (8-23); Carbon Dioxide 28 mEq/L (23-29); Chloride 103 mEq/L (98-107); Glucose 135 mg/dL (70-105); Osmolality,Calculated 299 (280-300); Potassium 3.7 mEq/L (3.5-5.1); Sodium 141 mEq/L (136-145); eGFR For African Americans > 60 (> 60); eGFR For Non-African Americans > 60 (> 60)
[2019-12-06] MEDS ORDERED: Dextrose Gel 15 GM/37.5 ML TUBE PO PRN ×2 (23:41)
[2019-12-06] MEDS ORDERED: D5% in Water 1,000 ML IVC PRN (23:41)
[2019-12-06] MEDS ORDERED: *HR* Dextrose 50 % in Water (Syg) 50 ML SYRINGE IVP PRN (23:41)
[2019-12-07] MEDS ORDERED: Insulin LISPRO 300 UNITS/3 ML VIAL SQ SCH
[2019-12-07] MEDS: Insulin LISPRO 300 UNITS/3 ML VIAL SQ SCH ×4 (00:16→17:14)
[2019-12-07] MEDS: Acetylcysteine 10% 2 ML INHSOL IH SCH ×2 (03:55→07:40)
[2019-12-07] MEDS: Albuterol 2.5 MG/3 ML NEBULIZER IH SCH ×6 (03:55→23:26)
[2019-12-07] MEDS: Artificial Tears SOLN 15 ML BOTTLE BOTH EYES SCH ×2 (04:19→08:57)
[2019-12-07 04:49] LABS: Hematocrit 38.3 % (35.3-44.9); Hemoglobin 11.6 g/dL (11.5-15.4); Mean Corpuscular HGB Conc 30.3 g/dL (31.6-35.5); Mean Corpuscular Hemoglobin 30.3 pg (28.0-33.3); Mean Platelet Volume 12.5 fL (9.4-12.4); Platelet Count 655 K/mcL (140-400); Red Blood Count 3.83 M/mcL (3.82-4.97); Red Cell Distribution Width 14.4 % (11.5-14.5); White Blood Count 15.4 K/mcL (4.3-11.1)
[2019-12-07 05:09] LABS: BUN/Creatinine Ratio 60 (6-26); Blood Urea Nitrogen 30 mg/dL (8-23); Calcium 9.3 mg/dL (8.6-10.3); Carbon Dioxide 27 mEq/L (23-29); Chloride 103 mEq/L (98-107); Glucose 118 mg/dL (70-105); Magnesium 2.2 mg/dL (1.6-2.6); Osmolality,Calculated 303 (280-300); Phosphorous 2.8 mg/dL (2.7-4.5); Potassium 3.7 mEq/L (3.5-5.1); Sodium 143 mEq/L (136-145); eGFR For African Americans > 60 (> 60); eGFR For Non-African Americans > 60 (> 60)
[2019-12-07 05:12] LABS: ABG Base Excess 8 mEq/L (-2 to 3); ABG HCO3 30 mEq/L (21-27); ABG Oxygen Saturation 96 % (95-98); ABG PCO2 34 mmHg (35-45); ABG PH 7.56 pH Units (7.32-7.45); ABG PO2 67 mmHg (85-104); ABG TCO2 31 mEq/L (20-26)
[2019-12-07 05:20] LABS: Thyroid Stimulating Hormone 0.262 mcIU/mL (0.340-5.600)
[2019-12-07] MEDS: Famotidine 20 MG/2 ML VIAL IVP SCH ×2 (05:54→17:21)
[2019-12-07] MEDS: *HR* Heparin 5,000 UNIT/ML VIAL SQ SCH ×2 (05:54→17:21)
[2019-12-07] MEDS: Potassium Phosphate 44 MEQ in 0.9 % Sodium Chloride 250 ML IVPB PRN (06:23)
[2019-12-07 06:33] LABS: VBG Ionized Calcium 1.01 mmol/L (1.15-1.35)
[2019-12-07] MEDS: Calcium Gluconate 1gm/50mL 1 GM/50 ML BAG IVPB PRN (06:45)
[2019-12-07] MEDS: Chlorhexidine Rinse 15 ML MOUTHWASH MM SCH (08:55)
[2019-12-07] MEDS: Furosemide 40 MG/4 ML VIAL IVP SCH ×2 (08:55→21:17)
[2019-12-07] MEDS: Sennosides/Docusate Sodium TABLET PO SCH ×2 (08:57→21:16)
[2019-12-07] MEDS: Pregabalin 50 MG CAPSULE PO SCH ×2 (08:58→21:17)
[2019-12-07 10:29] LABS: Alanine Aminotransferase 39 Units/L (7-52); Albumin 3.2 g/dL (3.5-5.7); Albumin/Globulin Ratio 0.7 (1.1-2.2); Alkaline Phosphatase 87 Units/L (34-104); Aspartate Amino Transferase 61 Units/L (13-39); Bilirubin,Direct 0.1 mg/dL (0.0-0.2); Bilirubin,Indirect 0.3 mg/dL (0.0-1.0); Bilirubin,Total 0.4 mg/dL (0.3-1.0); Globulin 4.4 g/dL (2.4-3.5); Lipase 54 Units/L (11-82); Total Protein 7.6 g/dL (6.4-8.9)
[2019-12-07] MEDS ORDERED: levoFLOXacin 750 MG TABLET PO SCH (11:15)
[2019-12-07] MEDS ORDERED: Dextrose Gel 15 GM/37.5 ML TUBE PO PRN ×2 (12:32)
[2019-12-07] MEDS ORDERED: D5% in Water 1,000 ML IVC PRN (12:32)
[2019-12-07] MEDS ORDERED: Ondansetron 4 MG/2 ML VIAL IVP PRN (12:32)
[2019-12-07] MEDS ORDERED: *HR* Dextrose 50 % in Water (Syg) 50 ML SYRINGE IVP PRN (12:32)
[2019-12-07] MEDS: Aspirin Enteric Coated 81 MG Tablet PO SCH (21:16)
[2019-12-07] MEDS: FLUoxetine 20 MG CAPSULE PO SCH (21:17)
[2019-12-08] MEDS: Insulin LISPRO 300 UNITS/3 ML VIAL SQ SCH ×5 (00:54→23:29)
[2019-12-08] MEDS: Albuterol 2.5 MG/3 ML NEBULIZER IH SCH ×6 (03:44→23:27)
[2019-12-08] MEDS: Famotidine 20 MG/2 ML VIAL IVP SCH ×2 (05:28→18:18)
[2019-12-08] MEDS: *HR* Heparin 5,000 UNIT/ML VIAL SQ SCH ×2 (05:28→18:18)
[2019-12-08 07:13] LABS: BUN/Creatinine Ratio 57 (6-26); Blood Urea Nitrogen 29 mg/dL (8-23); Calcium 8.8 mg/dL (8.6-10.3); Carbon Dioxide 26 mEq/L (23-29); Chloride 103 mEq/L (98-107); Glucose 126 mg/dL (70-105); Osmolality,Calculated 297 (280-300); Phosphorous 3.2 mg/dL (2.7-4.5); Potassium 4.1 mEq/L (3.5-5.1); Sodium 140 mEq/L (136-145); eGFR For African Americans > 60 (> 60); eGFR For Non-African Americans > 60 (> 60)
[2019-12-08] MEDS: Pregabalin 50 MG CAPSULE PO SCH ×2 (07:43→19:40)
[2019-12-08] MEDS: Furosemide 40 MG/4 ML VIAL IVP SCH ×2 (07:43→19:41)
[2019-12-08] MEDS: levoFLOXacin 750 MG TABLET PO SCH (07:43)
[2019-12-08] MEDS: Acetaminophen 325 MG TABLET PO PRN (07:43)
[2019-12-08] MEDS: Sennosides/Docusate Sodium TABLET PO SCH ×2 (07:43→19:41)
[2019-12-08 08:01] LABS: Hematocrit 39.2 % (35.3-44.9); Hemoglobin 12.2 g/dL (11.5-15.4); Mean Corpuscular HGB Conc 31.1 g/dL (31.6-35.5); Mean Corpuscular Hemoglobin 30.8 pg (28.0-33.3); Mean Platelet Volume 12.4 fL (9.4-12.4); Platelet Count 683 K/mcL (140-400); Red Blood Count 3.96 M/mcL (3.82-4.97); Red Cell Distribution Width 14.4 % (11.5-14.5); White Blood Count 11.9 K/mcL (4.3-11.1)
[2019-12-08] MEDS: *HR* OxyCODONE Immed Rel 5 MG TABLET PO PRN (15:27)
[2019-12-08 19:16] LABS: BUN/Creatinine Ratio 51 (6-26); Blood Urea Nitrogen 29 mg/dL (8-23); Calcium 9.1 mg/dL (8.6-10.3); Carbon Dioxide 24 mEq/L (23-29); Chloride 99 mEq/L (98-107); Glucose 117 mg/dL (70-105); Osmolality,Calculated 293 (280-300); Sodium 138 mEq/L (136-145); eGFR For African Americans > 60 (> 60); eGFR For Non-African Americans > 60 (> 60)
[2019-12-08] MEDS: Aspirin Enteric Coated 81 MG Tablet PO SCH (19:40)
[2019-12-08] MEDS: FLUoxetine 20 MG CAPSULE PO SCH (19:41)
[2019-12-09 02:57] LABS: Hematocrit 37.3 % (35.3-44.9); Hemoglobin 11.5 g/dL (11.5-15.4); Mean Corpuscular HGB Conc 30.8 g/dL (31.6-35.5); Mean Corpuscular Hemoglobin 29.7 pg (28.0-33.3); Mean Corpuscular Volume 96.4 fL (83.0-100.0); Platelet Count 716 K/mcL (140-400); Red Blood Count 3.87 M/mcL (3.82-4.97); Red Cell Distribution Width 14.3 % (11.5-14.5); White Blood Count 12.1 K/mcL (4.3-11.1)
[2019-12-09 03:16] LABS: BUN/Creatinine Ratio 44 (6-26); Blood Urea Nitrogen 26 mg/dL (8-23); Calcium 9.1 mg/dL (8.6-10.3); Carbon Dioxide 27 mEq/L (23-29); Chloride 97 mEq/L (98-107); Glucose 107 mg/dL (70-105); Osmolality,Calculated 289 (280-300); Phosphorous 3.4 mg/dL (2.7-4.5); Potassium 2.8 mEq/L (3.5-5.1); Sodium 137 mEq/L (136-145); eGFR For African Americans > 60 (> 60); eGFR For Non-African Americans > 60 (> 60)
[2019-12-09] MEDS: Albuterol 2.5 MG/3 ML NEBULIZER IH SCH ×4 (03:47→15:45)
[2019-12-09] MEDS: Famotidine 20 MG/2 ML VIAL IVP SCH (04:48)
[2019-12-09] MEDS: *HR* Heparin 5,000 UNIT/ML VIAL SQ SCH (04:48)
[2019-12-09] MEDS: *HR* OxyCODONE Immed Rel 5 MG TABLET PO PRN ×2 (04:57→13:33)
[2019-12-09] MEDS: Insulin LISPRO 300 UNITS/3 ML VIAL SQ SCH ×2 (06:04→12:43)
[2019-12-09] MEDS: Pregabalin 50 MG CAPSULE PO SCH (07:41)
[2019-12-09] MEDS: Sennosides/Docusate Sodium TABLET PO SCH (07:42)
[2019-12-09] MEDS: levoFLOXacin 750 MG TABLET PO SCH (07:42)
[2019-12-09] MEDS: Furosemide 40 MG/4 ML VIAL IVP SCH (07:42)
[2019-12-09] MEDS: Acetaminophen 325 MG TABLET PO PRN (07:45)
[2019-12-09 10:59] VITALS: BP 109/68
[2019-12-09] MEDS: Menthol 9.1 MG LOZENGE PO PRN ×2 (14:10→16:27)
== END 2019-12-09 18:08 | DRG 870 ==
LOC: 2NNU 03:26 → EMEROOARM 03:26 → SUATTDRO 05:55 → 2NNU 06:30 → SUATTDRO 07:47 → ICNU 11-27 20:30 → 2ANU 12-07 16:55
PROVIDERS: ADMIT Internal Medicine; ATTEND Internal Medicine

== ENCOUNTER 2020-04-04 21:19 | Observation (INO) ==
[2020-04-04 22:17] LABS: Bilirubin,Urine Negative (Negative); Blood,Urine Negative (Negative); Clarity,Urine Clear (Clear); Color,Urine Light-Yellow (Yellow); Glucose,Urine (UA) Normal (Normal); Ketones,Urine Negative (Negative); Leukocyte Esterase,Urine Negative (Negative); Nitrite,Urine Negative (Negative); PH,Urine 6.5 pH Units (5.0-8.0); Protein,Urine Negative (Neg-Trace); Specific Gravity,Urine 1.013 (1.010-1.025); Urobilinogen,Urine Normal (Normal)
[2020-04-04 22:22] LABS: Basophils # 0.1 K/mcL (0.0-0.2); Basophils % 0.6 %; Eosinophils # 0.2 K/mcL (0.0-0.6); Eosinophils % 1.8 %; Hematocrit 40.4 % (35.3-44.9); Hemoglobin 13.1 g/dL (11.5-15.4); Immature Granulocytes % 0.4 % (0-4); Lymphocytes # 6.4 K/mcL (0.6-4.6); Lymphocytes % 56.8 %; Mean Corpuscular HGB Conc 32.4 g/dL (31.6-35.5); Mean Corpuscular Hemoglobin 30.3 pg (28.0-33.3); Mean Corpuscular Volume 93.3 fL (83.0-100.0); Mean Platelet Volume 11.7 fL (9.4-12.4); Monocytes # 1.3 K/mcL (0.0-1.3); Monocytes % 11.9 %; Neutrophils # 3.2 K/mcL (1.6-8.9); Platelet Count 337 K/mcL (140-400); Red Blood Count 4.33 M/mcL (3.82-4.97); Red Cell Distribution Width 16.6 % (11.5-14.5); Segmented Neutrophils % 28.5 %; White Blood Count 11.3 K/mcL (4.3-11.1)
[2020-04-04 22:30] LABS: Prothrombin Time 11.3 Seconds (9.4-12.1)
[2020-04-04 22:32] LABS: Activated Partial Thrombo Time 31.7 Seconds (26.0-36.0)
[2020-04-04 22:46] LABS: BUN/Creatinine Ratio 20 (6-26); Blood Urea Nitrogen 14 mg/dL (8-23); Calcium 9.1 mg/dL (8.6-10.3); Carbon Dioxide 25 mEq/L (23-29); Chloride 104 mEq/L (98-107); Glucose 69 mg/dL (70-105); Osmolality,Calculated 283 (280-300); Potassium 3.6 mEq/L (3.5-5.1); Sodium 137 mEq/L (136-145); eGFR For African Americans > 60 (> 60); eGFR For Non-African Americans > 60 (> 60)
[2020-04-04 22:47] LABS: Troponin I < 0.03 ng/mL (< 0.04)
[2020-04-04 22:49] LABS: Reactive Lymphocytes Present (Not Present)
[2020-04-04] MEDS ORDERED: Aspirin 325 MG TABLET PO ONE (23:05)
[2020-04-04] MEDS ORDERED: *HR* FentaNYL (PF) 100 MCG/2 ML VIAL IVP ONE (23:08)
[2020-04-04] MEDS ORDERED: cefTRIAXone 1,000 MG in 0.9 % Sodium Chloride Mini Bag 100 ML IVPB ONE (23:23)
[2020-04-04] MEDS ORDERED: Azithromycin 500 MG in 0.9 % Sodium Chloride 250 ML IVPB ONE (23:23)
[2020-04-05 01:14] LABS: Adenovirus Not Detected (Not Detect); Coronavirus 229E Not Detected (Not Detect); Coronavirus HKU1 Not Detected (Not Detect); Coronavirus NL63 Not Detected (Not Detect)
[2020-04-05 01:15] LABS: Bordetella Pertussis Not Detected (Not Detect); Chlamydophila pneumoniae Not Detected (Not Detect); Coronavirus OC43 Not Detected (Not Detect); Human Metapneumovirus Not Detected (Not Detect); Human Rhinovirus/Enterovirus Not Detected (Not Detect); Influenza A Subtype 2009 H1 Not Detected (Not Detect); Influenza B Not Detected (Not Detect); Mycoplasma pneumoniae Not Detected (Not Detect); Parainfluenza Virus 1 Not Detected (Not Detect); Parainfluenza Virus 2 Not Detected (Not Detect); Parainfluenza Virus 3 Not Detected (Not Detect); Parainfluenza Virus 4 Not Detected (Not Detect); Respiratory Syncytial Virus Not Detected (Not Detect)
[2020-04-05] MEDS ORDERED: Naloxone 0.4 MG/ML INJ IVP PRN (02:34)
[2020-04-05] MEDS ORDERED: *HR* Heparin 5,000 UNIT/ML VIAL IVP PRN ×2 (02:37)
[2020-04-05] MEDS ORDERED: *HR* Heparin 5,000 UNIT/ML VIAL IVP ONE (02:37)
[2020-04-05] MEDS ORDERED: Ketorolac 15 MG/ML VIAL IVP PRN (02:42)
[2020-04-05] MEDS ORDERED: Heparin 25,000UNIT/250ML 1/2NS 25,000 UNIT/250 ML IV.SOLN IVC SCH (02:45)
[2020-04-05] MEDS ORDERED: Dextrose Gel 15 GM/37.5 ML TUBE PO PRN ×2 (02:46)
[2020-04-05] MEDS ORDERED: D5% in Water 1,000 ML IVC PRN (02:46)
[2020-04-05] MEDS ORDERED: *HR* Dextrose 50 % in Water (Vial) 50 ML VIAL IVP PRN (02:46)
[2020-04-05] MEDS: hydrOXYzine pamoate 25 MG CAPSULE PO SCH ×2 (03:04→21:10)
[2020-04-05] MEDS: FLUoxetine 20 MG CAPSULE PO SCH ×2 (03:04→21:10)
[2020-04-05 04:36] LABS: Hematocrit 35.2 % (35.3-44.9); Mean Corpuscular HGB Conc 32.4 g/dL (31.6-35.5); Mean Corpuscular Hemoglobin 29.8 pg (28.0-33.3); Mean Corpuscular Volume 91.9 fL (83.0-100.0); Mean Platelet Volume 11.8 fL (9.4-12.4); Platelet Count 292 K/mcL (140-400); Red Blood Count 3.83 M/mcL (3.82-4.97); Red Cell Distribution Width 16.5 % (11.5-14.5); White Blood Count 10.8 K/mcL (4.3-11.1)
[2020-04-05 04:42] LABS: Hemoglobin 11.4 g/dL (11.5-15.4)
[2020-04-05 04:47] LABS: INR 1.1; Prothrombin Time 12.6 Seconds (9.4-12.1)
[2020-04-05 04:50] LABS: Heparin anti-factor XA UFH 1.2 IU/mL (0.30-0.70)
[2020-04-05 04:57] LABS: BUN/Creatinine Ratio 26 (6-26); Blood Urea Nitrogen 15 mg/dL (8-23); Calcium 8.3 mg/dL (8.6-10.3); Carbon Dioxide 23 mEq/L (23-29); Chloride 108 mEq/L (98-107); Glucose 103 mg/dL (70-105); Magnesium 1.8 mg/dL (1.6-2.6); Osmolality,Calculated 289 (280-300); Phosphorous 4.2 mg/dL (2.7-4.5); Potassium 3.8 mEq/L (3.5-5.1); Sodium 139 mEq/L (136-145); Troponin I < 0.03 ng/mL (< 0.04); eGFR For African Americans > 60 (> 60); eGFR For Non-African Americans > 60 (> 60)
[2020-04-05] MEDS: cefTRIAXone 1,000 MG in Water for inj. (sterile) 10 ML IVP SCH (07:36)
[2020-04-05] MEDS: Nitroglycerin 0.4 MG TAB.SUBL SL PRN ×2 (08:40→08:47)
[2020-04-05] MEDS ORDERED: Perflutren Lipid Microsphere 1.3 ML in 0.9 % Sodium Chloride 8.7 ML IVP PRN (10:32)
[2020-04-05] MEDS: *HR* Heparin 5,000 UNIT/ML VIAL SQ SCH (17:21)
[2020-04-05] MEDS ORDERED: Ondansetron 4 MG/2 ML VIAL IVP PRN (17:37)
[2020-04-05] MEDS: Aspirin Enteric Coated 81 MG Tablet PO SCH (21:10)
[2020-04-05] MEDS: Pregabalin 25 MG CAPSULE PO SCH (21:10)
[2020-04-05] MEDS ORDERED: Aspirin 81 MG TAB.CHEW PO ONE (21:46)
[2020-04-05] MEDS: Azithromycin 500 MG in D5% in Water 250 ML IVPB SCH (22:33)
[2020-04-06] MEDS: *HR* Heparin 5,000 UNIT/ML VIAL SQ SCH ×2 (05:57→18:12)
[2020-04-06] MEDS: Cholecalciferol (D-3) 1,000 UNIT (25MCG) TABLET PO SCH (08:28)
[2020-04-06] MEDS: cefTRIAXone 1,000 MG in Water for inj. (sterile) 10 ML IVP SCH (08:29)
[2020-04-06] MEDS: Pregabalin 25 MG CAPSULE PO SCH ×2 (08:29→20:48)
[2020-04-06 09:18] LABS: Hematocrit 38.8 % (35.3-44.9); Hemoglobin 12.4 g/dL (11.5-15.4); Mean Corpuscular Hemoglobin 30.2 pg (28.0-33.3); Mean Corpuscular Volume 94.6 fL (83.0-100.0); Mean Platelet Volume 11.8 fL (9.4-12.4); Platelet Count 299 K/mcL (140-400); Red Cell Distribution Width 16.9 % (11.5-14.5); White Blood Count 11.2 K/mcL (4.3-11.1)
[2020-04-06 09:36] LABS: BUN/Creatinine Ratio 28 (6-26); Blood Urea Nitrogen 18 mg/dL (8-23); Calcium 8.9 mg/dL (8.6-10.3); Carbon Dioxide 28 mEq/L (23-29); Chloride 106 mEq/L (98-107); Glucose 81 mg/dL (70-105); Osmolality,Calculated 287 (280-300); Potassium 4.4 mEq/L (3.5-5.1); Sodium 138 mEq/L (136-145); eGFR For African Americans > 60 (> 60); eGFR For Non-African Americans > 60 (> 60)
[2020-04-06] MEDS ORDERED: GI Cocktail 40 ML EACH PO ONE (13:49)
[2020-04-06] MEDS: FLUoxetine 20 MG CAPSULE PO SCH (20:48)
[2020-04-06] MEDS: hydrOXYzine pamoate 25 MG CAPSULE PO SCH (20:48)
[2020-04-06] MEDS: Aspirin Enteric Coated 81 MG Tablet PO SCH (20:49)
[2020-04-06] MEDS: Azithromycin 500 MG in D5% in Water 250 ML IVPB SCH (23:20)
[2020-04-07] MEDS: *HR* Heparin 5,000 UNIT/ML VIAL SQ SCH (05:59)
[2020-04-07] MEDS: Cholecalciferol (D-3) 1,000 UNIT (25MCG) TABLET PO SCH (10:25)
[2020-04-07] MEDS: Pregabalin 25 MG CAPSULE PO SCH (10:25)
[2020-04-07] MEDS: cefTRIAXone 1,000 MG in Water for inj. (sterile) 10 ML IVP SCH (10:25)
[2020-04-07 11:44] VITALS: BP 97/61
== END 2020-04-07 15:44 | disposition home or self-care (01) ==
LOC: EMEROOARM 21:19 → 3BNU 21:19 → SUATTDRO 04-05 01:18 → 3BNU 04-05 01:39
PROVIDERS: ADMIT Student in an Organized Health Care Education/Training Program; ATTEND Nurse Practitioner Adult Health

== ENCOUNTER 2020-09-05 09:25 | Observation (INO) ==
[~2020-09-05 09:25] MED LIST changes: +CeFAZolin 2 GM/120 ML BAG IVPB SCH; -ceFAZolin 1,000 MG, Sodium Chloride IRRigation 1,000 ML IR ONE
[2020-09-05] MEDS ORDERED: *HR* Propofol 200 MG/20 ML VIAL IVP ONE (09:51)
[2020-09-05] MEDS ORDERED: Lidocaine HCL 4 ML Topical Solution (Laryng-O-Jet Kit Sterile Pak) TP ONE (09:52)
[2020-09-05] MEDS ORDERED: *HR* Rocuronium Bromide 50 MG/5 ML VIAL ONE (09:52)
[2020-09-05] MEDS ORDERED: Lidocaine -MPF 2% 2 ML VIAL ONE (09:52)
[2020-09-05] MEDS ORDERED: Ondansetron 4 MG/2 ML VIAL ONE ×2 (09:52→13:55)
[2020-09-05] MEDS ORDERED: *HR* Succinylcholine 200 MG/10 ML VIAL IVP ONE (09:52)
[2020-09-05] MEDS ORDERED: CeFAZolin Syr 2,000MG/20 ML 2,000 MG/20 ML SYRINGE IVPB ONE (09:55)
[2020-09-05] MEDS ORDERED: Ringers Solution, Lactated 1,000 ML IVC SCH ×2 (10:00→10:15)
[2020-09-05] MEDS ORDERED: *HR* OxyCODONE Immed Rel 5 MG TABLET PO PRN (10:03)
[2020-09-05] MEDS ORDERED: Ondansetron 4 MG/2 ML VIAL IVP PRN ×2 (10:03→15:29)
[2020-09-05] MEDS ORDERED: Acetaminophen IV 1,000 MG/100 ML BAG IVPB ONE (10:26)
[2020-09-05] MEDS ORDERED: Bacitracin 50,000 UNIT, Polymyxin B Sulfate 500,000 UNIT, Sodium Chloride IRRigation 1,... IR ONE (10:45)
[2020-09-05] MEDS ORDERED: EPHEDrine 50 MG/ML VIAL ONE (11:00)
[2020-09-05] MEDS ORDERED: *HR* Remifentanil 1 MG VIAL IVP ONE (12:09)
[2020-09-05] MEDS ORDERED: Albumin Human 5% 25.0 GM/500 ML IV.SOLN ONE (13:04)
[2020-09-05] MEDS ORDERED: EPINEPHrine 1 MG/ML VIAL ONE (13:16)
[2020-09-05] MEDS ORDERED: *HR* HYDROMORPHONE 2 MG/ML VIAL ONE (13:33)
[2020-09-05] MEDS: *HR* HYDROmorphone PF 0.5 MG/0.5 ML SYRINGE IVP PRN ×2 (14:21→14:26)
[2020-09-05] MEDS ORDERED: Naloxone 0.4 MG/ML INJ IVP PRN (15:29)
[2020-09-05] MEDS ORDERED: Acetaminophen 325 MG TABLET PO PRN (15:29)
[2020-09-05] MEDS ORDERED: Lidocaine 4% CREAM (LMX) 5 GM TP PRN (15:29)
[2020-09-05] MEDS: *HR* HYDROcodone/Acet 5/325 mg TABLET PO PRN (16:41)
[2020-09-05] MEDS: Ringers Solution, Lactated 1,000 ML IVC SCH (16:42)
[2020-09-05] MEDS: Cholecalciferol (D-3) 1,000 UNIT (25MCG) TABLET PO SCH (19:47)
[2020-09-05] MEDS: Multivit/Ca/Min/Fe/FA 1 TAB TABLET PO SCH (19:48)
[2020-09-05] MEDS: FLUoxetine 20 MG CAPSULE PO SCH (19:48)
[2020-09-05] MEDS: hydrOXYzine pamoate 25 MG CAPSULE PO SCH (19:48)
[2020-09-05] MEDS: Aspirin Enteric Coated 81 MG Tablet PO SCH (19:48)
[2020-09-05] MEDS: *HR* OxyCODONE Immed Rel 5 MG TABLET PO PRN (21:44)
[2020-09-06] MEDS: *HR* HYDROcodone/Acet 5/325 mg TABLET PO PRN (00:55)
[2020-09-06 02:23] LABS: BUN/Creatinine Ratio 18 (6-26); Blood Urea Nitrogen 12 mg/dL (8-23); Calcium 8.3 mg/dL (8.6-10.3); Carbon Dioxide 23 mEq/L (23-29); Chloride 104 mEq/L (98-107); Glucose 165 mg/dL (70-105); Osmolality,Calculated 283 (280-300); Sodium 135 mEq/L (136-145); eGFR For African Americans > 60 (> 60); eGFR For Non-African Americans > 60 (> 60)
[2020-09-06] MEDS: *HR* OxyCODONE Immed Rel 5 MG TABLET PO PRN ×5 (02:45→22:11)
[2020-09-06] MEDS: Ringers Solution, Lactated 1,000 ML IVC SCH (02:47)
[2020-09-06] MEDS: CeFAZolin 2 GM/120 ML BAG IVPB SCH ×2 (03:24→11:52)
[2020-09-06] MEDS: Cholecalciferol (D-3) 1,000 UNIT (25MCG) TABLET PO SCH ×2 (08:31→22:12)
[2020-09-06] MEDS: Vitamin B Complex/Vit C/Vit E 1 EACH TABLET PO SCH (08:32)
[2020-09-06] MEDS: hydrOXYzine pamoate 25 MG CAPSULE PO SCH (22:12)
[2020-09-06] MEDS: Multivit/Ca/Min/Fe/FA 1 TAB TABLET PO SCH (22:12)
[2020-09-06] MEDS: Aspirin Enteric Coated 81 MG Tablet PO SCH (22:12)
[2020-09-06] MEDS: FLUoxetine 20 MG CAPSULE PO SCH (22:12)
[2020-09-07] MEDS: *HR* OxyCODONE Immed Rel 5 MG TABLET PO PRN ×4 (03:10→18:38)
[2020-09-07] MEDS: Cholecalciferol (D-3) 1,000 UNIT (25MCG) TABLET PO SCH (08:05)
[2020-09-07] MEDS: Vitamin B Complex/Vit C/Vit E 1 EACH TABLET PO SCH (08:07)
[2020-09-07] MEDS ORDERED: E-Z-HD (BARIUM SULF) SUSPENSION PO ONE (15:23)
[2020-09-07] MEDS ORDERED: E-Z-PAQUE (BARIUM SULF) SUSP 1 BOTTLE PO ONE (15:23)
[2020-09-07 16:11] VITALS: BP 117/70
== END 2020-09-07 19:20 | disposition home health service (06) ==
LOC: SAMDAY 09:25 → 3NENU 09:25
PROVIDERS: ADMIT Orthopaedic Surgery Orthopaedic Surgery of the Spine; ATTEND Orthopaedic Surgery Orthopaedic Surgery of the Spine

== ENCOUNTER 2020-09-09 12:48 | Inpatient (IN) ==
[2020-09-09] MEDS ORDERED: *HR* HYDROmorphone (PF) 1 MG/ML SYRINGE IVP ONE (14:01)
[2020-09-09 14:14] LABS: BUN/Creatinine Ratio 21 (6-26); Blood Urea Nitrogen 13 mg/dL (8-23); Calcium 8.9 mg/dL (8.6-10.3); Carbon Dioxide 25 mEq/L (23-29); Chloride 103 mEq/L (98-107); Glucose 109 mg/dL (70-105); Osmolality,Calculated 281 (280-300); Potassium 4.2 mEq/L (3.5-5.1); Sodium 135 mEq/L (136-145); eGFR For African Americans > 60 (> 60); eGFR For Non-African Americans > 60 (> 60)
[2020-09-09 14:17] LABS: C-Reactive Protein 101 mg/L (Less than 10)
[2020-09-09 14:36] LABS: Basophils # 0.1 K/mcL (0.0-0.2); Basophils % 0.5 %; Eosinophils # 0.4 K/mcL (0.0-0.6); Eosinophils % 3.7 %; Hematocrit 27.6 % (35.3-44.9); Hemoglobin 8.6 g/dL (11.5-15.4); Immature Granulocytes % 0.4 % (0-4); Lymphocytes # 2.9 K/mcL (0.6-4.6); Lymphocytes % 31.2 %; Mean Corpuscular HGB Conc 31.2 g/dL (31.6-35.5); Mean Corpuscular Hemoglobin 27.7 pg (28.0-33.3); Mean Corpuscular Volume 88.7 fL (83.0-100.0); Mean Platelet Volume 11.2 fL (9.4-12.4); Monocytes # 1.2 K/mcL (0.0-1.3); Monocytes % 12.5 %; Neutrophils # 4.9 K/mcL (1.6-8.9); Nucleated Red Blood Cells 0.2 /100 WBC (0); Platelet Count 432 K/mcL (140-400); Red Blood Count 3.11 M/mcL (3.82-4.97); Red Cell Distribution Width 15.9 % (11.5-14.5); Segmented Neutrophils % 51.7 %; White Blood Count 9.4 K/mcL (4.3-11.1)
[2020-09-09] MEDS ORDERED: Ondansetron ODT 4 MG TAB.RAPDIS SL ONE (14:50)
[2020-09-09] MEDS ORDERED: Ondansetron 4 MG/2 ML VIAL IVP PRN (18:22)
[2020-09-09] MEDS ORDERED: Naloxone 0.4 MG/ML INJ IVP PRN (18:22)
[2020-09-09] MEDS ORDERED: *HR* HYDROmorphone (PF) 1 MG/ML SYRINGE IM ONE (20:07)
[2020-09-09] MEDS ORDERED: Dexamethasone 4 MG/ML VIAL IVP ONE (20:13)
[2020-09-09] MEDS: FLUoxetine 20 MG CAPSULE PO SCH (20:39)
[2020-09-09] MEDS: Aspirin Enteric Coated 81 MG Tablet PO SCH (20:39)
[2020-09-09] MEDS: Pregabalin 75 MG CAPSULE PO SCH (20:39)
[2020-09-09] MEDS: hydrOXYzine pamoate 25 MG CAPSULE PO SCH (20:40)
[2020-09-10] MEDS: Ketorolac 15 MG/ML VIAL IVP PRN ×2 (00:01→17:50)
[2020-09-10] MEDS ORDERED: *HR* LORazepam 2 MG/ML VIAL IVP ONE ×2 (02:09→07:46)
[2020-09-10] MEDS: *HR* Heparin 5,000 UNIT/ML VIAL SQ SCH ×2 (06:31→17:49)
[2020-09-10 06:47] LABS: Basophils % 0.2 %; Hematocrit 29.1 % (35.3-44.9); Hemoglobin 9.1 g/dL (11.5-15.4); Immature Granulocytes % 0.4 % (0-4); Lymphocytes # 1.7 K/mcL (0.6-4.6); Lymphocytes % 30.2 %; Mean Corpuscular HGB Conc 31.3 g/dL (31.6-35.5); Mean Corpuscular Volume 89.5 fL (83.0-100.0); Mean Platelet Volume 10.7 fL (9.4-12.4); Monocytes # 0.5 K/mcL (0.0-1.3); Monocytes % 9.7 %; Neutrophils # 3.3 K/mcL (1.6-8.9); Platelet Count 475 K/mcL (140-400); Red Blood Count 3.25 M/mcL (3.82-4.97); Red Cell Distribution Width 15.7 % (11.5-14.5); Segmented Neutrophils % 59.5 %; White Blood Count 5.6 K/mcL (4.3-11.1)
[2020-09-10 06:55] LABS: INR 1.1; Prothrombin Time 12.2 Seconds (9.4-12.1)
[2020-09-10 06:57] LABS: Activated Partial Thrombo Time 29.7 Seconds (26.0-36.0)
[2020-09-10 07:11] LABS: BUN/Creatinine Ratio 24 (6-26); Blood Urea Nitrogen 13 mg/dL (8-23); Calcium 9.3 mg/dL (8.6-10.3); Carbon Dioxide 25 mEq/L (23-29); Chloride 102 mEq/L (98-107); Glucose 142 mg/dL (70-105); Osmolality,Calculated 283 (280-300); Potassium 4.5 mEq/L (3.5-5.1); Sodium 135 mEq/L (136-145); eGFR For African Americans > 60 (> 60); eGFR For Non-African Americans > 60 (> 60)
[2020-09-10 07:54] LABS: Ferritin 14 ng/mL (10-120); Iron < 10 mcg/dL (50-170); Transferrin 337 mg/dL (203-362)
[2020-09-10] MEDS ORDERED: Iron Sucrose Complex 400 MG in 0.9 % Sodium Chloride 250 ML IVPB ONE (08:10)
[2020-09-10] MEDS: Pregabalin 75 MG CAPSULE PO SCH ×2 (08:19→20:17)
[2020-09-10 09:17] LABS: Influenza A PCR Negative (Negative); Influenza B PCR Negative (Negative); Resp. Syncytial Virus PCR Negative (Negative); SARS-CoV-2 by PCR (In House) Negative (Negative)
[2020-09-10] MEDS: hydrOXYzine pamoate 25 MG CAPSULE PO SCH (20:16)
[2020-09-10] MEDS: Aspirin Enteric Coated 81 MG Tablet PO SCH (20:16)
[2020-09-10] MEDS: FLUoxetine 20 MG CAPSULE PO SCH (20:16)
[2020-09-10] MEDS ORDERED: *HR* LORazepam 1 MG TABLET PO ONE (22:50)
[2020-09-11] MEDS: *HR* Heparin 5,000 UNIT/ML VIAL SQ SCH ×2 (06:16→18:01)
[2020-09-11] MEDS: Pregabalin 75 MG CAPSULE PO SCH ×2 (08:55→21:36)
[2020-09-11] MEDS: Ketorolac 15 MG/ML VIAL IVP PRN ×3 (08:58→21:34)
[2020-09-11 10:55] LABS: Basophils % 0.5 %; Eosinophils # 0.2 K/mcL (0.0-0.6); Eosinophils % 2.5 %; Hematocrit 26.3 % (35.3-44.9); Hemoglobin 8.2 g/dL (11.5-15.4); Immature Granulocytes % 0.5 % (0-4); Lymphocytes # 3.2 K/mcL (0.6-4.6); Lymphocytes % 41.8 %; Mean Corpuscular HGB Conc 31.2 g/dL (31.6-35.5); Mean Corpuscular Hemoglobin 28.5 pg (28.0-33.3); Mean Corpuscular Volume 91.3 fL (83.0-100.0); Mean Platelet Volume 10.9 fL (9.4-12.4); Monocytes # 0.8 K/mcL (0.0-1.3); Monocytes % 10.2 %; Neutrophils # 3.4 K/mcL (1.6-8.9); Nucleated Red Blood Cells 2.2 /100 WBC (0); Platelet Count 443 K/mcL (140-400); Red Blood Count 2.88 M/mcL (3.82-4.97); Red Cell Distribution Width 16.1 % (11.5-14.5); Segmented Neutrophils % 44.5 %; White Blood Count 7.6 K/mcL (4.3-11.1)
[2020-09-11 11:09] LABS: BUN/Creatinine Ratio 18 (6-26); Blood Urea Nitrogen 12 mg/dL (8-23); C-Reactive Protein 36 mg/L (Less than 10); Calcium 8.4 mg/dL (8.6-10.3); Carbon Dioxide 22 mEq/L (23-29); Chloride 102 mEq/L (98-107); Glucose 151 mg/dL (70-105); Osmolality,Calculated 285 (280-300); Potassium 3.5 mEq/L (3.5-5.1); Sodium 136 mEq/L (136-145); eGFR For African Americans > 60 (> 60); eGFR For Non-African Americans > 60 (> 60)
[2020-09-11] MEDS ORDERED: 0.9 % Sodium Chloride 1,000 ML IVC SCH ×2 (13:00→18:45)
[2020-09-11] MEDS: Aspirin Enteric Coated 81 MG Tablet PO SCH (21:35)
[2020-09-11] MEDS: hydrOXYzine pamoate 25 MG CAPSULE PO SCH (21:36)
[2020-09-11] MEDS: FLUoxetine 20 MG CAPSULE PO SCH (21:37)
[2020-09-12] MEDS: Ketorolac 15 MG/ML VIAL IVP PRN ×2 (05:00→11:09)
[2020-09-12] MEDS: *HR* Heparin 5,000 UNIT/ML VIAL SQ SCH ×2 (05:00→19:16)
[2020-09-12 05:59] LABS: Basophils # 0.1 K/mcL (0.0-0.2); Basophils % 0.6 %; Eosinophils # 0.4 K/mcL (0.0-0.6); Eosinophils % 3.6 %; Hematocrit 25.9 % (35.3-44.9); Immature Granulocytes % 0.8 % (0-4); Lymphocytes # 5.8 K/mcL (0.6-4.6); Lymphocytes % 53.1 %; Mean Corpuscular HGB Conc 30.9 g/dL (31.6-35.5); Mean Corpuscular Hemoglobin 28.1 pg (28.0-33.3); Mean Corpuscular Volume 90.9 fL (83.0-100.0); Mean Platelet Volume 10.6 fL (9.4-12.4); Monocytes # 1.8 K/mcL (0.0-1.3); Monocytes % 16.3 %; Neutrophils # 2.8 K/mcL (1.6-8.9); Nucleated Red Blood Cells 3.6 /100 WBC (0); Platelet Count 472 K/mcL (140-400); Red Blood Count 2.85 M/mcL (3.82-4.97); Red Cell Distribution Width 16.4 % (11.5-14.5); Segmented Neutrophils % 25.6 %; White Blood Count 10.9 K/mcL (4.3-11.1)
[2020-09-12 06:23] LABS: BUN/Creatinine Ratio 11 (6-26); Blood Urea Nitrogen 7 mg/dL (8-23); Calcium 8.4 mg/dL (8.6-10.3); Carbon Dioxide 22 mEq/L (23-29); Chloride 107 mEq/L (98-107); Glucose 110 mg/dL (70-105); Osmolality,Calculated 283 (280-300); Potassium 3.3 mEq/L (3.5-5.1); Sodium 137 mEq/L (136-145); eGFR For African Americans > 60 (> 60); eGFR For Non-African Americans > 60 (> 60)
[2020-09-12] MEDS ORDERED: Potassium Chloride Elixir 20 MEQ/15 ML UDC PO ONE (08:14)
[2020-09-12] MEDS: Pregabalin 75 MG CAPSULE PO SCH ×2 (09:21→21:41)
[2020-09-12 11:36] LABS: Adenovirus F 40/41 PCR Not detected (Not detect); Astrovirus PCR Not detected (Not detect); C.difficile Toxin A/B Gene PCR Not detected (Not detect); Campylobacter by PCR Not detected (Not detect); Cryptosporidium by PCR Not detected (Not detect); Cyclospora cayetanensis PCR Not detected (Not detect); E. coli O157 by PCR Not detected (Not detect); Entamoeba histolytica PCR Not detected (Not detect); Enteroaggregative E.coli(EAEC) Not detected (Not detect); Enteropathogenic E.coli(EPEC) DETECTED (Not detect); Enterotoxigenic E.coli (ETEC) Not detected (Not detect); Giardia lamblia PCR Not detected (Not detect); Norovirus GI/GII PCR Not detected (Not detect); Plesiomonas shigelloides PCR Not detected (Not detect); Rotavirus A PCR Not detected (Not detect); Salmonella PCR Not detected (Not detect); Sapovirus PCR Not detected (Not detect); Shig/EnteroinvasiveE coli EIEC Not detected (Not detect); Shigalike tox-prod E coli STEC Not detected (Not detect); Vibrio PCR Not detected (Not detect); Vibrio cholerae PCR Not detected (Not detect); Yersinia enterocolitica PCR Not detected (Not detect)
[2020-09-12] MEDS ORDERED: methocarbamoL 500 MG TABLET PO PRN (13:04)
[2020-09-12] MEDS: Acetaminophen 325 MG TABLET PO SCH ×2 (19:15→23:49)
[2020-09-12] MEDS: FLUoxetine 20 MG CAPSULE PO SCH (21:39)
[2020-09-12] MEDS: hydrOXYzine pamoate 25 MG CAPSULE PO SCH (21:40)
[2020-09-12] MEDS: Aspirin Enteric Coated 81 MG Tablet PO SCH (21:41)
[2020-09-12] MEDS ORDERED: Ondansetron Oral Soln 2 MG/2.5 ML ORAL.SYG PO ONE (23:31)
[2020-09-13 04:40] LABS: Basophils # 0.1 K/mcL (0.0-0.2); Basophils % 0.7 %; Eosinophils # 0.4 K/mcL (0.0-0.6); Hematocrit 27.8 % (35.3-44.9); Hemoglobin 8.5 g/dL (11.5-15.4); Immature Granulocytes % 1.3 % (0-4); Lymphocytes % 57.5 %; Mean Corpuscular HGB Conc 30.6 g/dL (31.6-35.5); Mean Corpuscular Hemoglobin 28.4 pg (28.0-33.3); Mean Platelet Volume 11.2 fL (9.4-12.4); Monocytes # 1.8 K/mcL (0.0-1.3); Monocytes % 14.4 %; Neutrophils # 2.8 K/mcL (1.6-8.9); Nucleated Red Blood Cells 3.3 /100 WBC (0); Platelet Count 527 K/mcL (140-400); Red Blood Count 2.99 M/mcL (3.82-4.97); Red Cell Distribution Width 16.5 % (11.5-14.5); Segmented Neutrophils % 23.1 %; White Blood Count 12.2 K/mcL (4.3-11.1)
[2020-09-13 04:56] LABS: BUN/Creatinine Ratio 14 (6-26); Blood Urea Nitrogen 8 mg/dL (8-23); Calcium 8.6 mg/dL (8.6-10.3); Carbon Dioxide 21 mEq/L (23-29); Chloride 109 mEq/L (98-107); Glucose 96 mg/dL (70-105); Osmolality,Calculated 286 (280-300); Potassium 4.1 mEq/L (3.5-5.1); Sodium 139 mEq/L (136-145); eGFR For African Americans > 60 (> 60); eGFR For Non-African Americans > 60 (> 60)
[2020-09-13] MEDS: *HR* Heparin 5,000 UNIT/ML VIAL SQ SCH (05:10)
[2020-09-13] MEDS: Acetaminophen 325 MG TABLET PO SCH (05:10)
[2020-09-13] MEDS: Pregabalin 75 MG CAPSULE PO SCH (09:17)
[2020-09-13] MEDS ORDERED: Ondansetron ODT 4 MG TAB.RAPDIS SL PRN (09:27)
[2020-09-13 11:05] VITALS: BP 121/71
== END 2020-09-13 16:58 | disposition home or self-care (01) | DRG 919 ==
LOC: EMEROOARM 12:48 → 3NENU 12:48 → SUATTDRO 18:31
PROVIDERS: ADMIT Internal Medicine; ATTEND Internal Medicine

== ENCOUNTER 2021-11-28 11:20 | Observation (INO) ==
[~2021-11-28 11:20] MED LIST changes: +*HR* FentaNYL (PF) 100 MCG/2 ML VIAL IVP PRN; +*HR* HYDROmorphone PF 0.5 MG/0.5 ML SYRINGE IVP PRN; -CeFAZolin 2 GM/120 ML BAG IVPB SCH; +Ondansetron 4 MG/2 ML VIAL IVP PRN
[2021-11-28] MEDS ORDERED: CeFAZolin Syr 2,000MG/20 ML 2,000 MG/20 ML SYRINGE IVPB ONE (11:57)
[2021-11-28] MEDS ORDERED: Ringers Solution, Lactated 1,000 ML IVC SCH (12:00)
[2021-11-28] MEDS ORDERED: Ondansetron 4 MG/2 ML VIAL IVP PRN (12:17)
[2021-11-28] MEDS ORDERED: *HR* FentaNYL (PF) 100 MCG/2 ML VIAL IVP PRN (12:17)
[2021-11-28] MEDS ORDERED: Famotidine 20 MG TABLET PO ONE ×2 (12:30→14:00)
[2021-11-28] MEDS ORDERED: *HR* Propofol 200 MG/20 ML VIAL IVP ONE (13:21)
[2021-11-28] MEDS ORDERED: *HR* FentaNYL (PF) 100 MCG/2 ML VIAL ONE (13:21)
[2021-11-28] MEDS ORDERED: Ondansetron 4 MG/2 ML VIAL ONE (13:21)
[2021-11-28] MEDS ORDERED: Lidocaine -MPF 2% 5 ML VIAL ONE (13:21)
[2021-11-28] MEDS ORDERED: *HR* Midazolam HCl 2 MG/2 ML VIAL ONE (13:21)
[2021-11-28] MEDS ORDERED: *HR* Rocuronium Bromide 50 MG/5 ML VIAL ONE (13:24)
[2021-11-28] MEDS ORDERED: Lidocaine/EPI 1:100k 1% 30 ML VIAL ONE (13:42)
[2021-11-28] MEDS ORDERED: *HR* HYDROMORPHONE 2 MG/ML VIAL ONE (15:17)
[2021-11-28] MEDS ORDERED: Ketamine HCL *QUVA* 50mg (1mL) SYRINGE ONE (15:18)
[2021-11-28] MEDS ORDERED: Sugammadex Sodium 200 MG/2 ML VIAL IV ONE (16:41)
[2021-11-28] MEDS: *HR* HYDROmorphone PF 0.5 MG/0.5 ML SYRINGE IVP PRN ×2 (18:27→18:32)
[2021-11-28] MEDS ORDERED: Ropivacaine/PF 0.5% 30 ML VIAL ONE (18:29)
[2021-11-28] MEDS ORDERED: Naloxone 0.4 MG/ML INJ IVP PRN (19:37)
[2021-11-28] MEDS ORDERED: tiZANidine 4 MG TABLET PO PRN (19:37)
[2021-11-28] MEDS ORDERED: Ibuprofen 400 MG TABLET PO PRN (19:37)
[2021-11-28] MEDS ORDERED: CeFAZolin 2 GM/100 ML BAG IVPB SCH (20:00)
[2021-11-28] MEDS: Ringers Solution, Lactated 1,000 ML IVC SCH (21:06)
[2021-11-28] MEDS: Cholecalciferol (D-3) 1,000 UNIT (25MCG) TABLET PO SCH (21:07)
[2021-11-28] MEDS: hydrOXYzine pamoate 25 MG CAPSULE PO SCH (21:07)
[2021-11-28] MEDS: FLUoxetine 20 MG CAPSULE PO SCH (21:07)
[2021-11-28] MEDS: Pregabalin 75 MG CAPSULE PO SCH (21:07)
[2021-11-28] MEDS: Aspirin Enteric Coated 81 MG Tablet PO SCH (21:07)
[2021-11-28] MEDS: Melatonin 3 MG TABLET PO SCH (21:07)
[2021-11-29 05:29] LABS: BUN/Creatinine Ratio 19 (6-26); Blood Urea Nitrogen 11 mg/dL (8-23); Calcium 8.6 mg/dL (8.6-10.3); Carbon Dioxide 23 mEq/L (23-29); Chloride 105 mEq/L (98-107); Glucose 207 mg/dL (70-105); Osmolality,Calculated 289 (280-300); Potassium 4.2 mEq/L (3.5-5.1); Sodium 137 mEq/L (136-145); eGFR For African Americans > 60 (> 60); eGFR For Non-African Americans > 60 (> 60)
[2021-11-29] MEDS: CeFAZolin 2 GM/100 ML BAG IVPB SCH ×2 (05:46→14:15)
[2021-11-29 07:13] LABS: Basophils % 0.1 %; Hematocrit 27.3 % (35.3-44.9); Hemoglobin 8.6 g/dL (11.5-15.4); Immature Granulocytes % 0.4 % (0-4); Lymphocytes % 21.4 %; Mean Corpuscular HGB Conc 31.5 g/dL (31.6-35.5); Mean Corpuscular Hemoglobin 27.1 pg (28.0-33.3); Mean Corpuscular Volume 86.1 fL (83.0-100.0); Mean Platelet Volume 11.5 fL (9.4-12.4); Monocytes # 1.5 K/mcL (0.0-1.3); Monocytes % 10.5 %; Neutrophils # 9.6 K/mcL (1.6-8.9); Nucleated Red Blood Cells 0.1 /100 WBC (0); Platelet Count 438 K/mcL (140-400); Red Blood Count 3.17 M/mcL (3.82-4.97); Red Cell Distribution Width 17.8 % (11.5-14.5); Segmented Neutrophils % 67.6 %; White Blood Count 14.2 K/mcL (4.3-11.1)
[2021-11-29] MEDS ORDERED: ACARBOSE 50 MG PO SCH (08:00)
[2021-11-29] MEDS: Cholecalciferol (D-3) 1,000 UNIT (25MCG) TABLET PO SCH ×2 (08:41→20:03)
[2021-11-29] MEDS: Loratadine 10 MG TABLET PO SCH (08:41)
[2021-11-29] MEDS: Pregabalin 75 MG CAPSULE PO SCH ×2 (08:42→21:36)
[2021-11-29] MEDS: *HR* HYDROcodone/Acet 5/325 mg TABLET PO PRN (08:45)
[2021-11-29] MEDS: Ringers Solution, Lactated 1,000 ML IVC SCH (10:04)
[2021-11-29] MEDS: *HR* OxyCODONE Immed Rel 5 MG TABLET PO PRN ×2 (10:14→20:02)
[2021-11-29] MEDS ORDERED: 0.9 % Sodium Chloride 1,000 ML ONE (15:29)
[2021-11-29] MEDS ORDERED: 0.9 % Sodium Chloride 1,500 ML IV ONE (16:17)
[2021-11-29] MEDS: Aspirin Enteric Coated 81 MG Tablet PO SCH (20:03)
[2021-11-29] MEDS: FLUoxetine 20 MG CAPSULE PO SCH (20:04)
[2021-11-29] MEDS: hydrOXYzine pamoate 25 MG CAPSULE PO SCH (20:05)
[2021-11-29 20:27] LABS: Bilirubin,Urine Negative (Negative); Blood,Urine Negative (Negative); Clarity,Urine Turbid (Clear); Color,Urine Colorless (Yellow); Glucose,Urine (UA) Normal (Normal); Ketones,Urine Negative (Negative); Leukocyte Esterase,Urine Negative (Negative); Mucus,Urine Few per lpf (None-Few); Nitrite,Urine Negative (Negative); PH,Urine 6.5 pH Units (5.0-8.0); Protein,Urine Negative (Neg-Trace); RBC,Urine 0-3 per hpf (0-3); Specific Gravity,Urine 1.005 (1.010-1.025); Squamous Epithelial Cell,Urine Moderate per hpf (None-Few); Urobilinogen,Urine Normal (Normal); WBC,Urine 0-3 per hpf (0-3)
[2021-11-29] MEDS: Melatonin 3 MG TABLET PO SCH (21:36)
[2021-11-30] MEDS: *HR* HYDROcodone/Acet 5/325 mg TABLET PO PRN ×2 (00:48→08:17)
[2021-11-30] MEDS: *HR* OxyCODONE Immed Rel 5 MG TABLET PO PRN (03:09)
[2021-11-30] MEDS: Pregabalin 75 MG CAPSULE PO SCH (08:17)
[2021-11-30] MEDS: Cholecalciferol (D-3) 1,000 UNIT (25MCG) TABLET PO SCH (08:17)
[2021-11-30] MEDS: Loratadine 10 MG TABLET PO SCH (08:17)
[2021-11-30] MEDS ORDERED: Ondansetron ODT 4 MG TAB.RAPDIS SL PRN (09:49)
[2021-11-30 10:58] VITALS: BP 110/67; PULSE 85; TEMP 99; O2SAT 96
== END 2021-11-30 12:38 | disposition home or self-care (01) ==
LOC: 4WAOSI 11:20 → SDCAOSI 11:20 → 4WAOSI 19:29
PROVIDERS: ADMIT Orthopaedic Surgery Hand Surgery; ATTEND Orthopaedic Surgery Hand Surgery

== ENCOUNTER 2022-01-02 10:42 | Observation (INO) ==
[2022-01-02] MEDS ORDERED: 0.9 % Sodium Chloride 500 ML IVC ONE (10:52)
[2022-01-02] MEDS ORDERED: 0.9 % Sodium Chloride 1,000 ML IVC ONE (11:02)
[2022-01-02 11:15] LABS: Basophils % 0.5 %; Eosinophils % 0.5 %; Hematocrit 26.2 % (35.3-44.9); Hemoglobin 8.2 g/dL (11.5-15.4); Immature Granulocytes % 0.1 % (0-4); Lymphocytes % 61.3 %; Mean Corpuscular HGB Conc 31.3 g/dL (31.6-35.5); Mean Corpuscular Hemoglobin 26.3 pg (28.0-33.3); Mean Platelet Volume 12.5 fL (9.4-12.4); Monocytes # 1.2 K/mcL (0.0-1.3); Monocytes % 15.3 %; Neutrophils # 1.8 K/mcL (1.6-8.9); Platelet Count 260 K/mcL (140-400); Red Blood Count 3.12 M/mcL (3.82-4.97); Red Cell Distribution Width 16.9 % (11.5-14.5); Segmented Neutrophils % 22.3 %; White Blood Count 8.1 K/mcL (4.3-11.1)
[2022-01-02 11:34] LABS: BUN/Creatinine Ratio 20 (6-26); Blood Urea Nitrogen 14 mg/dL (8-23); Calcium 7.9 mg/dL (8.6-10.3); Carbon Dioxide 25 mEq/L (23-29); Chloride 110 mEq/L (98-107); Glucose 105 mg/dL (70-105); Osmolality,Calculated 291 (280-300); Potassium 3.5 mEq/L (3.5-5.1); Sodium 140 mEq/L (136-145); eGFR For African Americans > 60 (> 60); eGFR For Non-African Americans > 60 (> 60)
[2022-01-02 11:35] LABS: Troponin I < 0.03 ng/mL (< 0.04)
[2022-01-02 12:25] LABS: Bacteria,Urine Few per hpf (None-Few); Bilirubin,Urine Negative (Negative); Blood,Urine Moderate (Negative); Clarity,Urine Turbid (Clear); Color,Urine Yellow (Yellow); Glucose,Urine (UA) Normal (Normal); Hyaline Casts,Urine Many per lpf (None Seen); Ketones,Urine Negative (Negative); Leukocyte Esterase,Urine Large (Negative); Mucus,Urine Few per lpf (None-Few); Nitrite,Urine Positive (Negative); Protein,Urine 50 mg/dL (Neg-Trace); RBC,Urine 50-100 per hpf (0-3); Specific Gravity,Urine 1.021 (1.010-1.025); WBC,Urine TNTC per hpf (0-3)
[2022-01-02] MEDS ORDERED: cefTRIAXone 1,000 MG in 0.9 % Sodium Chloride Mini Bag 100 ML IVPB ONE (12:29)
[2022-01-02] MEDS ORDERED: *HR* HYDROcodone/Acet 10/325 mg TABLET PO ONE (12:44)
[2022-01-02] MEDS ORDERED: *HR* HYDROmorphone (PF) 1 MG/ML SYRINGE IVP ONE (13:54)
[2022-01-02] MEDS ORDERED: Naloxone 0.4 MG/ML INJ IVP PRN (13:54)
[2022-01-02] MEDS: *HR* Heparin 5,000 UNIT/ML VIAL SQ SCH (17:06)
[2022-01-02 17:12] LABS: Iron < 10 mcg/dL (50-170); Transferrin 277 mg/dL (203-362)
[2022-01-02 17:32] LABS: Folate 17.4 ng/mL (3.0-16.0)
[2022-01-02] MEDS: *HR* OxyCODONE/APAP 5/325 TABLET PO PRN (20:16)
[2022-01-02] MEDS: Melatonin 3 MG TABLET PO SCH (20:17)
[2022-01-02] MEDS ORDERED: Aspirin Enteric Coated 81 MG Tablet PO SCH (21:00)
[2022-01-02] MEDS ORDERED: Acetaminophen 325 MG TABLET PO ONE (23:35)
[2022-01-03] MEDS: *HR* OxyCODONE/APAP 5/325 TABLET PO PRN ×2 (02:50→10:19)
[2022-01-03 03:38] LABS: Basophils % 0.6 %; Eosinophils # 0.1 K/mcL (0.0-0.6); Hematocrit 26.9 % (35.3-44.9); Hemoglobin 8.3 g/dL (11.5-15.4); Immature Granulocytes % 0.1 % (0-4); Lymphocytes # 3.7 K/mcL (0.6-4.6); Lymphocytes % 52.2 %; Mean Corpuscular HGB Conc 30.9 g/dL (31.6-35.5); Mean Corpuscular Hemoglobin 25.7 pg (28.0-33.3); Mean Corpuscular Volume 83.3 fL (83.0-100.0); Mean Platelet Volume 12.6 fL (9.4-12.4); Monocytes # 1.2 K/mcL (0.0-1.3); Monocytes % 16.5 %; Neutrophils # 2.1 K/mcL (1.6-8.9); Platelet Count 272 K/mcL (140-400); Red Blood Count 3.23 M/mcL (3.82-4.97); Red Cell Distribution Width 16.5 % (11.5-14.5); Segmented Neutrophils % 29.6 %; White Blood Count 7.1 K/mcL (4.3-11.1)
[2022-01-03 03:54] LABS: Alanine Aminotransferase 9 Units/L (7-52); Albumin 2.9 g/dL (3.5-5.7); Albumin/Globulin Ratio 1.1 (1.1-2.2); Alkaline Phosphatase 78 Units/L (34-104); Aspartate Amino Transferase 24 Units/L (13-39); BUN/Creatinine Ratio 13 (6-26); Bilirubin,Total 0.2 mg/dL (0.3-1.0); Blood Urea Nitrogen 8 mg/dL (8-23); Calcium 7.6 mg/dL (8.6-10.3); Carbon Dioxide 23 mEq/L (23-29); Chloride 110 mEq/L (98-107); Globulin 2.6 g/dL (2.4-3.5); Glucose 96 mg/dL (70-105); Osmolality,Calculated 288 (280-300); Potassium 3.5 mEq/L (3.5-5.1); Sodium 140 mEq/L (136-145); Total Protein 5.5 g/dL (6.4-8.9); eGFR For African Americans > 60 (> 60); eGFR For Non-African Americans > 60 (> 60)
[2022-01-03] MEDS: *HR* Heparin 5,000 UNIT/ML VIAL SQ SCH ×2 (05:18→17:38)
[2022-01-03] MEDS: cefTRIAXone 1,000 MG in Water for inj. (sterile) 10 ML IVP SCH (07:50)
[2022-01-03] MEDS ORDERED: Nitroglycerin 0.4 MG TAB.SUBL SL PRN (09:40)
[2022-01-03] MEDS ORDERED: Ipratropium/Albuterol Neb 3 ML IH PRN (09:40)
[2022-01-03] MEDS ORDERED: Iron Sucrose Complex 400 MG in 0.9 % Sodium Chloride 250 ML IVPB ONE (11:53)
[2022-01-03] MEDS: Ondansetron 4 MG/2 ML VIAL IVP PRN ×2 (12:33→19:14)
[2022-01-03] MEDS: *HR* OxyCODONE Immed Rel 5 MG TABLET PO PRN (15:27)
[2022-01-03] MEDS ORDERED: FLUoxetine 20 MG CAPSULE PO SCH (21:00)
[2022-01-03] MEDS ORDERED: hydrOXYzine pamoate 25 MG CAPSULE PO SCH (21:00)
[2022-01-03] MEDS: Melatonin 3 MG TABLET PO SCH (21:23)
[2022-01-03] MEDS: Pregabalin 75 MG CAPSULE PO SCH (21:23)
[2022-01-04] MEDS: *HR* OxyCODONE Immed Rel 5 MG TABLET PO PRN ×2 (01:14→07:50)
[2022-01-04 02:02] LABS: Hematocrit 29.6 % (35.3-44.9); Mean Corpuscular HGB Conc 30.4 g/dL (31.6-35.5); Mean Corpuscular Hemoglobin 25.5 pg (28.0-33.3); Mean Corpuscular Volume 83.9 fL (83.0-100.0); Mean Platelet Volume 12.9 fL (9.4-12.4); Platelet Count 281 K/mcL (140-400); Red Blood Count 3.53 M/mcL (3.82-4.97); Red Cell Distribution Width 16.8 % (11.5-14.5); White Blood Count 8.1 K/mcL (4.3-11.1)
[2022-01-04 02:21] LABS: BUN/Creatinine Ratio 13 (6-26); Blood Urea Nitrogen 7 mg/dL (8-23); Calcium 7.9 mg/dL (8.6-10.3); Carbon Dioxide 26 mEq/L (23-29); Chloride 107 mEq/L (98-107); Glucose 106 mg/dL (70-105); Osmolality,Calculated 288 (280-300); Potassium 3.4 mEq/L (3.5-5.1); Sodium 140 mEq/L (136-145); eGFR For African Americans > 60 (> 60); eGFR For Non-African Americans > 60 (> 60)
[2022-01-04 04:07] VITALS: O2SAT 90
[2022-01-04] MEDS: *HR* Heparin 5,000 UNIT/ML VIAL SQ SCH (05:36)
[2022-01-04 06:55] VITALS: PULSE 57
[2022-01-04] MEDS: cefTRIAXone 1,000 MG in Water for inj. (sterile) 10 ML IVP SCH (07:51)
[2022-01-04] MEDS: Pregabalin 75 MG CAPSULE PO SCH (07:51)
[2022-01-04] MEDS ORDERED: Loratadine 10 MG TABLET PO SCH (09:00)
[2022-01-04 11:21] VITALS: BP 99/58; TEMP 97.4
== END 2022-01-04 13:14 | disposition home or self-care (01) ==
LOC: EMEROOARM 10:42 → 2ANU 10:42
PROVIDERS: ADMIT Internal Medicine; ATTEND Internal Medicine

== ENCOUNTER 2022-02-06 06:10 | Inpatient (IN) ==
[2022-02-06] MEDS ORDERED: CeFAZolin Syr 2,000MG/20 ML 2,000 MG/20 ML SYRINGE IVPB ONE (06:24)
[2022-02-06] MEDS ORDERED: Ringers Solution, Lactated 1,000 ML IVC SCH (06:30)
[2022-02-06] MEDS ORDERED: Lidocaine HCL 4 ML Topical Solution (Laryng-O-Jet Kit Sterile Pak) TP ONE (07:00)
[2022-02-06] MEDS ORDERED: Famotidine 20 MG TABLET PO ONE (07:00)
[2022-02-06] MEDS ORDERED: *HR* OxyCODONE Immed Rel 5 MG TABLET PO ONE (07:00)
[2022-02-06] MEDS ORDERED: Ondansetron 4 MG/2 ML VIAL ONE (07:00)
[2022-02-06] MEDS ORDERED: tiZANidine 4 MG TABLET PO ONE ×2 (07:00→13:37)
[2022-02-06] MEDS ORDERED: Lidocaine -MPF 2% 2 ML VIAL ONE (07:00)
[2022-02-06] MEDS ORDERED: *HR* Phenylephrine 10 MG/ML VIAL ONE (07:02)
[2022-02-06] MEDS ORDERED: *HR* Propofol 200 MG/20 ML VIAL IVP ONE ×3 (07:13→08:33)
[2022-02-06] MEDS ORDERED: *HR* Succinylcholine 200 MG/10 ML VIAL IVP ONE (07:20)
[2022-02-06] MEDS ORDERED: *HR* Rocuronium Bromide 50 MG/5 ML VIAL ONE (07:20)
[2022-02-06] MEDS ORDERED: dexmedeTOMIDine in 0.9 % NaCL 80 MCG/20 ML MLS ONE (07:22)
[2022-02-06] MEDS ORDERED: *HR* FentaNYL (PF) 100 MCG/2 ML VIAL ONE ×2 (07:22→11:35)
[2022-02-06] MEDS ORDERED: *HR* Remifentanil 2 MG VIAL IVP ONE (07:23)
[2022-02-06] MEDS ORDERED: Bacitracin OINT PKT TP ONE (07:25)
[2022-02-06] MEDS ORDERED: Vancomycin 1,000 MG VIAL ONE (07:33)
[2022-02-06] MEDS ORDERED: Ketamine HCL *QUVA* 50mg (1mL) SYRINGE ONE (09:10)
[2022-02-06] MEDS ORDERED: Ondansetron 4 MG/2 ML VIAL IVP PRN ×2 (12:28→14:42)
[2022-02-06] MEDS: *HR* HYDROmorphone PF 0.5 MG/0.5 ML SYRINGE IVP PRN ×3 (12:38→13:09)
[2022-02-06] MEDS ORDERED: Ketorolac 30 MG/ML VIAL IM ONE (13:37)
[2022-02-06] MEDS ORDERED: Ipratropium/Albuterol Neb 3 ML IH PRN (14:42)
[2022-02-06] MEDS ORDERED: Naloxone 0.4 MG/ML INJ IVP PRN (14:42)
[2022-02-06] MEDS ORDERED: Acetaminophen 325 MG TABLET PO PRN ×2 (14:42)
[2022-02-06] MEDS ORDERED: (Diclofenac Sodium [Arthritis Pain] 100 GM Gel) TP PRN (15:16)
[2022-02-06] MEDS: hydrOXYzine pamoate 25 MG CAPSULE PO SCH ×2 (16:21→21:16)
[2022-02-06] MEDS: Ringers Solution, Lactated 1,000 ML IVC SCH (16:22)
[2022-02-06] MEDS: CeFAZolin 2 GM/120 ML BAG IVPB SCH (16:37)
[2022-02-06] MEDS: *HR* OxyCODONE Immed Rel 5 MG TABLET PO PRN ×2 (17:37→21:35)
[2022-02-06] MEDS ORDERED: MELATONIN 10 MG PO SCH (21:00)
[2022-02-06] MEDS: FLUoxetine 20 MG CAPSULE PO SCH (21:16)
[2022-02-06] MEDS: Pregabalin 75 MG CAPSULE PO SCH (21:16)
[2022-02-07] MEDS: Ringers Solution, Lactated 1,000 ML IVC SCH (01:04)
[2022-02-07] MEDS: tiZANidine 4 MG TABLET PO PRN ×2 (01:04→22:36)
[2022-02-07] MEDS: CeFAZolin 2 GM/120 ML BAG IVPB SCH (01:04)
[2022-02-07] MEDS: Melatonin 3 MG TABLET PO SCH ×2 (01:05→22:34)
[2022-02-07] MEDS: *HR* HYDROcodone/Acet 5/325 mg TABLET PO PRN ×3 (03:51→18:30)
[2022-02-07] MEDS: *HR* OxyCODONE Immed Rel 5 MG TABLET PO PRN ×2 (06:49→14:15)
[2022-02-07] MEDS: hydrOXYzine pamoate 25 MG CAPSULE PO SCH ×3 (08:45→22:36)
[2022-02-07] MEDS: Pregabalin 75 MG CAPSULE PO SCH ×2 (08:45→22:36)
[2022-02-07] MEDS: Cholecalciferol (D-3) 1,000 UNIT (25MCG) TABLET PO SCH (08:45)
[2022-02-07] MEDS: Loratadine 10 MG TABLET PO SCH (08:46)
[2022-02-07] MEDS: FLUoxetine 20 MG CAPSULE PO SCH (22:34)
[2022-02-08] MEDS: *HR* OxyCODONE Immed Rel 5 MG TABLET PO PRN ×2 (06:12→11:39)
[2022-02-08 06:44] VITALS: TEMP 98
[2022-02-08] MEDS: Loratadine 10 MG TABLET PO SCH (07:48)
[2022-02-08] MEDS: hydrOXYzine pamoate 25 MG CAPSULE PO SCH (07:49)
[2022-02-08] MEDS: Cholecalciferol (D-3) 1,000 UNIT (25MCG) TABLET PO SCH (07:49)
[2022-02-08] MEDS: Pregabalin 75 MG CAPSULE PO SCH (07:49)
[2022-02-08] MEDS: *HR* HYDROcodone/Acet 5/325 mg TABLET PO PRN (09:39)
[2022-02-08] MEDS ORDERED: Ondansetron ODT 4 MG TAB.RAPDIS SL PRN (10:38)
[2022-02-08 11:19] VITALS: BP 108/73; PULSE 73; O2SAT 96
== END 2022-02-08 14:46 | DRG 472 ==
LOC: SDCAOSI 06:10 → 4WAOSI 14:17
PROVIDERS: ADMIT Orthopaedic Surgery Orthopaedic Surgery of the Spine; ATTEND Orthopaedic Surgery Orthopaedic Surgery of the Spine